=== PATIENT | male | born 1970 | race Caucasian/White ===

== ENCOUNTER 2016-11-04 07:20 | Inpatient (IN) | payer BC ==
[~2016-11-04] VITALS: Ht 175.3 cm; Wt 76.4 kg
[2016-11-04] VITALS (7 sets, daily range): BP systolic 90–116; BP diastolic 64–83
[2016-11-04 07:34] LABS: BASOPHILS % (AUTO) 0 % (0-10); EOSINOPHILS # (AUTO) 0.4 10^3/uL (0.0-0.3); EOSINOPHILS % (AUTO) 4 % (0-10); LYMPHOCYTES # (AUTO) 2.7 X 10^3 (1.0-4.0); LYMPHOCYTES % (AUTO) 24 % (12-44); MEAN CORPUSCULAR HEMOGLOBIN 30 PG (25-34); MEAN CORPUSCULAR HGB CONC 34 G/DL (32-36); MEAN CORPUSCULAR VOLUME 89 FL (80-99); MEAN PLATELET VOLUME 10.5 FL (7.4-10.4); MONOCYTES # (AUTO) 1.2 X 10^3 (0.0-1.0); MONOCYTES % (AUTO) 11 % (0-12); NEUTROPHILS % (AUTO) 61 % (42-75); PLATELET COUNT 368 10^3/uL (130-400); RED BLOOD COUNT 4.71 10^6/uL (4.35-5.85); RED CELL DISTRIBUTION WIDTH 13.2 % (10.0-14.5); WHITE BLOOD COUNT 11.4 10^3/uL (4.3-11.0)
[2016-11-04] MEDS ORDERED: LIDOCAINE 2% VISCOUS 15 ML UDC PO ONE (07:45)
[2016-11-04] MEDS ORDERED: ANTACID SUSP 30 ML UDC (MYLANTA) PO ONE (07:45)
[2016-11-04 07:51] LABS: INR 0.9 (0.8-1.4); PROTHROMBIN TIME PATIENT 12.2 SEC (12.2-14.7)
--- NOTE | 2016-11-04 07:55 | ED Chest Pain ---
General Chief Complaint: Chest Pain Stated Complaint: CHEST PAIN Nursing Triage Note: AMB TO ROOM C/O CHEST TIGHTNESS, PRESSURE OFF AND OFF FOR 2 WEEKS FELT LIKE LAST 2 DAYS HAS GOTTEN WORSE. Nursing Sepsis Screen: No Definite Risk Source: patient Exam Limitations: no limitations History of Present Illness Time seen by provider: 07:25 Initial Comments Patient complains of substernal burning in chest for the past 2 months. It is increased in severity and has become constant for the past 2 days. He has been unable to sleep past 2 nights due to pain. Symptoms are better when upright and worse when supine bus he has been attempting to sleep in a recliner the past few nights. He denies shortness of air or nausea or vomiting. No diaphoresis. Allergies and Home Medications Allergies Coded Allergies: No Known Drug Allergies (Unverified , 11/04/16) Home Medications No Active Prescriptions or Reported Meds Review of Systems Constitutional: No chills, No fever EENTM: No Symptoms Reported Respiratory: No Symptoms Reported Gastrointestinal: No Symptoms Reported Genitourinary: No Symptoms Reported Musculoskeletal: no symptoms reported Skin: no symptoms reported All Other Systems Reviewed Negative Unless Noted: Yes Past Habwpyp-Dcdxkt-Pwglrp Hx Patient Social History Alcohol Use: Occasionally Uses Recreational Drug Use: No Recent Foreign Travel: No Contact w/Someone Who Travel: No Recent Infectious Disease Expo: No Recent Hopitalizations: No Surgeries HX Surgeries: Yes (cyst) Surgeries: Vasectomy Respiratory Hx Respiratory Disorders: No Cardiovascular Hx Cardiac Disorders: No Neurological Hx Neurological Disorders: No Genitourinary Hx Genitourinary Disorders: No Gastrointestinal Hx Gastrointestinal Disorders: No Musculoskeletal Hx Musculoskeletal Disorders: No Endocrine Hx Endocrine Disorders: No HEENT HX ENT Disorders: No Cancer Hx Cancer: No Psychosocial Hx Psychiatric Problems: No Reviewed Nursing Assessment Reviewed/Agree w Nursing PMH: Yes Physical Exam Vital Signs Vital Sign - Last 12Hours 11/04/16 07:20 Temp 98.6 Pulse 75 Resp 18 B/P (MAP) 164/114 Capillary Refill : Less Than 3 Seconds General Appearance: No Apparent Distress, WD/WN HEENT: PERRL/EOMI, Pharynx Normal Neck: Supple Respiratory: Lungs Clear, Normal Breath Sounds Cardiovascular: Regular Rate, Rhythm, No Edema Gastrointestinal: Normal Bowel Sounds, Non Tender Extremity: Normal Inspection, No Pedal Edema, Other (pedal pulses full and equal) Neurologic/Psychiatric: Alert, Normal Mood/Affect Skin: Normal Color, Warm/Dry Progress/Results/Core Measures Results/Orders Lab Results Laboratory Tests Test 11/04/16 07:27 11/04/16 07:29 Range/Units Lipase 19 8-78 U/L White Blood Count 11.4 H 4.3-11.0 10^3/uL Red Blood Count 4.71 4.35-5.85 10^6/uL Hemoglobin 14.3 13.3-17.7 G/DL Hematocrit 42 40-54 % Mean Corpuscular Volume 89 80-99 FL Mean Corpuscular Hemoglobin 30 25-34 PG Mean Corpuscular Hemoglobin Concent 34 32-36 G/DL Red Cell Distribution Width 13.2 10.0-14.5 % Platelet Count 368 130-400 10^3/uL Mean Platelet Volume 10.5 H 7.4-10.4 FL Neutrophils (%) (Auto) 61 42-75 % Lymphocytes (%) (Auto) 24 12-44 % Monocytes (%) (Auto) 11 0-12 % Eosinophils (%) (Auto) 4 0-10 % Basophils (%) (Auto) 0 0-10 % Neutrophils # (Auto) 7.0 1.8-7.8 X 10^3 Lymphocytes # (Auto) 2.7 1.0-4.0 X 10^3 Monocytes # (Auto) 1.2 H 0.0-1.0 X 10^3 Eosinophils # (Auto) 0.4 H 0.0-0.3 10^3/uL Basophils # (Auto) 0.0 0.0-0.1 10^3/uL Prothrombin Time 12.2 12.2-14.7 SEC INR Comment 0.9 0.8-1.4 Activated Partial Thromboplast Time 32 24-35 SEC Sodium Level 137 135-145 MMOL/L Potassium Level 4.0 3.6-5.0 MMOL/L Chloride Level 101 98-107 MMOL/L Carbon Dioxide Level 20 L 21-32 MMOL/L Anion Gap 16 H 5-14 MMOL/L Blood Urea Nitrogen 14 7-18 MG/DL Creatinine 0.84 0.60-1.30 MG/DL Estimat Glomerular Filtration Rate > 60 BUN/Creatinine Ratio 17 Glucose Level 101 70-105 MG/DL Calcium Level 9.3 8.5-10.1 MG/DL Magnesium Level 2.4 1.8-2.4 MG/DL Total Bilirubin 0.3 0.1-1.0 MG/DL Aspartate Amino Transf (AST/SGOT) 55 H 5-34 U/L Alanine Aminotransferase (ALT/SGPT) 24 0-55 U/L Alkaline Phosphatase 71 40-136 U/L Troponin I 4.55 *H <0.30 NG/ML Total Protein 7.9 6.4-8.2 G/DL Albumin 4.6 H 3.2-4.5 G/DL My Orders Orders - PHILLY BARRON MD Cbc With Automated Diff (11/04/16 07:28) Magnesium (11/04/16 07:28) Chest 1 View, Ap/Pa Only (11/04/16:28) Ekg Tracing (11/04/16:28) Cardiac Profile 1 (11/04/16 07:28) Comprehensive Metabolic Panel (11/04/16 07:28) Protime With Inr (11/04/16 07:28) Partial Thromboplastin Time (11/04/16 07:28) O2 (11/04/16 07:28) Monitor-Rhythm Ecg Trace Only (11/04/16 07:28) Saline Lock/Iv-Start (11/04/16 07:28) Lipase (11/04/16 07:37) Antacid Suspension (Mylanta Suspension (11/04/16 07:45) Lidocaine 2% Viscous 15 Ml (Xylocaine Vi (11/04/16 07:45) Amlodipine Tablet (Norvasc Tablet) (11/04/16 08:15) Aspirin Chewable Tablet (Baby Aspirin Ch (11/04/16 08:15) Nitroglycerin Ointment (Nitrobid Ointme (11/04/16 08:15) Metoprolol Succinate (Xl) Tab (Toprol Xl (11/04/16 08:15) Clopidogrel Tablet (Plavix Tablet) (11/04/16 08:15) Clopidogrel Tablet (Plavix Tablet) (11/04/16 08:13) Medications Given in ED Current Medications Medications Dose Ordered Sig/Gayatri Route Start Time Stop Time Status Last Admin Dose Admin Al Hydrox/Mg Hydrox/Simethicone 30 ml ONCE ONCE PO 11/04/16 07:45 11/04/16 07:47 DC 11/04/16 07:51 30 ML Amlodipine Besylate 10 mg ONCE ONCE PO 11/04/16 08:15 11/04/16 08:16 DC 11/04/16 08:18 10 MG Aspirin 324 mg ONCE ONCE PO 11/04/16 08:15 11/04/16 08:16 DC 11/04/16 08:17 324 MG Clopidogrel Bisulfate 300 mg STK-MED ONCE PO 11/04/16 08:13 11/04/16 08:16 DC 11/04/16 08:18 300 MG Lidocaine HCl 5 ml ONCE ONCE PO 11/04/16 07:45 11/04/16 07:47 DC 11/04/16 07:51 5 ML Nitroglycerin 1 inch ONCE ONCE TOP 11/04/16 08:15 11/04/16 08:16 DC 11/04/16 08:20 1 INCH Vital Signs/I&O Vital Sign - Last 12Hours 11/04/16 07:20 Temp 98.6 Pulse 75 Resp 18 B/P (MAP) 164/114 Blood Pressure Mean: 131 ECG Initial ECG Rhythm: Normal Sinus Initial ECG Intervals: Normal Initial ECG Impression: Nonspecific Changes Diagnostic Imaging Comments Date of Exam: 11/04/16 CHEST 1 VIEW, AP/PA ONLY Portable upright radiograph of the chest. INDICATION: Chest pain. FINDINGS: The lungs are clear. Heart size is normal. No effusion or pneumothorax. The mediastinum and david appear unremarkable. IMPRESSION: Unremarkable exam. Departure Communication Time/Spoke to Admitting Phy: 08:[address] Guillermo was contacted immediately after troponin results were obtained. He advised aspirin Toprol and Plavix. He will take the patient to the laboratory chemical assistant later this morning. Dr. Negrete was also contacted she will admit the patient to the ICU. Progress Notes Patient was advised of laboratory findings and plan of care. Impression Impression: Primary Impression: Non-STEMI (non-ST elevated myocardial infarction) Disposition: 09 ADMITTED INPATIENT Condition: Stable Decision to Admit Reason: Admit from ER (General) Decision to Admit/Date: Nov 04, 2016 Time/Decision to Admit Time: 08:25 Departure-Patient Inst. Referrals: ÁNGEL CUMMINGS MD (PCP/Family) Primary Care Physician Scripts No Active Prescriptions or Reported Meds PHILLY BARRON MD Nov 04, 2016 07:55
[2016-11-04 08:04] LABS: ALANINE AMINOTRANSFERASE 24 U/L (0-55); ALBUMIN 4.6 G/DL (3.2-4.5); ANION GAP 16 MMOL/L (5-14); ASPARTATE AMINO TRANSFERASE 55 U/L (5-34); BILIRUBIN,TOTAL 0.3 MG/DL (0.1-1.0); BLOOD UREA NITROGEN 14 MG/DL (7-18); BUN/CREATININE RATIO 17; CALCIUM 9.3 MG/DL (8.5-10.1); CARBON DIOXIDE 20 MMOL/L (21-32); CHLORIDE 101 MMOL/L (98-107); CREATININE SERUM 0.84 MG/DL (0.60-1.30); GFR ESTIMATED > 60; GLUCOSE 101 MG/DL (70-105); MAGNESIUM 2.4 MG/DL (1.8-2.4); SODIUM 137 MMOL/L (135-145); TOTAL PROTEIN 7.9 G/DL (6.4-8.2)
[2016-11-04] MEDS ORDERED: CLOPIDOGREL 300 MG (PLAVIX) TABLET PO ONE ×3 (08:13→10:32)
[2016-11-04] MEDS ORDERED: NITROGLYCERIN 2% OINT 1 GM UNIT DOSE PACKET TOP ONE (08:15)
[2016-11-04] MEDS ORDERED: meTOproloL SUCCINATE 50 MG (TOPROL XL) TAB PO SCH (08:15)
[2016-11-04] MEDS ORDERED: amLODIPine 10 MG (NORVASC) TAB PO ONE (08:15)
[2016-11-04] MEDS ORDERED: ASPIRIN 81 MG CHEW (CHILDREN'S ASA) PO ONE (08:15)
[2016-11-04] MEDS ORDERED: NS IV 1000 ML 1,000 ML IV ONE (09:21)
[2016-11-04] MEDS ORDERED: LIDOCAINE 1% INJ 20 ML (XYLOCAINE) VIAL INJ ONE (09:21)
[2016-11-04] MEDS ORDERED: HEParin (CATH LAB) 1,000 ML IV ONE (09:25)
[2016-11-04] MEDS ORDERED: fentaNYL INJECTION 100 MCG/2 ML AMP ONE (09:29)
[2016-11-04] MEDS ORDERED: NITROGLYCERIN DRIP 25 MG/D5W 250 ML IV ONE (09:29)
[2016-11-04] MEDS ORDERED: MIDAZOLAM 5 MG/5 ML (VERSED) VIAL ONE (09:29)
[2016-11-04] MEDS ORDERED: diphenhydrAMINE 50 MG/ML INJ (BENADRYL) ONE (09:29)
--- NOTE | 2016-11-04 09:31 | Cardiology History & Physical ---
HPI-Cardiology Cardiology H&P Date of Admission 11/04/16 Primary Care Physician Shemar Fernandez MD Attending Physician Ada Rincon MD FACP [facility] Consulting Physician SHIELA CC: Chest pain HPI: 46 yo man with 2 days of waxing and waning, but continuous discomfort: mid chest, burning, sometimes radiating to the L arm, without aggravating or relieving factors, not associated with other symptoms, worse today that prompted him to come to ER] Denies shortness of breath or palp or syncope. Notes chronic borderline htn, untreated. Denies leg swelling Review of Systems-Cardiology Review of Systems Constitutional: No lightheadedness, No malaise, No weight loss, No weight gain Eyes: No vision change Ears/Nose/Throat: No ear discharge, No nasal drainage, No recent hearing loss Respiratory: No orthopnea, No shortness of breath, No wheezing Cardiovascular: As described under HPI Gastrointestinal: No constipation, No diarrhea, No nausea, No vomiting Genitourinary: No dysuria, No hematuria, No urine frequency changes Musculoskeletal: No back pain, No joint pain Skin: No rash, No ulcerations Psychiatric/Neurological: No focal weakness, No seizure, No syncope Hematologic: No bleeding abnormalities All Other Systems Reviewed Negative Unless Noted: Yes OOJ-Lxatiz-Nrlcmz Hx Patient Social History Alcohol Use: Occasionally Uses Recreational Drug Use: No Recent Foreign Travel: No Recent Infectious Disease Expo: No Hospitalization with Isolation: Denies Past Medical History PMH As described under Assessment. Family Medical History Family Medical History: Has fam h/o DM II, but no fam h/o early CAD or SCD Allergies and Home Medications Allergies Coded Allergies: No Known Drug Allergies (Unverified , 11/04/16) Home Medications No Active Prescriptions or Reported Meds Physical Exam-Cardiology Physical Exam Vital Signs/I&O Vital Sign - Last 12Hours 11/04/16 11/04/16 07:20 07:35 Temp 98.6 Pulse 75 Resp 18 B/P (MAP) 164/114 O2 Delivery Nasal Cannula O2 Flow Rate 2.00 Capillary Refill : Less Than 3 Seconds Constitutional: AAO x 3, well-developed, well-nourished HEENT: EOMI, hearing is well preserved, oral hygience is good, No xanthelasmas are seen Neck: No carotid bruit, carotid pulses are 2 + bilaterally, with good upstrokes Respiratory: No accessory muscle use, lungs clear to percussion, lungs clear to auscultation Cardiovascular: regular rate-rhythm, S1 and S2, systolic murmur (faint RAFIA at card base) Gastrointestinal: No tender, soft, No guarding, audible bowel sounds Extremities: No clubbing, No cyanosis, No significant edema Neurologic/Psychiatric: grossly intact, power is 5/5 both on sides Skin: No rash on exposed areas, No ulcerations on exposed areas Data Review Labs Laboratory Tests 11/04/16 07:27: Lipase 19 11/04/16 07:29: White Blood Count 11.4H, Red Blood Count 4.71, Hemoglobin 14.3, Hematocrit 42, Mean Corpuscular Volume 89, Mean Corpuscular Hemoglobin 30, Mean Corpuscular Hemoglobin Concent 34, Red Cell Distribution Width 13.2, Platelet Count 368, Mean Platelet Volume 10.5H, Neutrophils (%) (Auto) 61, Lymphocytes (%) (Auto) 24 , Monocytes (%) (Auto) 11, Eosinophils (%) (Auto) 4, Basophils (%) (Auto) 0, Neutrophils # (Auto) 7.0, Lymphocytes # (Auto) 2.7, Monocytes # (Auto) 1.2H, Eosinophils # (Auto) 0.4H, Basophils # (Auto) 0.0, Prothrombin Time 12.2, INR Comment 0.9, Activated Partial Thromboplast Time 32, Sodium Level 137, Potassium Level 4.0, Chloride Level 101, Carbon Dioxide Level 20L, Anion Gap 16H , Blood Urea Nitrogen 14, Creatinine 0.84, Estimat Glomerular Filtration Rate > 60, BUN/Creatinine Ratio 17, Glucose Level 101, Calcium Level 9.3, Magnesium Level 2.4, Total Bilirubin 0.3, Aspartate Amino Transf (AST/SGOT) 55H, Alanine Aminotransferase (ALT/SGPT) 24, Alkaline Phosphatase 71, Troponin I 4.55*H, Total Protein 7.9, Albumin 4.6H Laboratory Tests 11/04/16 07:29 A/P-Cardiology Assessment/Admission Diagnosis Acute NSTEMI Hypertension Discussion and Recomendations * Treated with aspirin and clopidogrel and beta-sabiha * I had a detailed discussion with him. Cath recommended. I explained the rationale, procedure, risks, benefits and potential complications of card cath and ad hoc cor intervention to him. He understands and wises to proceed. Arrangements are being made Clinical Quality Measures AMI/AHF: ASA po Prior to arrival: Yes (TOOK 325 AT HOME ) ADA RINCON MD FACP FACC CCDS Nov 04, 2016 09:31
[2016-11-04] MEDS ORDERED: NS IV 1000 ML 1,000 ML IV SCH ×2 (09:45→10:38)
[2016-11-04] MEDS ORDERED: HEParin 1000 UNIT/ML (10ML VIAL) FOR BOLUS ONE (09:58)
[2016-11-04] MEDS ORDERED: EPTIFIBATIDE BOLUS 20 ML IV ONE (09:58)
[2016-11-04] MEDS ORDERED: ACETAMINOPHEN 325 MG TABLET/CAPLET (TYLENOL) PO PRN (10:45)
[2016-11-04] MEDS ORDERED: PATIENT MAY USE OWN MEDS, ALL PO SCH (10:45)
[2016-11-04] MEDS ORDERED: lisINopril 10 MG (PRINIVIL) TAB PO NR (11:00)
--- NOTE | 2016-11-04 11:09 | Cardiac Procedure Note-CS/ASA ---
Pre-Procedure Note Pre-Op Procedure Note H&P Reviewed The H&P was reviewed, patient examined and no changes noted. Date H&P Reviewed: Nov 04, 2016 Time H&P Reviewed: 09:10 Conscious Sedation Pre-Proced Time Reviewed: 09:10 ASA Class: 3 Airway Mallampati Classification: (kaltag appropriate class) I. II. III, IV Lungs Heart ASA score ASA 1: a normal healthy patient ASA 2: a patient with a mild systemic disease (mid diabetes, controlled hypertension, obesity ASA 3: a patient with a severe systemic disease that limits activity (angina , COPD, prior Myocardial infarction) ASA 4: a patient with an incapacitating disease that is a constant threat to life (CHF, renal failure) ASA 5: a moribund patient not expected to survive 24 hrs. (ruptured aneurysm) ASA 6: a declared brain patient whose organs are being harvested. For emergent operations, add the letter E after the classification Grade 2 Sedation Plan: Analgesia, Amnesia, Plan communicated to team members, Discussed options with patient/fam, Discussed risks with patient/fam Note The patient is an appropriate candidate to undergo the planned procedure, sedation, and anesthesia. The patient immediately re-assessed prior to indication. ADRYAN RINCON MD FACP FAC CCDS Nov 04, 2016 11:09
--- NOTE | 2016-11-04 12:42 | CARDIAC CATHETERIZATION ---
PROCEDURE PHYSICIAN: ADRYAN RINCON DATE OF PROCEDURE: 11/04/2016 Qasim Spann is a 46-year-old gentleman who presented with acute non-ST elevation myocardial infarction. Cardiac catheterization was carried out after having obtained an informed consent. PROCEDURE: He was brought to the cardiac catheterization laboratory. The right groin was prepared and draped in the usual sterile fashion. 1% lidocaine was used for local anesthesia. Modified Seldinger technique was used to advance a 5-Gibraltarian sheath in the right femoral artery. A 5-Gibraltarian JL4 catheter was used for left coronary angiography. A 5-Gibraltarian JR4 catheter for right coronary angiography. A 5-Gibraltarian pigtail catheter was used for left heart catheterization and left ventricular angiography. PERCUTANEOUS INTERVENTION TO LEFT ANTERIOR DESCENDING ARTERY: Following completion of the diagnostic procedure, we carried out percutaneous intervention to an occluded left anterior descending artery. We exchanged the sheath over a wire for a 6-Gibraltarian sheath. We used a 6-Gibraltarian JL4 guide catheter to engage the left coronary system. We used a ChoICE floppy wire to cross the occlusion in the mid portion of the left anterior descending artery, following origin of the first diagonal branch. The tip was placed in the distal vessel. We carried out balloon angioplasty with Emerge 2.5 x 30 mm balloon. The balloon was removed and we then stented artery with Alpine Xience 2.75 x 28 mm stent. The stent extends up to the origin of the first diagonal branch, but has not been placed across the ostium of the first diagonal branch. Following stent deployment, there is 0% residual stenosis and flow was improved from WIL 0 to WIL 3 in the distal left anterior descending. The proximal left anterior descending, proximal to the bifurcation of the left anterior descending at its first diagonal branch, has approximately 40% stenosis that was not intervened on. The patient tolerated the procedure well. He received 5000 units of intravenous heparin and a double bolus of Integrilin during the procedure. He had received 324 mg of aspirin in the emergency room and 300 mg of Plavix in the emergency room. Following completion of the interventional procedure, we gave another 300 mg of oral Plavix. HEMODYNAMICS: Left ventricular end diastolic pressure following coronary angiography was 11 mmHg. There was no significant pressure gradient on pullback across the aortic valve. Ascending aortic pressure was 120/90 with a mean of 70 mmHg. LEFT VENTRICULAR ANGIOGRAPHY: Left ventricular angiography was carried out in the right anterior oblique projection. There is anteroapical akinesis. Left ventricular ejection fraction is approximately 35 to 40%. There does not appear to be significant mitral regurgitation. CORONARY ANGIOGRAPHY: The left main coronary does not exhibit significant disease. The left anterior descending artery has 40% stenosis at its proximal portion and the left anterior descending artery is occluded following the origin of the first diagonal branch. To this, successful intervention was carried out. Following deployment of Alpine Xience 2.75 x 28 mm stent in the mid left anterior descending artery, there is 0% residual stenosis and normal flow was restored antegradely. The left circumflex artery has mild diffuse plaques. The right coronary artery is dominant and has mild plaques. CONCLUSIONS: 1. Coronary artery disease, primarily consisting of mid vessel occlusion of the left anterior descending artery to which successful stenting was carried out. Following deployment of Alpine Xience 2.75 x 18 mm stent, there is 0% residual stenosis and there is scientology of normal antegrade flow. The proximal left anterior descending artery has 40% stenosis, which was not intervened on. The rest of the coronary vessels have relatively mild plaques. 2. Ischemic cardiomyopathy with an ejection fraction of 35 to 40% and with anteroapical akinesis. 3. Normal left ventricular end-diastolic pressure. 4. No significant mitral regurgitation. DISCUSSION AND RECOMMENDATIONS: Aspirin and clopidogrel and beta blockers and statins have been added to the regimen. We are also adding GEETHA inhibitors, given his ischemic cardiomyopathy. We will evaluate his lipid profile. We have initiated therapy with statins, in the meanwhile. He is being hospitalized for further treatment. Job ID: [id number] Dictated Date: 11/04/2016 11:21:52 Hide Puller Date: 11/04/2016 12:24:24 / rodríguez CHEN
[2016-11-04] MEDS: ATORVASTATIN 20 MG (LIPITOR) TABLET PO SCH (20:38)
[2016-11-05] VITALS (24 sets, daily range): BP systolic 90–136; BP diastolic 63–90
[2016-11-05 04:11] LABS: MEAN PLATELET VOLUME 10.8 FL (7.4-10.4); RED BLOOD COUNT 4.13 10^6/uL (4.35-5.85); RED CELL DISTRIBUTION WIDTH 13.3 % (10.0-14.5); WHITE BLOOD COUNT 12.2 10^3/uL (4.3-11.0)
[2016-11-05 04:34] LABS: ALANINE AMINOTRANSFERASE 19 U/L (0-55); ALBUMIN 3.7 G/DL (3.2-4.5); ANION GAP 8 MMOL/L (5-14); ASPARTATE AMINO TRANSFERASE 46 U/L (5-34); BLOOD UREA NITROGEN 11 MG/DL (7-18); BUN/CREATININE RATIO 13; CALCIUM 8.7 MG/DL (8.5-10.1); CARBON DIOXIDE 26 MMOL/L (21-32); CHLORIDE 103 MMOL/L (98-107); CHOLESTEROL 171 MG/DL (< 200); CREATININE SERUM 0.84 MG/DL (0.60-1.30); DIRECT LDL 120 MG/DL (1-129); GFR ESTIMATED > 60; GLUCOSE 97 MG/DL (70-105); POTASSIUM 4.2 MMOL/L (3.6-5.0); SODIUM 137 MMOL/L (135-145); TOTAL PROTEIN 6.1 G/DL (6.4-8.2); TRIGLYCERIDES 152 MG/DL (<150); VLDL CHOLESTEROL 30 MG/DL (5-40)
[2016-11-05 04:54] LABS: THYROID STIMULATING HORMONE 0.31 UIU/ML (0.35-4.94)
[2016-11-05] MEDS ORDERED: FLU TRIvalent (5 YOA+) 2016-17 (AFLURIA) 0.5 ML IM ONE (09:00)
[2016-11-05] MEDS ORDERED: meTOproloL SUCCINATE 50 MG (TOPROL XL) TAB PO SCH (09:00)
[2016-11-05] MEDS ORDERED: lisINopril 10 MG (PRINIVIL) TAB PO SCH (09:00)
[2016-11-05] MEDS: CLOPIDOGREL 75 MG (PLAVIX) TABLET PO SCH (09:23)
[2016-11-05] MEDS: ASPIRIN E.C. 81 MG (ECOTRIN) TAB PO SCH (09:23)
--- NOTE | 2016-11-05 14:47 | Progress Note-Cardiology ---
Cardiology SOAP Progress Note Subjective: No chest pain or palp or syncope. Feels better Objective: I&O/Vital Signs Vital Sign - Last 12Hours 11/05/16 11/05/16 11/05/16 11/05/16 03:00 04:00 05:00 05:26 Temp 98.4 B/P (MAP) 99/67 100/65 94/64 Pulse Ox 95 96 96 11/05/16 11/05/16 11/05/16 11/05/16 06:00 07:00 08:29 12:00 Temp 99.9 98.2 Pulse 72 71 Resp 22 B/P (MAP) 96/69 Pulse Ox 94 11/05/16 11/05/16 12:00 13:00 Temp 98.2 Pulse 67 Intake and Output 11/05/16 00:00 Intake Total 805 ml Output Total 550 ml Balance 255 ml Weight (Pounds): 169 Weight (Ounces): 4.0 Weight (Calculated Kilograms): [id number] Groin site without hematoma: Yes Bruising: mild bruising Constitutional: AAO x 3, well-developed, well-nourished Respiratory: No accessory muscle use, lungs clear to percussion, lungs clear to auscultation Cardiovascular: regular rate-rhythm, S1 and S2, systolic murmur (faint RAFIA at card base) Gastrointestional: No tender, soft, No guarding, audible bowel sounds Extremities: No clubbing, No cyanosis, No significant edema Neurologic/Psychiatric: grossly intact, power is 5/5 both on sides Skin: No rash on exposed areas, No ulcerations on exposed areas Results/Procedures: Labs Laboratory Tests 11/05/16 03:40: White Blood Count 12.2H, Red Blood Count 4.13L, Hemoglobin 12.7L, Hematocrit 38L , Mean Corpuscular Volume 91, Mean Corpuscular Hemoglobin 31, Mean Corpuscular Hemoglobin Concent 34, Red Cell Distribution Width 13.3, Platelet Count 327, Mean Platelet Volume 10.8H, Sodium Level 137, Potassium Level 4.2, Chloride Level 103, Carbon Dioxide Level 26, Anion Gap 8, Blood Urea Nitrogen 11, Creatinine 0.84, Estimat Glomerular Filtration Rate > 60, BUN/Creatinine Ratio 13, Glucose Level 97, Calcium Level 8.7, Total Bilirubin 1.0, Aspartate Amino Transf (AST/SGOT) 46H, Alanine Aminotransferase (ALT/SGPT) 19, Alkaline Phosphatase 65, Total Protein 6.1L, Albumin 3.7, Triglycerides Level 152H, Cholesterol Level 171, LDL Cholesterol Direct 120, VLDL Cholesterol 30, HDL Cholesterol 30L, Thyroid Stimulating Hormone (TSH) 0.31L Laboratory Tests 11/04/16 07:29 11/05/16 03:40 A/P: Assessment: Acute NSTEMI CAD. Card cath of 11/04/16 showed occlusion of mid-LAD to which successful intervention was undertaken. Following deployment of Alp Xience 2.75 x 28 mm stent, there in no residual stenosis. Prox LAD has 40% stenosis. Other cors have mild plaque Ischemic cm. LVEF 35-40% on card cath of 11/04/16 Fam h/o early CAD Dyslipidemia TSH mildly low Hypertension Plan: * I had a detailed discussion with him and his fam regarding the findings and interventions of 11/04/16 * BP is a limiting factor in bb and GEETHA-inhib therapy. We have had to reduce dosages * Will proceed with echo to establish a baseline EF Clinical Quality Measures AMI/AHF: ASA po Prior to arrival: Yes (TOOK 325 AT HOME ) ADRYAN RINCON MD FACP FAC CCDS Nov 05, 2016 14:47
[2016-11-05] MEDS: ATORVASTATIN 20 MG (LIPITOR) TABLET PO SCH (20:22)
[2016-11-05] MEDS ORDERED: lisINopril 5 MG (PRINIVIL) TABLET PO SCH (21:00)
[2016-11-06] VITALS (12 sets, daily range): BP systolic 94–118; BP diastolic 64–92
[2016-11-06 04:27] LABS: BASOPHILS % (AUTO) 0 % (0-10); EOSINOPHILS # (AUTO) 0.3 10^3/uL (0.0-0.3); EOSINOPHILS % (AUTO) 3 % (0-10); LYMPHOCYTES # (AUTO) 2.7 X 10^3 (1.0-4.0); LYMPHOCYTES % (AUTO) 28 % (12-44); MEAN CORPUSCULAR HEMOGLOBIN 30 PG (25-34); MEAN CORPUSCULAR HGB CONC 33 G/DL (32-36); MEAN CORPUSCULAR VOLUME 91 FL (80-99); MEAN PLATELET VOLUME 10.5 FL (7.4-10.4); MONOCYTES # (AUTO) 1.1 X 10^3 (0.0-1.0); MONOCYTES % (AUTO) 12 % (0-12); NEUTROPHILS # (AUTO) 5.5 X 10^3 (1.8-7.8); NEUTROPHILS % (AUTO) 58 % (42-75); PLATELET COUNT 333 10^3/uL (130-400); WHITE BLOOD COUNT 9.6 10^3/uL (4.3-11.0)
[2016-11-06 04:55] LABS: ALANINE AMINOTRANSFERASE 16 U/L (0-55); ALBUMIN 3.8 G/DL (3.2-4.5); ANION GAP 10 MMOL/L (5-14); ASPARTATE AMINO TRANSFERASE 27 U/L (5-34); BILIRUBIN,TOTAL 0.8 MG/DL (0.1-1.0); BLOOD UREA NITROGEN 12 MG/DL (7-18); BUN/CREATININE RATIO 15; CALCIUM 8.8 MG/DL (8.5-10.1); CARBON DIOXIDE 24 MMOL/L (21-32); CHLORIDE 104 MMOL/L (98-107); CREATININE SERUM 0.81 MG/DL (0.60-1.30); GFR ESTIMATED > 60; GLUCOSE 93 MG/DL (70-105); MAGNESIUM 2.2 MG/DL (1.8-2.4); POTASSIUM 4.1 MMOL/L (3.6-5.0); SODIUM 138 MMOL/L (135-145); TOTAL PROTEIN 6.5 G/DL (6.4-8.2)
[2016-11-06] MEDS: ASPIRIN E.C. 81 MG (ECOTRIN) TAB PO SCH (09:53)
[2016-11-06] MEDS: CLOPIDOGREL 75 MG (PLAVIX) TABLET PO SCH (09:53)
--- NOTE | 2016-11-06 13:52 | Progress Note-Cardiology ---
Cardiology SOAP Progress Note Subjective: Other than one or two episodes of mild chest tightness, he has not had symptoms. The kind of discomfort that he had prior to cor intervention has resolved. His stamina and exertional capacity have improved. He feels much better. He denies palp or syncope or shortness of breath. He wishes to go home Objective: I&O/Vital Signs Vital Sign - Last 12Hours 11/06/16 11/06/16 11/06/16 11/06/16 02:00 03:00 03:53 05:00 Temp 98.9 Pulse 76 62 63 Resp 18 18 B/P (MAP) 110/78 104/68 111/69 Pulse Ox 98 96 96 O2 Delivery Room Air Room Air Room Air Room Air 11/06/16 11/06/16 11/06/16 11/06/16 06:00 07:00 07:00 08:00 Pulse 60 74 68 63 B/P (MAP) 94/64 108/74 118/76 Pulse Ox 96 96 98 O2 Delivery Room Air Room Air Room Air 11/06/16 11/06/16 11/06/16 11/06/16 08:00 09:00 10:00 11:00 Temp 97.8 Pulse 71 77 70 B/P (MAP) 113/87 110/92 111/76 Pulse Ox 98 O2 Delivery Room Air Room Air Room Air Intake and Output 11/06/16 00:00 Intake Total 1875 ml Balance 1875 ml Weight (Pounds): 168 Weight (Ounces): 7.0 Weight (Calculated Kilograms): 76.301839 Groin site without hematoma: Yes Bruising: mild bruising Constitutional: AAO x 3, well-developed, well-nourished Respiratory: No accessory muscle use, lungs clear to percussion, lungs clear to auscultation Cardiovascular: regular rate-rhythm, S1 and S2, systolic murmur (faint RAFIA at card base) Gastrointestional: No tender, soft, No guarding, audible bowel sounds Extremities: No clubbing, No cyanosis, No significant edema Neurologic/Psychiatric: grossly intact, power is 5/5 both on sides Skin: No rash on exposed areas, No ulcerations on exposed areas Results/Procedures: Labs Laboratory Tests 11/06/16 04:00: White Blood Count 9.6, Red Blood Count 4.20L, Hemoglobin 12.7L, Hematocrit 38L, Mean Corpuscular Volume 91, Mean Corpuscular Hemoglobin 30, Mean Corpuscular Hemoglobin Concent 33, Red Cell Distribution Width 13.0, Platelet Count 333, Mean Platelet Volume 10.5H, Neutrophils (%) (Auto) 58, Lymphocytes (%) (Auto) 28 , Monocytes (%) (Auto) 12, Eosinophils (%) (Auto) 3, Basophils (%) (Auto) 0, Neutrophils # (Auto) 5.5, Lymphocytes # (Auto) 2.7, Monocytes # (Auto) 1.1H, Eosinophils # (Auto) 0.3, Basophils # (Auto) 0.0, Sodium Level 138, Potassium Level 4.1, Chloride Level 104, Carbon Dioxide Level 24, Anion Gap 10, Blood Urea Nitrogen 12, Creatinine 0.81, Estimat Glomerular Filtration Rate > 60, BUN/ Creatinine Ratio 15, Glucose Level 93, Calcium Level 8.8, Magnesium Level 2.2, Total Bilirubin 0.8, Aspartate Amino Transf (AST/SGOT) 27, Alanine Aminotransferase (ALT/SGPT) 16, Alkaline Phosphatase 58, Total Protein 6.5, Albumin 3.8 Laboratory Tests 11/05/16 03:40 11/06/16 04:00 A/P: Assessment: Acute NSTEMI, treated (see below) CAD. Card cath of 11/04/16 showed occlusion of mid-LAD to which successful intervention was undertaken. Following deployment of Alp Xience 2.75 x 28 mm stent, there in no residual stenosis. Prox LAD has 40% stenosis. Other cors have mild plaque Ischemic cm. LVEF 35-40% on card cath of 11/04/16. This appears much improved on echo of 11/05/15 that shows only mild distal septal and anteroapical hypokinesis and LVEF of approx 50% Fam h/o early CAD Dyslipidemia TSH mildly low Hypertension, controlled Plan: * I again had a detailed discussion with him and his regarding his CV issues and his treatment regimen and the importance of compliance and f/u * BP is a limiting factor in bb and GEETHA-inhib therapy. We have had to reduce dosages. He is tolerating current dosages of the mes * Close outpatient f/u is advised Clinical Quality Measures AMI/AHF: ASA po Prior to arrival: Yes (TOOK 325 AT HOME ) ADRYAN RINCON MD FACP FAC CCDS Nov 06, 2016 13:52
[2016-11-06] MEDS ORDERED: LISI-556 PO (13:56)
[2016-11-06] MEDS ORDERED: ASPI-999 PO (13:56)
[2016-11-06] MEDS ORDERED: METO-270 PO (13:56)
[2016-11-06] MEDS ORDERED: CLOP75TA28 PO (13:56)
[2016-11-06] MEDS ORDERED: ATOR20TA66 PO (13:56)
--- NOTE | 2016-11-06 13:57 | Discharge Inst-Post CATH ---
Discharge Inst-CATH Post Cardiac Cath D/C Inst Follow Up/Plan F/u with Dr Guillermo on 11/10 or 11/11/16 CARDIAC CATH DISCHARGE INSTRUCTIONS *Hold Metformin for 48 hours post heart cath. ACTIVITY * Go Home directly and rest. * Limit activity of the leg (or wrist if it was used) for 7 days including aerobics, swimming, jogging, bicycling, etc. * Restrict stair-climbing for 7 days if possible, if not, climb up with your non -cath leg, then bring together on the same step. * Avoid lifting, pushing, pulling or excessive movement of the affected extremity for 7 days. * Customary sexual activity may be resumed after 2 days-use caution not to use a position that strains or causes pain to the affected extremity. * No driving for 24 hours. * NO SMOKING. * Avoid straining for bowel movements for 7 days. * Gentle walking on level ground is allowed. * Returning to work will depend on the type of procedure and the results. Your doctor will discuss this with you. CALL YOUR DOCTOR FOR ANY OF THE FOLLOWING: *If bleeding from the puncture site occurs- Apply gentle pressure to site with clean cloth and call your doctor or EMS. * If a knot or lump forms under the skin, increases in size, or causes pain. * If bruising appears to be worsening or moving further down your leg instead of disappearing. * Temperature above 101 F. CARE OF YOUR GROIN INCISION; * Bruising or purple discoloration of the skin near the puncture site is common. * You may shower only, no bathtub bathing for 5 days. Be careful to avoid slipping as your leg may feel stiff. * If a closure device was used on your femoral artery, please see the attached guide regarding care of the device and your leg. * REMOVE the dressing from your groin the next day after your procedure in the shower. CARE OF YOUR WRIST INCISION; * Bruising or purple discoloration of the skin near the puncture site is common. * You may shower. * DO NOT submerge wrist. * Remove dressing in 24 hours. ADRYAN GUILLERMO MD [facility] CCDS Nov 06, 2016 13:57
--- NOTE | 2016-11-06 13:58 | Discharge Inst-Cardiology ---
Discharge Inst-Cardiac Discharge Medications New Medications: Aspirin (Aspirin) 81 Mg Tab.chew 81 MG PO DAILY for 90 Days, #90 TAB 3 Refills Atorvastatin Calcium (Atorvastatin Calcium) 20 Mg Tablet 40 MG PO HS for 90 Days, #90 TAB 3 Refills Clopidogrel Bisulfate (Clopidogrel) 75 Mg Tablet 75 MG PO DAILY for 90 Days, #90 TAB 3 Refills Lisinopril (Lisinopril) 5 Mg Tablet 5 MG PO HS for 90 Days, #90 TAB 3 Refills Metoprolol Succinate (Metoprolol Succinate) 25 Mg Tab.er.24h 25 MG PO DAILY for 90 Days, #90 TAB 3 Refills Activity & Diet Discharge Diet: Cardiac Diet ADRYAN RINCON MD FACP FAC CCDS Nov 06, 2016 13:58
[2016-11-06] MEDS ORDERED: ASPIRIN 81 MG CHEW (CHILDREN'S ASA) PO NR (14:00)
--- NOTE | 2016-11-06 14:04 | Cardiology Discharge Summary ---
Diagnosis/Chief Complaint Date of Admission Nov 04, 2016 at 08:20 Date of Discharge 11/06/16 Final/Discharge Diagnosis Acute NSTEMI, treated (see below) CAD. Card cath of 11/04/16 showed occlusion of mid-LAD to which successful intervention was undertaken. Following deployment of Alp Xience 2.75 x 28 mm stent, there in no residual stenosis. Prox LAD has 40% stenosis. Other cors have mild plaque Ischemic cm. LVEF 35-40% on card cath of 11/04/16. This appears much improved on echo of 11/05/15 that shows only mild distal septal and anteroapical hypokinesis and LVEF of approx 50% Fam h/o early CAD Dyslipidemia TSH mildly low Hypertension, controlled Chief Complaint/HPI Chief Complaint/HPI CC: Chest pain HPI: 46 yo man with 2 days of waxing and waning, but continuous discomfort: mid chest, burning, sometimes radiating to the L arm, without aggravating or relieving factors, not associated with other symptoms, worse today that prompted him to come to ER] Denies shortness of breath or palp or syncope. Notes chronic borderline htn, untreated. Denies leg swelling For condition at discharge, please refer to my progress of the note of today's date Time spent in patient interview and exam and answering questions and preparing discharge and writing meds and writing notes: 1:29 pm to 2:04 pm Discharge Summary Procedures Card cath and PCI on 11/04/16 Echo on 11/05/16 Discussion & Recommendations Dicharge Diet: Cardiac Diet Home Medications Reviewed patient Home Medication Reconciliation Form Discharge Home Medications: Reviewed and agree with Discharge Medication list on patient's Discharge Instruction sheet Instructions to patient/family F/u with Dr Guillermo on 11/10 or 11/11/16 Clinical Quality Measures AMI/AHF: ASA po Prior to arrival: Yes (TOOK 325 AT HOME ) DVT/VTE Risk/Contraindication: Risk Factor Score Per Nursin RFS Level Per Nursing on Admit: 4+=Very High ADRYAN GUILLERMO MD FACP FAC CCDS Nov 06, 2016 14:04
--- NOTE | 2016-11-06 14:38 | ECHOCARDIOGRAPHY REPORT ---
PROCEDURE PHYSICIAN: ADRYAN GUILLERMO DATE OF PROCEDURE: 11/06/2016 TWO DIMENSIONAL ECHOCARDIOGRAM REPORT PRIMARY PHYSICIAN: Dr. Fernandez OTHER PHYSICIAN: REFERRING PHYSICIAN: ORDERING PHYSICIAN: Dr. Guillermo INDICATION FOR THE PROCEDURE: Coronary artery disease, recent myocardial infarction MEASUREMENTS DERIVED VALUES LV DIAMETER (LAX) NORMALS NORMALS Diastolic 4.9 (3.6-5.2) Eject. Fract. (60%+/-6%) Systolic (2.3-3.9) Diastolic Vol. % Shortening (0.22-0.42) Systolic Vol. Aortic Root 3.2 IVS THICKNESS Diastolic 1. (0.6-1.1) LVPW THICKNESS Diastolic 0.9 (0.6-1.1) LA DIAMETER Systolic 3.2 (2.1-3.7) DESCRIPTION: Two-dimensional echocardiography shows well preserved global left ventricular function. There is distal septal and anteroapical hypokinesis. Left ventricular ejection fraction is approximately 50%. Aortic, mitral and tricuspid valve leaflets show good leaflet excursion. There is no significant pericardial effusion. Doppler imaging did not show any significant valvular regurgitation or stenosis. Pulmonary artery systolic pressure is estimated to be approximately 25 mmHg. There is no evidence of significant intracardiac shunt on this transthoracic echocardiographic study. Inferior vena cava appears to be of normal size and exhibits normal inspiratory collapse. CONCLUSION: 1. Mild impairment of global left ventricular systolic function with mild hypokinesis of the distal septum in the anteroapical wall. Left ventricular ejection fraction approximately 50%. 2. No significant valvular regurgitation or stenosis. 3. Pulmonary artery systolic pressure is estimated approximately 25 mmHg. Job ID: [id number] Dictated Date: 11/06/2016 13:14:08 Electric Repair Supervisor Date: 11/06/2016 14:32:32 / rodríguez
== END 2016-11-06 14:45 | disposition home or self-care (01) | DRG 247 ==
LOC: DELPENDDIS → EDUNIT# 07:20 → ER 07:22 → ICU 08:20
PROVIDERS: ADMIT Internal Medicine Cardiovascular Disease; ATTEND Internal Medicine Cardiovascular Disease
PROC: 027034Z Dilation of Coronary Artery, One Artery with Drug-eluting Intraluminal Device, Percutaneous Approach (ICD-10-PCS; principal; 2016-11-04)
PROC: 4A023N7 Measurement of Cardiac Sampling and Pressure, Left Heart, Percutaneous Approach (ICD-10-PCS; 2016-11-04)
PROC: B2151ZZ Fluoroscopy of Left Heart using Low Osmolar Contrast (ICD-10-PCS; 2016-11-04)
PROC: B2111ZZ Fluoroscopy of Multiple Coronary Arteries using Low Osmolar Contrast (ICD-10-PCS; 2016-11-04)
DX: I21.4 Non-ST elevation (NSTEMI) myocardial infarction (principal); I10 Essential (primary) hypertension; I25.10 Atherosclerotic heart disease of native coronary artery without angina pectoris; I25.5 Ischemic cardiomyopathy; E78.5 Hyperlipidemia, unspecified; Z82.49 Family history of ischemic heart disease and other diseases of the circulatory system
CPT/HCPCS: 36415; 71010; 80053; 80061; 83690; 83735; 84443; 84484; 85025; 85027; 85610; 85730; 93005; 93041; 93306; 93458

== ENCOUNTER 2016-11-25 19:13 | Observation (INO) | payer BC ==
[~2016-11-25] VITALS: Ht 175.3 cm; Wt 78.0 kg
[~2016-11-25 19:13] MED LIST: ASPI-999 PO; ATOR20TA66 PO; CLOP75TA28 PO; LISI-556 PO; METO-270 PO
[2016-11-25] MEDS ORDERED: ASPIRIN 81 MG CHEW (CHILDREN'S ASA) PO ONE (19:30)
[2016-11-25] MEDS ORDERED: RX-NITROGLYCERIN 0.4 MG TAB BTL 25'S SL ONE (19:30)
--- NOTE | 2016-11-25 19:39 | ED Chest Pain ---
General Chief Complaint: Chest Pain Stated Complaint: L ARM NUMBNESS AND CP Source: patient Exam Limitations: no limitations History of Present Illness Time seen by provider: 19:24 Initial Comments Here with report of chest pain centrally that started about 430 p.m. and then increased to include his left arm. Describes that as an ache. Also has some central pressure. Denies nausea, vomiting, weakness or breathing problems. Had non-ST elevation NC on 11/04/16 and had heart catheterization with stent placement at that time. Noted to have significant LAD lesion. He has been fine since and states that he's been taking his medicines as directed. Timing/Duration: 4-6 hours Severity/Quality: moderate Location: central Radiation: arms (left) Activities at Onset: none Prior CP/Workup: cardiac cath, echocardiography, heart attack ASA po [employer]IOR [employer] DEVELOPER: Yes NTG SL SENIOR [employer] DEVELOPER: No Associated Symptoms: No abdominal pain, No back pain, No nausea/vomiting, No shortness of breath, No weakness Allergies and Home Medications Allergies Coded Allergies: No Known Drug Allergies (Unverified , 11/04/16) Home Medications Aspirin 81 Mg Tab.chew, 81 MG PO DAILY for 90 Days, #90 Ref 3 Prescribed by: ADRYAN RINCON on 11/06/16 1356 Atorvastatin Calcium 20 Mg Tablet, 40 MG PO HS for 90 Days, #90 Ref 3 Prescribed by: ADRYAN RINCON on 11/06/16 1356 Clopidogrel Bisulfate 75 Mg Tablet, 75 MG PO DAILY for 90 Days, #90 Ref 3 Prescribed by: ADRYAN RINCON on 11/06/16 1356 Lisinopril 5 Mg Tablet, 5 MG PO HS for 90 Days, #90 Ref 3 Prescribed by: ADRYAN RINCON on 11/06/16 1356 Metoprolol Succinate 25 Mg Tab.er.24h, 25 MG PO DAILY for 90 Days, #90 Ref 3 Prescribed by: ADRYAN RINCON on 11/06/16 1356 Review of Systems Constitutional: see HPI, No chills, No fever EENTM: No Symptoms Reported Respiratory: Denies Shortness of Air, Denies Wheezing Cardiovascular: See HPI, Chest Pain, Denies Edema, Denies Lightheadedness, Denies Palpitations Gastrointestinal: No Symptoms Reported, Denies Nausea, Denies Vomiting Genitourinary: No Symptoms Reported Musculoskeletal: no symptoms reported All Other Systems Reviewed Negative Unless Noted: Yes Past Zjxaqab-Ieuthg-Dyexga Hx Patient Social History Alcohol Use: Occasionally Uses Recreational Drug Use: No Smoking Status: Never a Smoker Recent Foreign Travel: No Contact w/Someone Who Travel: No Recent Hopitalizations: No Seasonal Allergies Seasonal Allergies: Yes Surgeries HX Surgeries: Yes (cyst) Surgeries: Coronary Stent, Vasectomy Respiratory Hx Respiratory Disorders: No Cardiovascular Hx Cardiac Disorders: Yes Cardiac Disorders: Coronary Artery Disease, Heart Attack Neurological Hx Neurological Disorders: No Genitourinary Hx Genitourinary Disorders: No Gastrointestinal Hx Gastrointestinal Disorders: No Musculoskeletal Hx Musculoskeletal Disorders: No Endocrine Hx Endocrine Disorders: No HEENT HX ENT Disorders: No Cancer Hx Cancer: No Psychosocial Hx Psychiatric Problems: No Integumentary HX Skin/Integumentary Disorder: No Reviewed Nursing Assessment Reviewed/Agree w Nursing PMH: Yes Family Medical History Significant Family History: No Pertinent Family Hx Physical Exam Vital Signs Vital Sign - Last 12Hours 11/25/16 19:26 Temp 98.4 Pulse 62 Resp 18 B/P (MAP) 137/65 Capillary Refill : NONE General Appearance: No Apparent Distress, WD/WN HEENT: PERRL/EOMI, Pharynx Normal Neck: Non Tender, Supple Respiratory: Lungs Clear, Normal Breath Sounds, No Wheezing Cardiovascular: Regular Rate, Rhythm, No Murmur Gastrointestinal: No Pulsatile Mass, Non Tender, Soft Extremity: Normal Range of Motion, Non Tender, No Calf Tenderness, No Pedal Edema Neurologic/Psychiatric: Alert, Oriented x3, No Motor/Sensory Deficits, Normal Mood/Affect Skin: Normal Color, Warm/Dry Progress/Results/Core Measures Results/Orders Lab Results Laboratory Tests Test 11/25/16 19:24 Range/Units White Blood Count 9.4 4.3-11.0 10^3/uL Red Blood Count 4.43 4.35-5.85 10^6/uL Hemoglobin 13.6 13.3-17.7 G/DL Hematocrit 40 40-54 % Mean Corpuscular Volume 90 80-99 FL Mean Corpuscular Hemoglobin 31 25-34 PG Mean Corpuscular Hemoglobin Concent 34 32-36 G/DL Red Cell Distribution Width 12.5 10.0-14.5 % Platelet Count 401 H 130-400 10^3/uL Mean Platelet Volume 10.6 H 7.4-10.4 FL Neutrophils (%) (Auto) 59 42-75 % Lymphocytes (%) (Auto) 30 12-44 % Monocytes (%) (Auto) 7 0-12 % Eosinophils (%) (Auto) 4 0-10 % Basophils (%) (Auto) 0 0-10 % Neutrophils # (Auto) 5.6 1.8-7.8 X 10^3 Lymphocytes # (Auto) 2.8 1.0-4.0 X 10^3 Monocytes # (Auto) 0.7 0.0-1.0 X 10^3 Eosinophils # (Auto) 0.4 H 0.0-0.3 10^3/uL Basophils # (Auto) 0.0 0.0-0.1 10^3/uL Prothrombin Time 13.4 12.2-14.7 SEC INR Comment 1.1 0.8-1.4 Activated Partial Thromboplast Time 32 24-35 SEC Sodium Level 138 135-145 MMOL/L Potassium Level 3.9 3.6-5.0 MMOL/L Chloride Level 105 98-107 MMOL/L Carbon Dioxide Level 20 L 21-32 MMOL/L Anion Gap 13 5-14 MMOL/L Blood Urea Nitrogen 17 7-18 MG/DL Creatinine 0.84 0.60-1.30 MG/DL Estimat Glomerular Filtration Rate > 60 BUN/Creatinine Ratio 20 Glucose Level 77 70-105 MG/DL Calcium Level 9.1 8.5-10.1 MG/DL Magnesium Level 2.1 1.8-2.4 MG/DL Total Bilirubin 0.8 0.1-1.0 MG/DL Aspartate Amino Transf (AST/SGOT) 22 5-34 U/L Alanine Aminotransferase (ALT/SGPT) 22 0-55 U/L Alkaline Phosphatase 64 40-136 U/L Myoglobin 26.8 10.0-92.0 NG/ML Troponin I < 0.30 <0.30 NG/ML Total Protein 7.3 6.4-8.2 G/DL Albumin 4.5 3.2-4.5 G/DL My Orders Orders - GRACE AREVALO MD Clopidogrel Tablet (Plavix Tablet) (11/25/16 20:45) Enoxaparin Injection (Lovenox Injection) (11/25/16 20:45) Medications Given in ED Current Medications Medications Dose Ordered Sig/Gayatri Route Start Time Stop Time Status Last Admin Dose Admin Aspirin 324 mg ONCE ONCE PO 11/25/16 19:30 11/25/16 19:31 DC 11/25/16 19:32 324 MG Clopidogrel Bisulfate 600 mg ONCE ONCE PO 11/25/16 20:45 11/25/16 20:46 DC 11/25/16 20:53 600 MG Enoxaparin Sodium 80 mg ONCE ONCE SC 11/25/16 20:45 11/25/16 20:46 DC 11/25/16 20:52 80 MG Nitroglycerin 0.4 mg UD ONCE SL 11/25/16 19:30 11/25/16 19:31 DC 11/25/16 19:32 0.4 MG Vital Signs/I&O Vital Sign - Last 12Hours 11/25/16 11/25/16 11/25/16 19:26 19:26 19:26 Temp 98.4 Pulse 62 Resp 18 B/P (MAP) 137/65 Pulse Ox 95 97 O2 Delivery Nasal Cannula Nasal Cannula Nasal Cannula O2 Flow Rate 2.00 2.00 2.00 Progress Note : Progress Note Seen and evaluated. IV, labs, EKG and chest x-ray ordered. ASA 324 mg by mouth. Nitroglycerin sublingual ordered. Monitor patient. EKG without changes. 2035: Discussed case with Dr. Barrera. Recommended Plavix 600 mg by mouth and Lovenox weight-based which were ordered. Given patient's history and presentation, patient will need observation admission per him. He will consult. Discussed case with Dr. Rocha who accepts patient for admission, observation status. Discussed findings and concerns with patient and family who agree with plan. Admit, observation status. ECG Initial ECG Impression Date: Nov 25, 2016 Initial ECG Impression Time: 19:19 Initial ECG Rate: 59 Initial ECG Rhythm: Normal Sinus Initial ECG Comparisson: Unchanged Comment Sinus rhythm with left atrial abnormality and nonspecific T-wave abnormalities. Normal axis. Overall similar to previous of 11/06/16. Interpreted by me. Diagnostic Imaging Diagonstic Imaging: Xray Plain Films/CT/US/NM/MRI: chest Comments NAME: WAQAS LACY MED REC#: [id number] PT STATUS: REG ER : 1970 PHYSICIAN: SOPHIE CR APRN ADMIT DATE: 11/25/16/ER Signed Date of Exam: 11/25/16 CHEST 1 VIEW, AP/PA ONLY INDICATION: Chest pain Frontal chest obtained at 7:35 p.m. and compared to 11/04/16. Heart is borderline in size. Lungs are clear. There is no pneumothorax or pleural fluid. IMPRESSION: Borderline heart size with no acute process in the chest. Dictated by: Dictated on workstation # [id number] <Dictated by LAUREL OLVERA MD> 11/25/161 Departure Communication Time/Spoke to Admitting Phy: 20:41 Time/Spoke to Consulting Physi: 20:36 Impression Impression: Primary Impression: Chest pain Qualified Codes: R07.9 - Chest pain, unspecified Disposition: ADMITTED INPATIENT Condition: Stable Decision to Admit Reason: Admit from ER (General) Decision to Admit/Date: Nov 25, 2016 Time/Decision to Admit Time: 20:41 Departure-Patient Inst. Referrals: ÁNGEL CUMMINGS MD (PCP/Family) Primary Care Physician GRACE AREVALO MD Nov 25, 2016 19:39
--- NOTE | 2016-11-25 19:48 | Diagnostic Imaging Report ---
INDICATION: Chest pain Frontal chest obtained at 7:35 p.m. and compared to 11/04/16. Heart is borderline in size. Lungs are clear. There is no pneumothorax or pleural fluid. IMPRESSION: Borderline heart size with no acute process in the chest. Dictated by: Dictated on workstation # [id number]
[2016-11-25 19:54] LABS: BASOPHILS % (AUTO) 0 % (0-10); EOSINOPHILS # (AUTO) 0.4 10^3/uL (0.0-0.3); EOSINOPHILS % (AUTO) 4 % (0-10); LYMPHOCYTES # (AUTO) 2.8 X 10^3 (1.0-4.0); LYMPHOCYTES % (AUTO) 30 % (12-44); MEAN CORPUSCULAR HEMOGLOBIN 31 PG (25-34); MEAN CORPUSCULAR HGB CONC 34 G/DL (32-36); MEAN CORPUSCULAR VOLUME 90 FL (80-99); MEAN PLATELET VOLUME 10.6 FL (7.4-10.4); MONOCYTES # (AUTO) 0.7 X 10^3 (0.0-1.0); MONOCYTES % (AUTO) 7 % (0-12); NEUTROPHILS # (AUTO) 5.6 X 10^3 (1.8-7.8); NEUTROPHILS % (AUTO) 59 % (42-75); PLATELET COUNT 401 10^3/uL (130-400); RED BLOOD COUNT 4.43 10^6/uL (4.35-5.85); RED CELL DISTRIBUTION WIDTH 12.5 % (10.0-14.5); WHITE BLOOD COUNT 9.4 10^3/uL (4.3-11.0)
[2016-11-25 19:57] LABS: INR 1.1 (0.8-1.4); PROTHROMBIN TIME PATIENT 13.4 SEC (12.2-14.7)
[2016-11-25 20:12] LABS: ALANINE AMINOTRANSFERASE 22 U/L (0-55); ALBUMIN 4.5 G/DL (3.2-4.5); ANION GAP 13 MMOL/L (5-14); ASPARTATE AMINO TRANSFERASE 22 U/L (5-34); BILIRUBIN,TOTAL 0.8 MG/DL (0.1-1.0); BLOOD UREA NITROGEN 17 MG/DL (7-18); BUN/CREATININE RATIO 20; CALCIUM 9.1 MG/DL (8.5-10.1); CARBON DIOXIDE 20 MMOL/L (21-32); CHLORIDE 105 MMOL/L (98-107); CREATININE SERUM 0.84 MG/DL (0.60-1.30); GFR ESTIMATED > 60; GLUCOSE 77 MG/DL (70-105); MAGNESIUM 2.1 MG/DL (1.8-2.4); POTASSIUM 3.9 MMOL/L (3.6-5.0); SODIUM 138 MMOL/L (135-145); TOTAL PROTEIN 7.3 G/DL (6.4-8.2)
[2016-11-25 20:19] LABS: MYOGLOBIN SERUM 26.8 NG/ML (10.0-92.0)
[2016-11-25] MEDS ORDERED: ENOXAPARIN 80 MG/0.8 ML (LOVENOX) SYR SC ONE (20:45)
[2016-11-25] MEDS ORDERED: CLOPIDOGREL 300 MG (PLAVIX) TABLET PO ONE (20:45)
[2016-11-25 21:20] VITALS: BP 127/88
[2016-11-25] MEDS ORDERED: CATHETER FLUSH 10 ML SYR IV PRN (21:45)
[2016-11-25] MEDS ORDERED: morphine INJ 4 MG/ML 1 ML (VIAL/SYRINGE) IV PRN (21:45)
[2016-11-25] MEDS ORDERED: NITROGLYCERIN SUBLINGUAL 0.4 MG TAB (NITROSTAT) SL PRN (21:45)
[2016-11-25] MEDS: NS IV 1000 ML 1,000 ML IV SCH (21:50)
[2016-11-25] MEDS: CATHETER FLUSH 10 ML SYR IV SCH (21:50)
[2016-11-25 22:00] VITALS: BP 124/80
[2016-11-25 23:00] VITALS: BP 115/72
[2016-11-26] VITALS (8 sets, daily range): BP systolic 97–128; BP diastolic 64–89
[2016-11-26 04:48] LABS: BASOPHILS % (AUTO) 1 % (0-10); EOSINOPHILS # (AUTO) 0.3 10^3/uL (0.0-0.3); EOSINOPHILS % (AUTO) 6 % (0-10); LYMPHOCYTES # (AUTO) 2.2 X 10^3 (1.0-4.0); LYMPHOCYTES % (AUTO) 38 % (12-44); MEAN CORPUSCULAR HEMOGLOBIN 30 PG (25-34); MEAN CORPUSCULAR HGB CONC 34 G/DL (32-36); MEAN CORPUSCULAR VOLUME 91 FL (80-99); MEAN PLATELET VOLUME 10.8 FL (7.4-10.4); MONOCYTES # (AUTO) 0.6 X 10^3 (0.0-1.0); MONOCYTES % (AUTO) 11 % (0-12); NEUTROPHILS # (AUTO) 2.6 X 10^3 (1.8-7.8); NEUTROPHILS % (AUTO) 45 % (42-75); PLATELET COUNT 380 10^3/uL (130-400); RED BLOOD COUNT 4.31 10^6/uL (4.35-5.85); RED CELL DISTRIBUTION WIDTH 12.6 % (10.0-14.5); WHITE BLOOD COUNT 5.9 10^3/uL (4.3-11.0)
[2016-11-26 05:03] LABS: BAND NEUTROPHILS 0 %; BASOPHILS % (MANUAL) 2 %; EOSINOPHILS % (MANUAL) 5 %; LYMPHOCYTES % (MANUAL) 28 %; NEUTROPHILS % (MANUAL) 53 %
[2016-11-26 05:04] LABS: REACTIVE LYMPHOCYTES 7 %
[2016-11-26 05:11] LABS: ALANINE AMINOTRANSFERASE 18 U/L (0-55); ALBUMIN 3.8 G/DL (3.2-4.5); ANION GAP 10 MMOL/L (5-14); ASPARTATE AMINO TRANSFERASE 19 U/L (5-34); BILIRUBIN,TOTAL 0.6 MG/DL (0.1-1.0); BLOOD UREA NITROGEN 16 MG/DL (7-18); BUN/CREATININE RATIO 21; CALCIUM 8.3 MG/DL (8.5-10.1); CARBON DIOXIDE 22 MMOL/L (21-32); CHLORIDE 107 MMOL/L (98-107); CHOLESTEROL 89 MG/DL (< 200); CREATININE SERUM 0.77 MG/DL (0.60-1.30); DIRECT LDL 47 MG/DL (1-129); GFR ESTIMATED > 60; GLUCOSE 81 MG/DL (70-105); POTASSIUM 3.6 MMOL/L (3.6-5.0); SODIUM 139 MMOL/L (135-145); TOTAL PROTEIN 6.1 G/DL (6.4-8.2); TRIGLYCERIDES 92 MG/DL (<150); VLDL CHOLESTEROL 18 MG/DL (5-40)
[2016-11-26] MEDS: CATHETER FLUSH 10 ML SYR IV SCH ×2 (05:20→13:15)
[2016-11-26] MEDS: NS IV 1000 ML 1,000 ML IV SCH (07:58)
[2016-11-26] MEDS ORDERED: ENOXAPARIN 80 MG/0.8 ML (LOVENOX) SYR SC SCH (08:00)
--- NOTE | 2016-11-26 08:54 | History & Physical-Hospitalist ---
HPI History of Present Illness: HPI/Chief Complaint this is a 46-year-old white male who had a stent placed approximately one month ago for non-ST segment elevation NM. Since discharge he has been compliant with his medications and doing well. Strid afternoon began to have chest discomfort again and also with radiation to his left arm. EKG shows recurrent T -wave inversion in the lateral leads. Troponin is negative overnight. Currently he still has a little bit of discomfort in the nitroglycerin helped last night with the pain Source: patient, family Exam Limitations: no limitations Date Seen 11/26/16 Attending Physician Leisa Rocha MD PCP Ángel Fernandez MD Referring Physician Date of Admission Nov 25, 2016 at 21:01 Home Medications & Allergies Home Medications Reviewed patient Home Medication Reconciliation Form Allergies Allergies Coded Allergies No Known Drug Allergies (Unverified11/04/16) Past Ggijhvb-Eaeahs-Poxuwn Hx Patient Social History Marrital Status: Employed/Student: employed Alcohol Use: Occasionally Uses Recreational Drug Use: No Smoking Status: Never a Smoker Physical Abuse Screen: No Sexual Abuse: No Recent Foreign Travel: No Contact w/other who traveled: No Recent Hopitalizations: Yes (11/04/16-NSTEMI) Recent Infectious Disease Expo: No Seasonal Allergies Seasonal Allergies: Yes Surgeries HX Surgeries: Yes (cyst) Surgeries: Coronary Stent, Vasectomy Respiratory Hx Respiratory Disorders: No Cardiovascular Hx Cardiovascular Disorders: Yes Cardiac Disorders: Coronary Artery Disease, Heart Attack Neurological Hx Neurological Disorders: No Reproductive System Sexually Transmitted Disease: No HIV/AIDS: No Genitourinary Hx Genitourinary Disorders: No Gastrointestinal Hx Gastrointestinal Disorders: No Musculoskeletal Hx Musculoskeletal Disorders: No Endocrine Hx Endocrine Disorders: No HEENT HX ENT Disorders: No Cancer Hx Cancer: No Psychosocial Hx Psychiatric Problems: No Integumentary HX Skin/Integumentary Disorder: No Reviewed Nursing Assessment Reviewed/Agree w Nursing PMH: Yes Family Medical History Significant Family History: No Pertinent Family Hx Family Hx: Cardiovascular disease 19 FATHER Deafness or hearing loss 19 FATHER Gastroenteritis 19 MOTHER Hypercholesterolemia 19 FATHER 19 MOTHER Hypertension 19 FATHER Thyroid disease 19 MOTHER Review of Systems Constitutional: see HPI EENTM: no symptoms reported Respiratory: no symptoms reported Cardiovascular: chest pain Gastrointestinal: no symptoms reported Genitourinary: no symptoms reported Musculoskeletal: no symptoms reported Skin: no symptoms reported Psychiatric/Neurological: No Symptoms Reported Physical Exam Physical Exam Vital Signs Vital Sign - Last 12Hours 11/25/16 19:26 Temp 98.4 Pulse 62 Resp 18 B/P (MAP) 137/65 Capillary Refill : Less Than 3 Seconds General Appearance: No Apparent Distress, WD/WN HEENT: Normal ENT Inspection Neck: Supple Respiratory: Lungs Clear, Normal Breath Sounds, No Accessory Muscle Use, No Respiratory Distress Cardiovascular: Regular Rate, Rhythm, No Gallop, No Murmur Gastrointestinal: No Organomegaly, Non Tender, Soft Rectal: Deferred Extremity: Non Tender, No Calf Tenderness Neurologic/Psychiatric: Alert, Oriented x3, No Motor/Sensory Deficits, Normal Mood/Affect Skin: Normal Color, Warm/Dry Results Results/Procedures Lab Laboratory Tests 11/25/16 19:24 11/26/16 03:51 Assessment/Plan Admission Diagnosis 1. chest pain rule out NM-troponin negative EKG abnormal-consult cardiology for further evaluation 2. Coronary artery disease with recent non-ST segment elevation NM with stent placement Copy Copies To 1: ÁNGEL FERNANDEZ MD Clinical Quality Measures AMI/AHF: ASA po Prior to arrival: Yes DVT/VTE Risk/Contraindication: Risk Factor Score Per Nursin RFS Level Per Nursing on Admit: 1=Low/No VTE PPX LEISA ROCHA MD Nov 26, 2016 08:54
[2016-11-26] MEDS ORDERED: CLOPIDOGREL 75 MG (PLAVIX) TABLET PO SCH (09:00)
[2016-11-26] MEDS ORDERED: ASPIRIN E.C. 325 MG (ECOTRIN) TABLET PO SCH (09:00)
[2016-11-26] MEDS ORDERED: lisINopril 5 MG (PRINIVIL) TABLET PO SCH (09:00)
--- NOTE | 2016-11-26 12:50 | Consultation-Cardiology ---
HPI-Cardiology Cardiology Consultation: Date of Consultation 11/26/16 Date of Admission Attending Physician Leisa Rocha MD Admitting Physician Shemar Fenrandez MD Consulting Physician Sary BARRERA MD HPI: Chief Complaint: chest tightness this is a 46-year-old gentleman who had a recent non-STEMI on 11/04/2016 with a drug-eluting stent placed to the LAD by Dr. Guillermo. He presented with chest discomfort which lasted for 15 minutes. He describes the chest discomfort as chest tightness. There is no significant radiation. There is no exacerbating or relieving factors. The discomfort is not as bad as what he had 20 days ago. He has been compliant with dual antiplatelet therapy. Review of Systems-Cardiology Review of Systems Constitutional: No As described under HPI, No no symptoms reported, No chills, No fever, No lightheadedness, No malaise, No tiredness, No weight loss, No weight gain, No other Eyes: No As described under HPI, No no symptoms reported, No blindness, No blurred vision, No contact lenses, No drainage, No decreased acuity, No foreign body sensation, No glasses, No inflammation, No pain, No photophobia, No previous injury, No shadows, No tunnel vision, No other, No vision change Ears/Nose/Throat: No As described under HPI, No no symptoms reported, No chronic hearing loss, No epistaxis, No ear discharge, No ear pain, No loose teeth, No mouth pain, No mouth swelling, No nasal drainage, No nose pain, No recent hearing loss, No throat pain, No throat swelling, No ulcerations, No other Respiratory: No no symptoms reported, No As described under HPI, No cough, No orthopnea, No shortness of breath, No SOB with excertion, No SOB at rest, No stridor, No wheezing, No other Cardiovascular: chest pain Gastrointestinal: No no symptoms reported, No As described under HPI, No abdomen distended, No abdominal pain, No blood streaked bowels, No constipation , No diarrhea, No difficulty swallowing, No nausea, No poor appetite, No poor fluid intake, No rectal bleeding, No vomiting, No other, No nausea/vomiting/ diarrhea, No stool coloration changes Genitourinary: No no symptoms reported, No As described under HPI, No burning, No dysuria, No discharge, No frequency, No flank pain, No hematuria, No incontinence, No pain, No urgency, No other, No urine frequency changes, No urine coloration changes Musculoskeletal: No no symptoms reported, No As describe under HPI, No back pain, No gout, No joint pain, No joint swelling, No muscle pain, No muscle stiffness, No neck pain, No other Skin: No no symptoms reported, No As described under HPI, No change in color, No change in hair/nails, No dryness, No lesions, No lumps, No rash, No other, No skin related problems, No ulcerations, No rash on exposed areas, No ulcerations on exposed areas Psychiatric/Neurological: No As described under HPI, No anxiety, No depression , No emotional problems, No focal weakness, No headache, No no symptoms reported , No numbness, No other, No pre-existing deficit, No seizure, No syncope, No tingling, No tremors, No weakness All Other Systems Reviewed Negative Unless Noted: Yes [id number]-[id number] Hx Patient Social History Marrital Status: Employed/Student: employed Alcohol Use: Occasionally Uses Recreational Drug Use: No Smoking Status: Never a Smoker Recent Foreign Travel: No Recent Infectious Disease Expo: No Hospitalization with Isolation: Denies Physical Abuse Screen: No Sexual Abuse: No Past Medical History PMH As described under Assessment. Family Medical History Family Medical History: Has fam h/o DM II, but no fam h/o early CAD or SCD Family History: Cardiovascular disease 19 FATHER Deafness or hearing loss 19 FATHER Gastroenteritis 19 MOTHER Hypercholesterolemia 19 FATHER 19 MOTHER Hypertension 19 FATHER Thyroid disease 19 MOTHER Allergies and Home Medications Allergies Coded Allergies: No Known Drug Allergies (Unverified , 11/04/16) Home Medications Aspirin 81 Mg Tab.chew, 81 MG PO DAILY for 90 Days, #90 Ref 3 Prescribed by: ADRYAN GUILLERMO on 11/06/16 1356 Atorvastatin Calcium 20 Mg Tablet, 40 MG PO HS for 90 Days, #90 Ref 3 Prescribed by: ADRYAN GUILLERMO on 11/06/16 1356 Clopidogrel Bisulfate 75 Mg Tablet, 75 MG PO DAILY for 90 Days, #90 Ref 3 Prescribed by: ADRYAN GUILLERMO on 11/06/16 1356 Lisinopril 5 Mg Tablet, 5 MG PO HS for 90 Days, #90 Ref 3 Prescribed by: ADRYAN GUILLERMO on 11/06/16 1356 Metoprolol Succinate 25 Mg Tab.er.24h, 25 MG PO DAILY for 90 Days, #90 Ref 3 Prescribed by: ADRYAN GUILLERMO on 11/06/16 2299 Physical Exam-Cardiology Physical Exam Vital Signs/I&O Vital Sign - Last 12Hours 11/26/16 11/26/16 11/26/16 11/26/16 02:00 03:00 04:00 04:00 Temp 97.0 Pulse 58 Resp 16 B/P (MAP) 118/77 103/64 128/68 Pulse Ox 98 97 97 96 O2 Delivery Room Air Room Air Room Air 11/26/16 11/26/16 11/26/16 11/26/16 04:00 05:00 07:00 07:59 Temp 98.6 Pulse 54 50 Resp 18 B/P (MAP) 119/86 116/81 112/89 Pulse Ox 99 96 O2 Delivery Room Air Room Air Room Air 11/26/16 11/26/16 08:10 12:30 Temp 98.7 Pulse 53 Resp 18 B/P (MAP) 97/65 Pulse Ox 97 O2 Delivery Room Air Room Air Intake and Output 11/26/16 00:00 Intake Total 250 ml Output Total 0 ml Balance 250 ml Capillary Refill : Less Than 3 Seconds Constitutional: No appears stated age, No AAO x 3, No apparent distress, No PERRL, No well-developed, No well-nourished, No other HEENT: No PERRL, No normal ENT inspection, No TMs normal, No pharynx normal, No scleral icterus (R), No scleral icterus (L), No pale conjunctivae (R), No pale conjunctivae (L), No photophobia, No TM abnormal (R), No TM abnormal (L), No pharyngeal erythema, No tonsillar exudate, No other, No discharge, No EOMI, No hearing is well preserved, No hard of hearing, No oral hygience is good, No ulceration, No xanthelasmas are seen Neck: No non-tender, No full range of motion, No supple, No normal inspection, No carotid bruit, No limited range of motion, No lymphadenopathy (R), No lymphadenopathy (L), No tender lateral, No tender midline, No thyromegaly, No other, No carotid pulses are 2 + bilaterally, No with good upstrokes Respiratory: No accessory muscle use, No respiratory distress, No chest tender , No chest expansion is symmetric, No chest is bilaterally symmetric, No lungs clear to percussion, No lungs clear to auscultation, No crackles, No rhonchi, No rales, No stridor, No wheezing, No pleural rub, No other Cardiovascular: No regular rate-rhythm, No irregularly irregular, No extra beats, No parasternal heave is noted, No JVD, No edema, No bradycardia, No tachycardia, No point of maximal impulse, No cardiac thrills are palpable, No S1 and S2, No gallop/S3, No gallop/S4, No diastolic murmur, No systolic murmur, No friction rub, No click, No other Gastrointestinal: No tender, No soft, No round, No distended, No pulsatile mass , No organomegaly, No guarding, No rebound, No tenderness, No hernia, No mass, No audible bowel sounds, No abnormal bowel sounds, No abdominal bruits, No spleenomegaly, No other Rectal: deferred Extremities: No normal range of motion, No non-tender, No normal inspection, No pedal edema, No calf tenderness, No normal capillary refill, No pelvis stable , No calf tenderness, No inflammation, No pedal edema, No slow capillary refill , No swelling, No other, No abrasion, No clubbing, No cyanosis, No ecchymosis, No laceration, No no lower extremity edema bilateral, No significant edema, No tenderness, No wound Neurologic/Psychiatric: No mold stamper II-XII nml as tested, No no motor/sensory deficits, No alert, No normal mood/affect, No oriented x 3, No abnormal cerebellar tests, No abnormal mold stamper II-XII, No abnormal gait, No aphasia, No EOM palsy, No facial droop, No motor weakness, No sensory deficit, No depressed affect, No disoriented x 3, No other, No grossly intact, No power is 5/5 both on sides Skin: No normal color, No warm/dry, No cyanosis, No cool, No diaphoresis, No damp, No ecchymosis, No jaundice, No mottled, No pallor, No rash, No tattoos/ piercings, No ulcerations, No rash on exposed areas, No ulcerations on exposed areas, No other Data Review Labs Laboratory Tests 11/25/16 19:24: White Blood Count 9.4, Red Blood Count 4.43, Hemoglobin 13.6, Hematocrit 40, Mean Corpuscular Volume 90, Mean Corpuscular Hemoglobin 31, Mean Corpuscular Hemoglobin Concent 34, Red Cell Distribution Width 12.5, Platelet Count 401H, Mean Platelet Volume 10.6H, Neutrophils (%) (Auto) 59, Lymphocytes (%) (Auto) 30 , Monocytes (%) (Auto) 7, Eosinophils (%) (Auto) 4, Basophils (%) (Auto) 0, Neutrophils # (Auto) 5.6, Lymphocytes # (Auto) 2.8, Monocytes # (Auto) 0.7, Eosinophils # (Auto) 0.4H, Basophils # (Auto) 0.0, Prothrombin Time 13.4, INR Comment 1.1, Activated Partial Thromboplast Time 32, Sodium Level 138, Potassium Level 3.9, Chloride Level 105, Carbon Dioxide Level 20L, Anion Gap 13 , Blood Urea Nitrogen 17, Creatinine 0.84, Estimat Glomerular Filtration Rate > 60, BUN/Creatinine Ratio 20, Glucose Level 77, Calcium Level 9.1, Magnesium Level 2.1, Total Bilirubin 0.8, Aspartate Amino Transf (AST/SGOT) 22, Alanine Aminotransferase (ALT/SGPT) 22, Alkaline Phosphatase 64, Myoglobin 26.8, Troponin I < 0.30, Total Protein 7.3, Albumin 4.5 11/26/16 01:02: Troponin I < 0.30 11/26/16 03:51: White Blood Count 5.9, Red Blood Count 4.31L, Hemoglobin 13.1L, Hematocrit 39L, Mean Corpuscular Volume 91, Mean Corpuscular Hemoglobin 30, Mean Corpuscular Hemoglobin Concent 34, Red Cell Distribution Width 12.6, Platelet Count 380, Mean Platelet Volume 10.8H, Neutrophils (%) (Auto) 45, Lymphocytes (%) (Auto) 38 , Monocytes (%) (Auto) 11, Eosinophils (%) (Auto) 6, Basophils (%) (Auto) 1, Neutrophils # (Auto) 2.6, Lymphocytes # (Auto) 2.2, Monocytes # (Auto) 0.6, Eosinophils # (Auto) 0.3, Basophils # (Auto) 0.0, Sodium Level 139, Potassium Level 3.6, Chloride Level 107, Carbon Dioxide Level 22, Anion Gap 10, Blood Urea Nitrogen 16, Creatinine 0.77, Estimat Glomerular Filtration Rate > 60, BUN/ Creatinine Ratio 21, Glucose Level 81, Calcium Level 8.3L, Total Bilirubin 0.6, Aspartate Amino Transf (AST/SGOT) 19, Alanine Aminotransferase (ALT/SGPT) 18, Alkaline Phosphatase 56, Myoglobin 22.0, Total Protein 6.1L, Albumin 3.8, Neutrophils % (Manual) 53, Lymphocytes % (Manual) 28, Monocytes % (Manual) 5, Eosinophils % (Manual) 5, Basophils % (Manual) 2, Band Neutrophils 0, Reactive Lymphocytes 7, Clumped Platelets OCCASIONAL, Blood Morphology Comment NORMAL, Triglycerides Level 92, Cholesterol Level 89, LDL Cholesterol Direct 47, VLDL Cholesterol 18, HDL Cholesterol 26L ECG Impression ECG Initial ECG Rhythm: Normal Sinus Comment anterior T-wave inversions; similar to the EKG on discharge. A/P-Cardiology Assessment/Admission Diagnosis chest pain, Recent non-STEMI status post PCI to LAD Plan this is a 46-year-old gentleman who had a recent non-STEMI on 11/04/2016 and received a drug-eluting stent to the mid LAD by Dr. Guillermo. He presents again with mild chest discomfort. Acute coronary syndrome has been ruled out with negative serial troponin. EKG still shows symmetrical T-wave inversions which are no different from an EKG on discharge during the admission for non-STEMI. He will continue on aspirin, Plavix, statin. I have discussed at length with the patient and his spouse. He will be discharged today and I have recommended that a follow-up be made Dr. Guillermo on Monday for possible nuclear stress test or angiography. I've also recommended that he seeks immediate medical attention if he gets worsening chest pain or recurrent chest discomfort. Thank you for your consultation. Please call me if you have any questions. Wisam Barrera MD, FACP, FACC, FSCAI, FHRS, CCDS Interventional Cardiology Cardiac Electrophysiology Vascular Medicine and Endovascular Interventions Clinical Quality Measures AMI/AHF: ASA po Prior to arrival: Yes DVT/VTE Risk/Contraindication: Risk Factor Score Per Nursin RFS Level Per Nursing on Admit: 1=Low/No VTE PPX Sary BARRERA MD Nov 26, 2016 12:50 pm
[2016-11-26] MEDS ORDERED: NITR0.4T SL (13:35)
[2016-11-26] MEDS ORDERED: ATORVASTATIN 40 MG (LIPITOR) TABLET PO SCH (21:00)
== END 2016-11-26 13:27 | disposition home or self-care (01) ==
LOC: EDUNIT# 19:13 → ER 19:15 → ICU 21:01 → UNDOADMOB 21:01 → ICU 21:20 → UNDODISOB 11-26 14:16
PROVIDERS: ADMIT Internal Medicine; ATTEND Internal Medicine
DX: R07.9 Chest pain, unspecified (principal); I21.4 Non-ST elevation (NSTEMI) myocardial infarction; I25.10 Atherosclerotic heart disease of native coronary artery without angina pectoris; Z95.5 Presence of coronary angioplasty implant and graft
CPT/HCPCS: 36415; 71010; 80053; 80061; 83735; 83874; 84484; 85007; 85025; 85027; 85610; 85730; 93005; 93041; 96372; G0378

== ENCOUNTER → 2016-11-29 | Outpatient (CLI) | payer BC ==
[~2016-11-29] MED LIST changes: +CATHETER FLUSH 10 ML SYR IV PRN; +NITR0.4T SL
[2016-11-29 08:11] LABS: ALANINE AMINOTRANSFERASE 48 U/L (0-55); ALBUMIN 4.3 G/DL (3.2-4.5); ANION GAP 10 MMOL/L (5-14); ASPARTATE AMINO TRANSFERASE 49 U/L (5-34); BILIRUBIN,TOTAL 0.6 MG/DL (0.1-1.0); BLOOD UREA NITROGEN 13 MG/DL (7-18); BUN/CREATININE RATIO 14; CARBON DIOXIDE 24 MMOL/L (21-32); CHLORIDE 105 MMOL/L (98-107); CHOLESTEROL 100 MG/DL (< 200); DIRECT LDL 53 MG/DL (1-129); GFR ESTIMATED > 60; GLUCOSE 98 MG/DL (70-105); POTASSIUM 3.9 MMOL/L (3.6-5.0); SODIUM 139 MMOL/L (135-145); TOTAL PROTEIN 6.9 G/DL (6.4-8.2); TRIGLYCERIDES 100 MG/DL (<150); VLDL CHOLESTEROL 20 MG/DL (5-40)
[2016-11-29 09:39] VITALS: BP 140/88
[2016-11-29 09:43] VITALS: BP 144/90
[2016-11-29 09:50] VITALS: BP 149/88
[2016-11-29 09:56] VITALS: BP 162/81
--- NOTE | 2016-11-30 07:53 | STRESS TEST ---
PROCEDURE PHYSICIAN: ADRYAN GUILLERMO DATE OF PROCEDURE: 11/29/2016 RESTING AND POST EXERCISE TECHNETIUM 99M TETROFOSMIN SPECT CT IMAGING: ORDERING PHYSICIAN: Dr. Guillermo PRIMARY PHYSICIAN: Dr. Fernandez CLINICAL DIAGNOSES: 1. Chest discomfort. 2. Coronary artery disease. Baseline images were carried out after injection of 10.81 mCi of technetium 99m tetrofosmin. This was followed by exercise on a treadmill. Moses protocol was employed. Heart rate and blood pressure response to exercise were normal. There was considerable baseline artifact at peak exercise but there did not appear to be significant ST segment deviation with exercise. After the patient had attained more than 85% of maximum predicted heart rate, 31.4 mCi of technetium 99m tetrofosmin were injected and the exercise was continued for another minute. He exercised for a total of 10 minutes and 30 seconds in the Moses protocol. He attained 12.8 METs of workload. He attained 92% of maximum predicted heart rate. Test was stopped on account of fatigue. He did not report chest discomfort. There was no significant arrhythmia. Review of images at rest and following stress, does not indicate any significant perfusion defects consistent with myocardial ischemia or infarction. Gated images show normal global left ventricular systolic function with normal regional wall motion. Left ventricular ejection fraction is calculated to be 52%. Left ventricular end-diastolic volume is 88 mL. TID is absent (1.05). CONCLUSIONS: 1. No evidence of any significant myocardial ischemia or infarction on this study. 2. Normal regional wall motion. 3. Normal global left ventricular systolic function with a calculated ejection fraction of 52%. 4. Normal left ventricular cavity size. Job ID: [id number] Dictated Date: 11/29/2016 13:50:13 Chief Librarian Circulation Department Date: 11/30/2016 07:46:04 / beny
== END ==
LOC: CARD 07:34
PROVIDERS: ATTEND Internal Medicine Cardiovascular Disease
DX: I25.10 Atherosclerotic heart disease of native coronary artery without angina pectoris (principal); I10 Essential (primary) hypertension; E78.4 Other hyperlipidemia; I25.5 Ischemic cardiomyopathy
CPT/HCPCS: 36415; 78452; 80053; 80061; 93017

== ENCOUNTER 2017-03-06 08:40 | Emergency (ER) | payer BC ==
[~2017-03-06] VITALS: Ht 175.3 cm; Wt 77.1 kg
[~2017-03-06 08:40] MED LIST changes: -CATHETER FLUSH 10 ML SYR IV PRN
[2017-03-06] MEDS ORDERED: RX-NITROGLYCERIN 0.4 MG TAB BTL 25'S SL ONE (08:47)
[2017-03-06] MEDS ORDERED: ASPIRIN 81 MG CHEW (CHILDREN'S ASA) ONE (08:47)
[2017-03-06] MEDS ORDERED: lisINopril 10 MG (PRINIVIL) TAB PO ONE (09:00)
[2017-03-06] MEDS ORDERED: ASPIRIN 81 MG CHEW (CHILDREN'S ASA) PO ONE (09:00)
[2017-03-06 09:09] LABS: BASOPHILS % (AUTO) 0 % (0-10); EOSINOPHILS # (AUTO) 0.3 10^3/uL (0.0-0.3); EOSINOPHILS % (AUTO) 4 % (0-10); LYMPHOCYTES # (AUTO) 2.2 X 10^3 (1.0-4.0); LYMPHOCYTES % (AUTO) 33 % (12-44); MEAN CORPUSCULAR HEMOGLOBIN 29 PG (25-34); MEAN CORPUSCULAR HGB CONC 32 G/DL (32-36); MEAN CORPUSCULAR VOLUME 88 FL (80-99); MEAN PLATELET VOLUME 10.6 FL (7.4-10.4); MONOCYTES # (AUTO) 0.6 X 10^3 (0.0-1.0); MONOCYTES % (AUTO) 10 % (0-12); NEUTROPHILS # (AUTO) 3.5 X 10^3 (1.8-7.8); NEUTROPHILS % (AUTO) 53 % (42-75); PLATELET COUNT 299 10^3/uL (130-400); RED BLOOD COUNT 4.69 10^6/uL (4.35-5.85); WHITE BLOOD COUNT 6.6 10^3/uL (4.3-11.0)
[2017-03-06 09:16] LABS: INR 0.9 (0.8-1.4); PROTHROMBIN TIME PATIENT 12.3 SEC (12.2-14.7)
[2017-03-06 09:29] LABS: ANION GAP 7 MMOL/L (5-14); BLOOD UREA NITROGEN 14 MG/DL (7-18); BUN/CREATININE RATIO 18; CARBON DIOXIDE 26 MMOL/L (21-32); CHLORIDE 104 MMOL/L (98-107); SODIUM 137 MMOL/L (135-145)
[2017-03-06 09:30] LABS: ALANINE AMINOTRANSFERASE 21 U/L (0-55); ALBUMIN 4.3 GM/DL (3.2-4.5); ASPARTATE AMINO TRANSFERASE 19 U/L (5-34); BILIRUBIN,TOTAL 0.4 MG/DL (0.1-1.0); CALCIUM 8.8 MG/DL (8.5-10.1); GFR ESTIMATED > 60; GLUCOSE 93 MG/DL (70-105); MAGNESIUM 2.2 MG/DL (1.8-2.4); TOTAL PROTEIN 7.1 GM/DL (6.4-8.2)
[2017-03-06 09:36] LABS: MYOGLOBIN SERUM 28.8 NG/ML (10.0-92.0)
--- NOTE | 2017-03-06 09:42 | ED Chest Pain ---
General Chief Complaint: Chest Pain Stated Complaint: CHEST TIGHTNESS Nursing Triage Note: PT TO ROOM 7 PT CO OF C/P AND TIGHTNESS INTERMITTENTLY SINCE MONDAY, PT RATES DISCOMFORT 4/10. HAS TAKEN NITRO ON MONDAY AT HOME. Nursing Sepsis Screen: No Definite Risk Source: patient Exam Limitations: no limitations History of Present Illness Time seen by provider: 08:49 Initial Comments Here with report of chest tightness that radiates to his left arm. This has been intermittent for the last 3 days. Had an episode starting this morning around 7 a.m. Monday he took a nitroglycerin which essentially resolved his pain. He did have a non-ST elevation [place] in October of this year with coronary stenting to the left anterior descending artery that has complete occlusion. He reports taking his medications as directed. Denies other current factors. States feels a little bit better now. Did take 1 baby aspirin this morning but no nitroglycerin. Timing/Duration: changing over time, intermittent, 2-3 days Severity/Quality: moderate, pressure, tightness Location: central Radiation: arms, shoulders Activities at Onset: none Prior CP/Workup: cardiac cath, heart attack Modifying Factors: worse with exercise, improves with nitroglycerin, improves with rest ASA po SKILLED TRADES TEACHER: Yes NTG SL SKILLED TRADES TEACHER: No Associated Symptoms: No abdominal pain, No back pain, No diaphoresis, No edema , No nausea/vomiting, No shortness of breath, No weakness Allergies and Home Medications Allergies Coded Allergies: No Known Drug Allergies (Unverified , 11/04/16) Home Medications Aspirin 81 Mg Tab.chew, 81 MG PO DAILY for 90 Days, #90 Ref 3 Prescribed by: ADRYAN GUILLERMO on 11/06/16 1356 Atorvastatin Calcium 20 Mg Tablet, 40 MG PO HS for 90 Days, #90 Ref 3 Prescribed by: ADRYAN GUILLERMO on 11/06/16 1356 Clopidogrel Bisulfate 75 Mg Tablet, 75 MG PO DAILY for 90 Days, #90 Ref 3 Prescribed by: ADRYAN GUILLERMO on 11/06/16 1356 Lisinopril 5 Mg Tablet, 5 MG PO HS for 90 Days, #90 Ref 3 Prescribed by: ADRYAN GUILLERMO on 11/06/16 1356 Metoprolol Succinate 25 Mg Tab.er.24h, 25 MG PO DAILY for 90 Days, #90 Ref 3 Prescribed by: ADRYAN GUILLERMO on 11/06/16 1356 Nitroglycerin 0.4 Mg Tab.subl, 0.4 MG SL PRN PRN for CHEST PAIN, #30 Prescribed by: JANET HERBERT on 11/26/16 8925 Review of Systems Constitutional: see HPI, No chills, No diaphoresis, No fever EENTM: No Symptoms Reported Respiratory: No Symptoms Reported Cardiovascular: See HPI, Chest Pain, Denies Edema, Denies Lightheadedness Gastrointestinal: Denies Abdominal Pain, Denies Nausea, Denies Vomiting Genitourinary: No Symptoms Reported Musculoskeletal: no symptoms reported Skin: no symptoms reported Psychiatric/Neurological: No Symptoms Reported All Other Systems Reviewed Negative Unless Noted: Yes Past Kjxopzi-Hnlemz-Rxxmpw Hx Patient Social History Alcohol Use: Denies Use Recreational Drug Use: No Smoking Status: Never a Smoker Recent Foreign Travel: No Contact w/Someone Who Travel: No Recent Infectious Disease Expo: No Recent Hopitalizations: No (11/04/16-NSTEMI) Seasonal Allergies Seasonal Allergies: Yes Surgeries HX Surgeries: Yes (cyst) Surgeries: Coronary Stent, Vasectomy Respiratory Hx Respiratory Disorders: No Cardiovascular Hx Cardiac Disorders: Yes Cardiac Disorders: Coronary Artery Disease, Heart Attack Neurological Hx Neurological Disorders: No Reproductive System Sexually Transmitted Disease: No HIV/AIDS: No Genitourinary Hx Genitourinary Disorders: No Gastrointestinal Hx Gastrointestinal Disorders: No Musculoskeletal Hx Musculoskeletal Disorders: No Endocrine Hx Endocrine Disorders: No HEENT HX ENT Disorders: No Cancer Hx Cancer: No Psychosocial Hx Psychiatric Problems: No Integumentary HX Skin/Integumentary Disorder: No Reviewed Nursing Assessment Reviewed/Agree w Nursing PMH: Yes Family Medical History Significant Family History: No Pertinent Family Hx Family Medial History: Cardiovascular disease 19 FATHER Deafness or hearing loss 19 FATHER Gastroenteritis 19 MOTHER Hypercholesterolemia 19 FATHER 19 MOTHER Hypertension 19 FATHER Thyroid disease 19 MOTHER Physical Exam Vital Signs Vital Sign - Last 12Hours 03/06/17 08:42 Temp 97.9 Pulse 56 Resp 18 B/P (MAP) 132/102 Pulse Ox 99 O2 Delivery Nasal Cannula O2 Flow Rate 2.00 Capillary Refill : Less Than 3 Seconds General Appearance: No Apparent Distress, WD/WN HEENT: PERRL/EOMI, Pharynx Normal Neck: Non Tender, Supple Respiratory: Lungs Clear, Normal Breath Sounds Cardiovascular: Regular Rate, Rhythm, No Murmur Gastrointestinal: Non Tender, Soft Extremity: Normal Range of Motion, Non Tender, No Calf Tenderness Neurologic/Psychiatric: Alert, Oriented x3 Skin: Normal Color, Warm/Dry Progress/Results/Core Measures Results/Orders Lab Results Laboratory Tests Test 03/06/17 08:55 03/06/17 11:37 Range/Units White Blood Count 6.6 4.3-11.0 10^3/uL Red Blood Count 4.69 4.35-5.85 10^6/uL Hemoglobin 13.4 13.3-17.7 G/DL Hematocrit 41 40-54 % Mean Corpuscular Volume 88 80-99 FL Mean Corpuscular Hemoglobin 29 25-34 PG Mean Corpuscular Hemoglobin Concent 32 32-36 G/DL Red Cell Distribution Width 13.0 10.0-14.5 % Platelet Count 299 130-400 10^3/uL Mean Platelet Volume 10.6 H 7.4-10.4 FL Neutrophils (%) (Auto) 53 42-75 % Lymphocytes (%) (Auto) 33 12-44 % Monocytes (%) (Auto) 10 0-12 % Eosinophils (%) (Auto) 4 0-10 % Basophils (%) (Auto) 0 0-10 % Neutrophils # (Auto) 3.5 1.8-7.8 X 10^3 Lymphocytes # (Auto) 2.2 1.0-4.0 X 10^3 Monocytes # (Auto) 0.6 0.0-1.0 X 10^3 Eosinophils # (Auto) 0.3 0.0-0.3 10^3/uL Basophils # (Auto) 0.0 0.0-0.1 10^3/uL Prothrombin Time 12.3 12.2-14.7 SEC INR Comment 0.9 0.8-1.4 Activated Partial Thromboplast Time 31 24-35 SEC D-Dimer < 0.27 0.00-0.49 UG/ML Sodium Level 137 135-145 MMOL/L Potassium Level 4.0 3.6-5.0 MMOL/L Chloride Level 104 98-107 MMOL/L Carbon Dioxide Level 26 21-32 MMOL/L Anion Gap 7 5-14 MMOL/L Blood Urea Nitrogen 14 7-18 MG/DL Creatinine 0.80 0.60-1.30 MG/DL Estimat Glomerular Filtration Rate > 60 BUN/Creatinine Ratio 18 Glucose Level 93 70-105 MG/DL Calcium Level 8.8 8.5-10.1 MG/DL Magnesium Level 2.2 1.8-2.4 MG/DL Total Bilirubin 0.4 0.1-1.0 MG/DL Aspartate Amino Transf (AST/SGOT) 19 5-34 U/L Alanine Aminotransferase (ALT/SGPT) 21 0-55 U/L Alkaline Phosphatase 54 40-136 U/L Myoglobin 28.8 30.6 10.0-92.0 NG/ML Troponin I < 0.30 < 0.30 <0.30 NG/ML B-Type Natriuretic Peptide 24.9 <100.0 PG/ML Total Protein 7.1 6.4-8.2 GM/DL Albumin 4.3 3.2-4.5 GM/DL My Orders Orders - GRACE AREVALO MD Aspirin Chewable Tablet (Baby Aspirin Ch (03/06/17 08:47) Rx-Nitroglycerin Sl Tabs (Rx-Nitrostat S (03/06/17 08:47) Cbc With Automated Diff (03/06/17 08:55) Magnesium (03/06/17 08:55) Chest 1 View, Ap/Pa Only (03/06/17 08:55) Ekg Tracing (03/06/17 08:55) Cardiac Profile 1 (03/06/17 08:55) Comprehensive Metabolic Panel (03/06/17 08:55) Myoglobin Serum (03/06/17 08:55) Protime With Inr (03/06/17 08:55) Partial Thromboplastin Time (03/06/17 08:55) O2 (03/06/17 08:55) Monitor-Rhythm Ecg Trace Only (03/06/17 08:55) Lipid Panel (03/07/17 06:00) Aspirin Chewable Tablet (Baby Aspirin Ch (03/06/17 09:00) Saline Lock/Iv-Start (03/06/17 08:55) BNP (03/06/17 08:55) Fibrin Degradation Products (03/06/17 08:55) Lisinopril Tablet (Zestril Tablet) (03/06/17 09:00) Troponin I (03/06/17 11:20) Myoglobin Serum (03/06/17 11:20) Ekg Tracing (03/06/17 11:20) Medications Given in ED Current Medications Medications Dose Ordered Sig/Gayatri Route Start Time Stop Time Status Last Admin Dose Admin Aspirin 243 mg ONCE ONCE PO 03/06/17 09:00 03/06/17 09:01 DC 03/06/17 08:53 243 MG Lisinopril 10 mg ONCE ONCE PO 03/06/17 09:00 03/06/17 09:01 DC 03/06/17 10:14 10 MG Nitroglycerin 0.4 mg STK-MED ONCE SL 03/06/17 08:47 03/06/17 08:53 DC 03/06/17 09:04 0.4 MG Vital Signs/I&O Vital Sign - Last 12Hours 03/06/17 03/06/17 03/06/17 08:42 08:42 08:42 Temp 97.9 Pulse 56 Resp 18 B/P (MAP) 132/102 Pulse Ox 99 99 O2 Delivery Nasal Cannula Nasal Cannula Nasal Cannula O2 Flow Rate 2.00 2.00 2.00 Blood Pressure Mean: 112 Progress Note : Progress Note Seen and evaluated. IV, labs, EKG and chest x-ray ordered. ASA 243 mg by mouth to complete 4 baby aspirin dosing. Nitroglycerin sublingual 1 using patient's own stock. Monitor patient. Patient pain free essentially throughout ER stay. Repeat troponin and myoglobin as well as EKG ordered. 1220 : Repeat EKG, troponin and myoglobin negative for acute findings. No significant pain currently. He has appointment with Dr. Guillermo on Monday and he will keep that appointment. He did have some concerns about his blood pressure as his systolic is near the 100 range and we will defer further evaluation to Dr. Guillermo on that on Monday. Your chart and Dr. Guillermo. Discharged home with return precautions. Patient and family verbalize understanding instructions and agreement with plan. ECG Initial ECG Impression Date: Mar 06, 2017 Initial ECG Impression Time: 08:46 Initial ECG Rate: 55 Initial ECG Rhythm: Normal Sinus Comment Sinus rhythm with normal axis. No evidence of ST elevation OK. Similar to previous although upright T-wave in the lateral leads now. Interpreted by me. EKG : EKG Time: 11:34 Rate: 50 Rhythm: Normal Sinus ECG Comparisson: Unchanged ECG Impression: Normal Comment Sinus rhythm with normal axis. No evidence of ST elevation OK. Similar to previous done earlier today. Interpreted by me. Departure Impression Impression: Primary Impression: Chest pain Qualified Codes: R07.9 - Chest pain, unspecified Disposition: HOME, SELF-CARE Condition: Improved Departure-Patient Inst. Decision time for Depature: 12:26 Referrals: ÁNGEL CUMMINGS MD (PCP/Family) Primary Care Physician Patient Instructions: Chest Pain (DC) Add. Discharge Instructions: All discharge instructions reviewed with patient and/or family. Voiced understanding. Continue home medications as directed. Keep appointment with Dr. Guillermo on Monday as scheduled. Return for worse pain, fever, vomiting, weakness, breathing problems, sweating, persistent chest pain despite nitroglycerin use or other concerns as needed. Copy Copies To 1: ADRYAN GUILLERMO MD FACP [facility] GRACE AREVALO MD Mar 06, 2017 09:41
--- NOTE | 2017-03-06 09:42 | Diagnostic Imaging Report ---
EXAMINATION: Portable upright radiograph of the chest. INDICATION: Chest pain. FINDINGS: The lungs are clear. The heart size is normal. No effusion or pneumothorax. The mediastinum and david appear unremarkable. IMPRESSION: Unremarkable exam. Dictated by: Dictated on workstation # [id number]
[2017-03-06 12:10] LABS: MYOGLOBIN SERUM 30.6 NG/ML (10.0-92.0); TROPONIN I < 0.30 NG/ML (<0.30)
[2017-03-06 12:31] VITALS: BP 121/105
== END 2017-03-06 12:31 | disposition home or self-care (01) ==
LOC: EDUNIT# 08:40 → ER 08:42
DX: R07.9 Chest pain, unspecified (principal); I25.10 Atherosclerotic heart disease of native coronary artery without angina pectoris; I25.2 Old myocardial infarction; Z95.5 Presence of coronary angioplasty implant and graft; Z98.52 Vasectomy status
CPT/HCPCS: 36415; 71010; 80053; 83735; 83874; 83880; 84484; 85025; 85379; 85610; 85730; 93005; 93041

== ENCOUNTER 2017-03-14 07:18 | Day surgery (SDC) | payer BC ==
[~2017-03-14] VITALS: Ht 175.3 cm; Wt 77.2 kg
[2017-03-14] VITALS (8 sets, daily range): BP systolic 95–140; BP diastolic 70–96
[~2017-03-14 07:18] MED LIST changes: -METO-270 PO; +METO-387 PO; +NS IV 1000 ML 1,000 ML ONE
[2017-03-14] MEDS ORDERED: HEParin (CATH LAB) 2,000 ML IV ONE (07:19)
[2017-03-14 07:52] LABS: MEAN PLATELET VOLUME 10.6 FL (7.4-10.4); RED BLOOD COUNT 4.87 10^6/uL (4.35-5.85); RED CELL DISTRIBUTION WIDTH 13.4 % (10.0-14.5); WHITE BLOOD COUNT 8.6 10^3/uL (4.3-11.0)
[2017-03-14] MEDS ORDERED: NS IV 1000 ML 1,000 ML IV SCH ×2 (08:00→09:46)
[2017-03-14 08:11] LABS: ANION GAP 8 MMOL/L (5-14); BLOOD UREA NITROGEN 19 MG/DL (7-18); BUN/CREATININE RATIO 19; CARBON DIOXIDE 29 MMOL/L (21-32); CHLORIDE 103 MMOL/L (98-107); CREATININE SERUM 0.98 MG/DL (0.60-1.30); POTASSIUM 3.9 MMOL/L (3.6-5.0); SODIUM 140 MMOL/L (135-145)
[2017-03-14 08:12] LABS: ALANINE AMINOTRANSFERASE 22 U/L (0-55); ALBUMIN 4.5 GM/DL (3.2-4.5); ASPARTATE AMINO TRANSFERASE 19 U/L (5-34); BILIRUBIN,TOTAL 0.7 MG/DL (0.1-1.0); CALCIUM 9.5 MG/DL (8.5-10.1); CHOLESTEROL 118 MG/DL (< 200); DIRECT LDL 65 MG/DL (1-129); GFR ESTIMATED > 60; GLUCOSE 98 MG/DL (70-105); TOTAL PROTEIN 7.7 GM/DL (6.4-8.2); TRIGLYCERIDES 88 MG/DL (<150); VLDL CHOLESTEROL 18 MG/DL (5-40)
[2017-03-14] MEDS ORDERED: fentaNYL INJECTION 100 MCG/2 ML AMP ONE (08:36)
[2017-03-14] MEDS ORDERED: diphenhydrAMINE 50 MG/ML INJ (BENADRYL) ONE (08:36)
[2017-03-14] MEDS ORDERED: MIDAZOLAM 5 MG/5 ML (VERSED) VIAL ONE (08:36)
[2017-03-14] MEDS ORDERED: ADENOSINE 3 MG/1 ML (ADENOSCAN) 30ML VIAL IV ONE (09:08)
[2017-03-14] MEDS ORDERED: HEParin 1000 UNIT/ML (10ML VIAL) FOR BOLUS ONE (09:08)
--- NOTE | 2017-03-14 09:46 | Cardiac Procedure Note-CS/ASA ---
Pre-Procedure Note Pre-Op Procedure Note H&P Reviewed The H&P was reviewed, patient examined and no changes noted. Date H&P Reviewed: Mar 14, 2017 Time H&P Reviewed: 08:45 Conscious Sedation Pre-Proced Time Reviewed: 08:45 ASA Class: 3 Airway Mallampati Classification: (peoria appropriate class) I. II. III, IV Lungs Heart ASA score ASA 1: a normal healthy patient ASA 2: a patient with a mild systemic disease (mid diabetes, controlled hypertension, obesity ASA 3: a patient with a severe systemic disease that limits activity (angina , COPD, prior Myocardial infarction) ASA 4: a patient with an incapacitating disease that is a constant threat to life (CHF, renal failure) ASA 5: a moribund patient not expected to survive 24 hrs. (ruptured aneurysm) ASA 6: a declared brain patient whose organs are being harvested. For emergent operations, add the letter E after the classification Grade 2 Sedation Plan: Analgesia, Amnesia, Plan communicated to team members, Discussed options with patient/fam, Discussed risks with patient/fam Note The patient is an appropriate candidate to undergo the planned procedure, sedation, and anesthesia. The patient immediately re-assessed prior to indication. ADRYAN RINCON MD FACP [facility] Mar 14, 2017 09:46
--- NOTE | 2017-03-14 09:48 | Discharge Inst-Post CATH ---
Discharge Inst-CATH Post Cardiac Cath D/C Inst Follow Up/Plan F/u with Dr Guillermo in 2-3 weeks CARDIAC CATH DISCHARGE INSTRUCTIONS *Hold Metformin for 48 hours post heart cath. ACTIVITY * Go Home directly and rest. * Limit activity of the leg (or wrist if it was used) for 7 days including aerobics, swimming, jogging, bicycling, etc. * Restrict stair-climbing for 7 days if possible, if not, climb up with your non -cath leg, then bring together on the same step. * Avoid lifting, pushing, pulling or excessive movement of the affected extremity for 7 days. * Customary sexual activity may be resumed after 2 days-use caution not to use a position that strains or causes pain to the affected extremity. * No driving for 24 hours. * NO SMOKING. * Avoid straining for bowel movements for 7 days. * Gentle walking on level ground is allowed. * Returning to work will depend on the type of procedure and the results. Your doctor will discuss this with you. CALL YOUR DOCTOR FOR ANY OF THE FOLLOWING: *If bleeding from the puncture site occurs- Apply gentle pressure to site with clean cloth and call your doctor or EMS. * If a knot or lump forms under the skin, increases in size, or causes pain. * If bruising appears to be worsening or moving further down your leg instead of disappearing. * Temperature above 101 F. CARE OF YOUR GROIN INCISION; * Bruising or purple discoloration of the skin near the puncture site is common. * You may shower only, no bathtub bathing for 5 days. Be careful to avoid slipping as your leg may feel stiff. * If a closure device was used on your femoral artery, please see the attached guide regarding care of the device and your leg. * REMOVE the dressing from your groin the next day after your procedure in the shower. CARE OF YOUR WRIST INCISION; * Bruising or purple discoloration of the skin near the puncture site is common. * You may shower. * DO NOT submerge wrist. * Remove dressing in 24 hours. ADRYAN GUILLERMO MD [facility] Mar 14, 2017 09:48
--- NOTE | 2017-03-14 09:49 | Discharge Inst-Cardiology ---
Discharge Inst-Cardiac Discharge Medications Continued Medications: Aspirin (Aspirin) 81 Mg Tab.chew 81 MG PO DAILY for 90 Days, #90 TAB 3 Refills Atorvastatin Calcium (Atorvastatin Calcium) 20 Mg Tablet 40 MG PO HS for 90 Days, #90 TAB 3 Refills Clopidogrel Bisulfate (Clopidogrel) 75 Mg Tablet 75 MG PO DAILY for 90 Days, #90 TAB 3 Refills Lisinopril (Lisinopril) 5 Mg Tablet 5 MG PO HS for 90 Days, #90 TAB 3 Refills Metoprolol Succinate (Metoprolol Succinate) 25 Mg Tab.er.24h 25 MG PO DAILY for 90 Days, #90 TAB 3 Refills Nitroglycerin (Nitrostat) 0.4 Mg Tab.subl 0.4 MG SL PRN PRN for CHEST PAIN, #30 TAB ADRYAN RINCON MD FACP [facility] Mar 14, 2017 09:49
[2017-03-14] MEDS ORDERED: PATIENT MAY USE OWN MEDS, ALL PO SCH (10:00)
--- NOTE | 2017-03-14 15:07 | CARDIAC CATHETERIZATION ---
DATE OF SERVICE: 03/14/2017 The patient is a 47-year-old gentleman who is known to have coronary artery disease and who underwent stenting of the mid left anterior descending artery on 11/04/2016 with Alpine 2.75 x 28 mm stent after he had presented with acute coronary syndrome. Since then, he has continued to have intermittent chest discomfort. His chest discomfort has become worse and exertional, suggestive of recurrent angina pectoris. Cardiac catheterization was carried out after having obtained an informed consent. PROCEDURE: He was brought to the cardiac catheterization laboratory in a fasting state. Right groin was prepared and draped in the usual sterile fashion. Lidocaine 1% was used for local anesthesia. Modified Seldinger technique was used to advance a 5-Yemeni sheath into the right femoral artery. A 5-Yemeni JL4 catheter was used for right coronary angiography. A 5-Yemeni JR4 catheter was used for right coronary angiography. A 5-Yemeni pigtail catheter was used for left heart catheterization and left ventricular angiography. FRACTIONAL FLOW RESERVE MEASUREMENT IN THE LEFT ANTERIOR DESCENDING ARTERY: Following completion of the diagnostic coronary and left ventricular angiography, we proceeded with fractional flow reserve measurement in the left anterior descending artery where the patient has approximately 30% stenosis proximal to the proximal edge of the stent and a 30% stenosis distal to the distal edge of the stent. We exchanged the sheath over a wire for a 6 Yemeni sheath. We gave 5000 units of intravenous heparin. We advanced a pressure wire across both lesions in the left anterior descending artery and the tip was placed in the distal vessel. We gave adenosine 140 mcg per kilogram per minute for 2 minutes. Fractional flow reserve was 0.85, indicating hemodynamic nonsignificance of these angiographically mild but tandem lesions. HEMODYNAMICS: Left ventricular end-diastolic pressure following coronary angiography was 14 mmHg. There was no significant pressure gradient on pullback across the aortic valve. Ascending aortic pressure was 137/92 with a mean of 89 mmHg. LEFT VENTRICULAR ANGIOGRAPHY: Left ventricular angiography was carried out in the right anterior oblique projection. Global left ventricular systolic function is normal. No distinct regional wall motion abnormalities are seen. Left ventricular ejection fraction is 55%. There does not appear to be significant mitral regurgitation. CORONARY ANGIOGRAPHY: Mild coronary calcification is present. Left main coronary artery does not exhibit significant disease. Left anterior descending artery has a widely patent stent in its mid portion which is known to be Alpine Xience 2.75 x 28 mm placed on 11/04/2016 for acute coronary syndrome. The vessel proximal and distal to the stent has approximately 30% stenoses. Fractional flow reserve across the combination of these stenoses is 0.85 indicating hemodynamic nonsignificance. The left circumflex artery is small and nondominant and does not exhibit significant disease. Right coronary artery is dominant and has mild plaques. CONCLUSIONS: 1. Coronary artery disease, mild. There is a widely patent stent in the mid left anterior descending artery known to be Alpine Xience 2.75 x 28 mm placed on 11/04/2016 for acute coronary syndrome. This is widely patent. 30% stenoses proximal and distal to the standard area are hemodynamically insignificant (based on fractional flow reserve measurement). 2. Normal global left ventricular systolic function with ejection fraction approximately 55%. 3. No regional wall motion abnormality. 4. No significant mitral regurgitation. DISCUSSION AND RECOMMENDATIONS: Based on results of the study, it appears appropriate to continue a conservative approach. Risk factor modification has been reviewed. Outpatient followup is advised. Job ID: [id number] DocumentID: [id number] Dictated Date: 03/14/2017 09:42:15 Foreign Food Cook Specialty Date: 03/14/2017 15:06:56 Dictated By: ADRYAN RINCON MD, MA, FACP, FACC,
== END 2017-03-14 13:25 | disposition home or self-care (01) ==
LOC: CATH 07:18 → SURG 09:56 → ENPENDDIS 13:15 → CATH 13:25
PROVIDERS: ATTEND Nurse Practitioner Family
DX: R07.89 Other chest pain (principal); I25.10 Atherosclerotic heart disease of native coronary artery without angina pectoris; I25.84 Coronary atherosclerosis due to calcified coronary lesion; I25.2 Old myocardial infarction; I10 Essential (primary) hypertension; E78.5 Hyperlipidemia, unspecified; Z79.899 Other long term (current) drug therapy; Z95.1 Presence of aortocoronary bypass graft; Z82.49 Family history of ischemic heart disease and other diseases of the circulatory system
CPT/HCPCS: 36415; 80053; 80061; 85027; 85610; 85730; 87081; 93458; 93571

== ENCOUNTER → 2018-06-12 | Outpatient (CLI) | payer BC ==
[~2018-06-12] MED LIST changes: +CATHETER FLUSH 10 ML SYR IV PRN; -NS IV 1000 ML 1,000 ML ONE
[2018-06-12 13:30] VITALS: BP 138/93
--- NOTE | 2018-06-12 20:34 | STRESS TEST ---
DATE OF SERVICE: 06/12/2018 RESTING AND POST EXERCISE TECHNETIUM-99M TETROFOSMIN SPECT CT IMAGING ORDERING PHYSICIAN: Grazyna Thomas APRN PRIMARY PHYSICIAN: Dr. Fernandez. CLINICAL DIAGNOSES: Chest discomfort, coronary artery disease. Baseline images were carried out after injection of 10.27 mCi of technetium-99m Tetrofosmin. Subsequently, exercise was carried out on a treadmill. Moses protocol was employed. Heart rate and blood pressure responses to exercise were normal. The patient received 27.7 mCi of technetium-99m Tetrofosmin at peak exercise and the exercise was continued for another minute. At peak exercise, there is approximately [address] segment depression. No significant arrhythmia was seen. Test was stopped on account of fatigue. The patient attained 93% of maximum predicted heart rate and 12.1 METS of workload. The stress injection of technetium-99m Tetrofosmin was made after the patient had attained 85% of maximum predicted heart rate. Review of images at rest and following stress does not indicate any significant perfusion defects consistent with myocardial ischemia or infarction. Gated images show normal global left ventricular systolic function and normal regional wall motion. Left ventricular ejection fraction is calculated to be 53%. Left ventricular end diastolic volume is 78 mL. TID is absent (0.94). CONCLUSIONS: 1. No evidence of any significant myocardial ischemia or infarction on this study. 2. Normal regional wall motion. 3. Normal global left ventricular systolic function with a calculated ejection fraction of 53%. Job ID: [id number] DocumentID: [id number] Dictated Date: 06/12/2018 18:06:08 Erp Business Analyst Date: 06/12/2018 20:33:10 Dictated By: ADRYAN RINCON MD, MA, FACP, FACC,
== END ==
LOC: CARD 11:18
PROVIDERS: ATTEND Nurse Practitioner Family
DX: I25.10 Atherosclerotic heart disease of native coronary artery without angina pectoris (principal); R07.9 Chest pain, unspecified; I77.89 Other specified disorders of arteries and arterioles; E78.5 Hyperlipidemia, unspecified
CPT/HCPCS: 78452; 93017

== ENCOUNTER → 2019-09-23 | Outpatient (CLI) | payer BC ==
[~2019-09-23] MED LIST changes: -CATHETER FLUSH 10 ML SYR IV PRN; -METO-387 PO; +MTP25TSR PO
== END ==
LOC: CARD 14:36
PROVIDERS: ATTEND Internal Medicine Cardiovascular Disease
DX: I25.10 Atherosclerotic heart disease of native coronary artery without angina pectoris (principal); R00.2 Palpitations; R07.9 Chest pain, unspecified; I10 Essential (primary) hypertension; E78.49 Other hyperlipidemia
CPT/HCPCS: 93306

== ENCOUNTER → 2019-10-01 | Outpatient (CLI) | payer BC ==
[~2019-10-01] VITALS: Ht 175 cm; Wt 81.0 kg
[~2019-10-01] MED LIST changes: +CATHETER FLUSH 10 ML SYR IV PRN
[2019-10-01 09:09] VITALS: BP 128/89
[2019-10-01 09:33] VITALS: BP 133/88
--- NOTE | 2019-10-02 11:58 | STRESS TEST ---
DATE OF SERVICE: 10/01/2019 RESTING AND POST EXERCISE TECHNETIUM-99M TETROFOSMIN SPECT CT IMAGING Baseline images were carried out after injection of 10.64 mCi of technetium-99m Tetrofosmin. Subsequently, exercise was carried out on a treadmill. After the patient had attained 85% of maximum predicted heart rate and had indicated that he would not be able to go for more than another minute, 32.5 mCi of technetium-99m Tetrofosmin were injected and the exercise was continued for another minute. There is considerable baseline artifact at peak exercise. In the immediate post-exercise phase, there is approximately [address] segment depression. No significant arrhythmia is seen. The patient tolerated the procedure well. He attained 95% of maximum predicted heart rate and 12.1 METS of workload. Review of images at rest and following stress does not indicate any significant perfusion defects consistent with myocardial ischemia or infarction. Gated images show normal global left ventricular systolic function with normal regional wall motion. Left ventricular ejection fraction is calculated to be 63%. Left ventricular end diastolic volume is 52 mL. TID is absent (0.93). CONCLUSIONS: 1. No evidence of any significant myocardial ischemia or infarction on this study. 2. Normal regional wall motion. 3. Normal global left ventricular systolic function with a calculated ejection fraction of 63%. Job ID: [id number] DocumentID: [id number] Dictated Date: 10/02/2019 09:24:50 Heel Room Supervisor Date: 10/02/2019 11:56:41 Dictated By: ADRYAN RINCON MD, MA, FACP, FACC,
== END ==
LOC: CARD 07:19
PROVIDERS: ATTEND Internal Medicine Cardiovascular Disease
DX: I25.10 Atherosclerotic heart disease of native coronary artery without angina pectoris (principal); R07.9 Chest pain, unspecified; R00.2 Palpitations; I10 Essential (primary) hypertension; E78.2 Mixed hyperlipidemia
CPT/HCPCS: 78452; 93017; 93225; 93226

== ENCOUNTER 2020-01-28 09:12 | Day surgery (SDC) | payer BC ==
[2020-01-28] VITALS (9 sets, daily range): BP systolic 114–146; BP diastolic 81–96
[~2020-01-28] VITALS: Ht 175 cm; Wt 82.0 kg
[~2020-01-28 09:12] MED LIST changes: -CATHETER FLUSH 10 ML SYR IV PRN
[2020-01-28] MEDS ORDERED: NS IV 1000 ML 1,000 ML IV SCH ×2 (09:21→13:28)
[2020-01-28] MEDS ORDERED: NS IV 1000 ML 1,000 ML ONE (09:22)
[2020-01-28] MEDS ORDERED: HEParin (CATH LAB) 2,000 ML IV ONE (09:22)
[2020-01-28] MEDS ORDERED: LIDOCAINE 1% INJ 20 ML 20 ML VIAL ONE (09:22)
[2020-01-28 09:44] LABS: HEMOGLOBIN 14.8 G/DL (13.3-17.7); MEAN PLATELET VOLUME 10.5 FL (7.4-10.4); RED CELL DISTRIBUTION WIDTH 13.2 % (10.0-14.5); WHITE BLOOD COUNT 7.5 10^3/uL (4.3-11.0)
[2020-01-28] MEDS ORDERED: LISI-552 PO (09:47)
[2020-01-28] MEDS ORDERED: PANT40SU PO (09:47)
[2020-01-28 10:10] LABS: ALANINE AMINOTRANSFERASE 29 U/L (0-55); ALBUMIN 4.7 GM/DL (3.2-4.5); ALKALINE PHOSPHATASE 53 U/L (40-136); BILIRUBIN,TOTAL 0.6 MG/DL (0.1-1.0); BUN/CREATININE RATIO 20; CALCIUM 9.6 MG/DL (8.5-10.1); CARBON DIOXIDE 26 MMOL/L (21-32); CHLORIDE 104 MMOL/L (98-107); CHOLESTEROL 133 MG/DL (< 200); CREATININE SERUM 0.92 MG/DL (0.60-1.30); GFR ESTIMATED > 60; GLUCOSE 92 MG/DL (70-105); HDL CHOLESTEROL 34 MG/DL (40-60); SODIUM 139 MMOL/L (135-145); TOTAL PROTEIN 7.8 GM/DL (6.4-8.2); TRIGLYCERIDES 124 MG/DL (<150); VLDL CHOLESTEROL 25 MG/DL (5-40)
[2020-01-28 10:16] LABS: PROTHROMBIN TIME PATIENT 13.1 SEC (12.2-14.7)
--- OUTSIDE RECORDS SUMMARY | 2020-01-28 10:26 | XMS REPORT ---
Author Author [employer] [facility] [employer] [facility] [place] [employer] [facility] Address [address] [address] Care Team Providers Care State Federal Relations Deputy Director Name Role Phone ÁNGEL CUMMINGS Unavailable ADRYAN GUILLERMO Unavailable Unavailable MCKENZIE GIFFORD FAC, ADRYAN FACP CCDS Unavailable Unavailkevin GUILLERMO MD FAC, ADRYAN FACP CCDS Unavailable Unavailkevin FARRIS MD, CAMILO Okeefe Unavailable Unavailable KALEIGH GIFFORD, CAMILO [place] Unavailable Unavailable MICKEY GIFFORD, GRACE Grant Unavailable Unavailable ADRYAN GUILLERMO Unavailable Unavailable MCKENZIE, ALI Unavailable Unavailable ANDERSON GIFFORD, PHILLY Michel Unavailable Unavailable BROKOB, JEFFREY Unavailable Unavailable BROKOB, JEFFREY Unavailable Unavailable BROKOB, JEFFREY Unavailable Unavailable CAROLYN, TOÑO Unavailable Unavailable CAROLYN, TOÑO Unavailable Unavailable CAROLYN, TOÑO Unavailable Unavailable DAMIÁN, DEISI Unavailable Unavailable DAMIÁN FUR DRUMMER, DEISI Unavailable Unavailable DAMIÁN FUR DRUMMER, DEISI Unavailable Unavailable ADRYAN GARCIA MA Unavailable Unavailable Unavailable Unavailable Unavailable Unavailable Unavailable Unavailable Unavailable Unavailable Unavailable Unavailable Allergies Normalized Allergy Reported Date of Reaction(s) Care Provider Facility Allergy Type classification allergen Allergy Onset DA (20 Unclassified No Known Drug 11-04-2016 - no information ADRYAN GUILLERMO , Not Available sources.) Allergies [facility] ([id number]) no information Unclassified NO KNOWN DRUG UNKNOWN, NO [facility] (10 sources.) ALLERGIES KNOWN DRUG [facility] ALLERGIES [facility] (94454) Medications No Information Problems Active Problems Problem Normalized Date Last Normalized Normalized Provider Fa cility Classification Problem(s) Recorded Problem Problem Sta tus Duration Other upper Acute upper Episodic Active TOÑO CAROLYN [facility] respiratory respiratory [facility] infections (8 infection, [place] sources.) unspecified [facility] ([address]995) Translations: [ ACUTE UPPER RESPIRATORY INFECTIONS OF OTHER MULTIPLE SITES, ACUTE PHARYNGITIS, UNSPECIFIED, ACUTE PHARYNGITIS] Coronary Atheroscleroti Chronic Active ADRYAN GUILLERMO , Not Available atherosclerosi c heart MD YUNG (97513) s and other disease of heart disease [place] (22 sources.) coronary artery without angina pectoris Translations: [ CORONARY ATHEROSCLEROSI S OF [place] CORONARY ARTERY, ISCHEMIC CARDIOMYOPATHY ] Coronary Atheroscleroti no information Active CAMILO No t Available atherosclerosi c heart MD KALEIGH (13541) s and other disease of heart disease [place] (20 sources.) coronary artery without angina pectoris Translations: [ PRESENCE OF CORONARY ANGIOPLASTY IMPLANT, OLD MYOCARDIAL INFARCTION, CORONARY ATHEROSCLEROSI S DUE TO CALCIFIE, PRESENCE OF AORTOCORONARY BYPASS GRAFT] Essential Essential Chronic Active ALI MCKENZIE , Not Avail able hypertension (primary) MD YUNG (23688) (14 sources.) hypertension Fever of Fever, Episodic Active [facility] unknown origin unspecified [facility] (4 sources.) Translations: [place] [ FEVER, [facility] (62112) UNSPECIFIED] Disorders of Other Chronic Active ALI MCKENZIE , Not Rebeka ilable lipid hyperlipidemia MD YUNG (00710) metabolism (20 Translations: sources.) [ OTHER AND UNSPECIFIED HYPERLIPIDEMIA , HYPERLIPIDEMIA , UNSPECIFIED, MIXED HYPERLIPIDEMIA ] Unclassified Other Chronic Active [facility] Via (2 sources.) hyperlipidemia [facility] (03707) Other Other Chronic Active SHAHZAD BAIMA Not Avail able circulatory specified (04273) disease (3 disorders of sources.) arteries and arterioles Cardiac Palpitations Episodic Active ALI [facility] Vi a dysrhythmias [facility] (4 sources.) [facility] (23809) Malaise and Weakness Episodic Active [facility] l fatigue (8 Translations: [facility] sources.) [ OTHER [place] MALAISE [facility] (07481) FATIGUE ] Past or Other Problems Problem Normalized Date Last Normalized Normalized Provider Fa cility Classification Problem(s) Recorded Problem Problem Sta tus Duration Residual Family history Episodic Completed ALI MCKENZIE , Not Available codes; of ischemic MD YUNG (69505) unclassified heart disease (7 sources.) and other diseases of the circulatory system Other Other long Episodic Completed SHAHZAD BAIMA Not Rebeka ilable aftercare (1 term (current) (12775) source.) drug therapy Contraceptive Vasectomy Episodic Completed GRACE Not Avai labwood and terrence AREVALO MD (04106) procreative management (3 sources.) Procedures Procedure Normalized Procedure Procedure Result Performer Facility Date DILATION OF 1 COR ART no information no name Not Avai lable (31791) WITH DRUG-ELUT INT FLUOROSCOPY OF LEFT no information no name Not Availa ble (77518) HEART USING LOW OSMO FLUOROSCOPY OF MULT no information no name Not Availa ble (17301) COR ART USING L OSM MEASURE OF CARDIAC no information no name Not Availab le (45900) SAMPL PRESSURE, L H Immunizations No Information Results Test Name Value Interpretation Reference Range Date Time Fa cility (Normalized) (Normalized) (Medline Reference) laboratory on 2020-01-28 Albumin 4.7 g/dL (H) 3.4 - 5.4 g/dL 01-28-2020 PENDING LOCATION [Mass/Vol] 05:32-0400 [facility] (35281) ALP [Catalytic 53 U/L (NEG) 44 - 147 U/L 01-28-2020 PEND ING LOCATION activity/Vol] 05:32-0400 [facility] (74754) ALT [Catalytic 29 U/L (NEG) 4 - 40 U/L 01-28-2020 PENDIN G LOCATION activity/Vol] 05:32-0400 [facility] (52125) Anion gap 9 mmol/L (NEG) 3 - 11 mmol/L 01-28-2020 PENDING LOCATION [Moles/Vol] 05:32-0400 [facility] (84724) aPTT Coag (PPP) 30 s (NEG) 25 - 35 s 01-28-2020 PENDIN G LOCATION [Time] 05:32-0400 [facility] (17017) AST [Catalytic 27 U/L (NEG) 10 - 34 U/L 01-28-2020 PENDI NG LOCATION activity/Vol] 05:32-0400 [facility] (64036) Bilirubin 0.6 mg/dL (NEG) 0.1 - 1.2 mg/dL 01-28-2020 PENDIN G LOCATION [Mass/Vol] 05:32-0400 [facility] (69407) Calcium 9.6 mg/dL (NEG) 8.5 - 10.2 mg/dL 01-28-2020 PENDI NG LOCATION [Mass/Vol] 05:32-0400 [facility] (23228) Chloride 104 mmol/L (NEG) 95 - 106 mmol/L 01-28-2020 PENDI NG LOCATION [Moles/Vol] 05:32-0400 [facility] (89005) Cholesterol 133 mg/dL (no code) 180 - 200 mg/dL 01-28-2020 PEND ING LOCATION [Mass/Vol] 05:32-0400 [facility] (07610) Cholesterol in 34 mg/dL (L) 01-28-2020 PENDING LOC ATION HDL [Mass/Vol] 05:32-0400 [facility] (38873) Cholesterol in 84 mg/dL (NEG) 0 - 100 mg/dL 01-28-2020 PEN DING LOCATION LDL [Mass/Vol] 05:32-0400 [facility] (07061) Cholesterol in 25 mg/dL (NEG) 01-28-2020 PENDING LOC ATION VLDL [Mass/Vol] 05:32-0400 [facility] (95568) CO2 [Moles/Vol] 26 mmol/L (NEG) 23 - 29 mmol/L 01-28-2020 P ENDING LOCATION 05:32-0400 [facility] (43310) Creatinine 0.92 mg/dL (NEG) 01-28-2020 PENDING LOCATI ON [Mass/Vol] 05:32-0400 [facility] (71219) Creatinine and > (no code) 01-28-2020 PENDING LOC ATION Glomerular 05:32-0400 [facility] (05766) filtration rate.predicted panel - Serum, Plasma or Blood Erythrocyte 13.2 % (NEG) 11.6 - 14.6 % 01-28-2020 PENDIN G LOCATION distribution 05:32-0400 [facility] (65884) width (RBC) [Ratio] Glucose 92 mg/dL (NEG) 60 - 125 mg/dL 01-28-2020 PENDING LOCATION [Mass/Vol] 05:32-0400 [facility] (78246) Hematocrit (Bld) 43 % (NEG) 36.1 - 50.3 % 01-28-2020 P ENDING LOCATION [Volume 05:32-0400 [facility] (96480) fraction] Hemoglobin (Bld) 14.8 g/dL (NEG) 12.1 - 17.2 g/dL 01-28-2020 PENDING LOCATION [Mass/Vol] 05:32-0400 [facility] (43412) INR Coag 1.0 (NEG) 01-28-2020 PENDING LOCATI ON (Platelet poor 05:32-0400 [facility] (69146) plasma or blood) [Relative time] MCH (RBC) 31 pg (NEG) 27 - 31 pg 01-28-2020 PENDING LOC ATION [Entitic mass] 05:32-0400 [facility] (34189) MCHC (RBC) 34 g/dL (NEG) 32 - 36 g/dL 01-28-2020 PENDING LOCATION [Mass/Vol] 05:32-0400 [facility] (93457) MCV (RBC) 91 (NEG) 01-28-2020 PENDING LOCATI ON [Entitic vol] 05:32-0400 [facility] (35230) Platelet mean 10.5 (H) 01-28-2020 PENDING LOCA TION volume (Bld) 05:32-0400 [facility] (18393) [Entitic vol] Platelets (Bld) 328 10*3/uL (NEG) 150 - 450 01-28-2020 PEND ING LOCATION [#/Vol] 10*3/uL 05:32-0400 [facility] (21299) Potassium 4.0 mmol/L (NEG) 3.7 - 5.2 mmol/L 01-28-2020 PEND ING LOCATION [Moles/Vol] 05:32-0400 [facility] (23190) Protein 7.8 g/dL (NEG) 6.4 - 8.3 g/dL 01-28-2020 PENDING LOCATION [Mass/Vol] 05:32-0400 [facility] (95486) PT Coag (PPP) 13.1 s (NEG) 9.4 - 12.5 s 01-28-2020 PENDI NG LOCATION [Time] 05:32-0400 [facility] (50706) RBC (Bld) 4.77 10*6/uL (NEG) 4.2 - 6.1 01-28-2020 PENDING L OCATION [#/Vol] 10*6/uL 05:32-0400 [facility] (06269) Sodium 139 mmol/L (NEG) 135 - 145 mmol/L 01-28-2020 PEND ING LOCATION [Moles/Vol] 05:32-0400 [facility] (95737) Triglyceride 124 mg/dL (NEG) 0 - 150 mg/dL 01-28-2020 PENDI NG LOCATION [Mass/Vol] 05:32-0400 [facility] (21313) Urea nitrogen 18 mg/dL (NEG) 7 - 20 mg/dL 01-28-2020 PENDI NG LOCATION [Mass/Vol] 05:32040 [facility] (36911) Urea 20 mg/mg (no code) 6 - 22 mg/mg 01-28-2020 PENDING L OCATION nitrogen/Creatin 05:32040 [facility] (55013) ine [Mass ratio] WBC (Bld) 7.5 10*3/uL (NEG) 3.5 - 10.5 01-28-2020 PENDING L OCATION [#/Vol] 10*3/uL 05:32040 [facility] (44930) laboratory on 2019-09-10 Anion gap 13 mmol/L (no code) 3 - 11 mmol/L 09-10-2019 Hospital [Moles/Vol] 07:04-0500 [facility] (75131) Calcium 9.5 mg/dL (no code) 8.5 - 10.2 mg/dL 09-10-2019 Hospi hay [Mass/Vol] 07:04-0500 [facility] (99898) Chloride 103 mmol/L (no code) 95 - 106 mmol/L 09-10-2019 Hospi hay [Moles/Vol] 07:04-0500 [facility] (59719) Creatinine 0.84 mg/dL (no code) 09-10-2019 Hospital [Mass/Vol] 07:04-0500 [facility] (09397) GFR/1.73 sq 96 (no code) 90 - 120 09-10-2019 Hospital M.predicted MDRD mL/min/{1.73_m2} mL/min/{1.73_m2} 07:040500 [facility] (S/P/Bld) [Vol [facility] rate/Area] (09437) Glucose 96 mg/dL (no code) 60 - 125 mg/dL 09-10-2019 Hospita l [Mass/Vol] 07:040500 [facility] (26530) HCO3 (P) 26 (no code) 09-10-2019 Hospital [Moles/Vol] 07:04-0500 [facility] (13890) Osmolality Calc 287 (no code) 09-10-2019 Hospital [Osmolality] 07:040500 [facility] (60796) Potassium 4.4 mmol/L (no code) 3.7 - 5.2 mmol/L 09-10-2019 Hosp ital [Moles/Vol] 07:040500 [facility] (19315) Sodium 138 mmol/L (no code) 135 - 145 mmol/L 09-10-2019 Hosp ital [Moles/Vol] 07:040500 [facility] (08421) Urea nitrogen 18 mg/dL (no code) 7 - 20 mg/dL 09-10-2019 Hospi hay [Mass/Vol] 07:040500 [facility] (25394) laboratory on 2019-02-19 F. tularensis Negative (no code) 02-19-2019 [facility] (000 00) IgG (S) [Titer] 09:57-0400 F. tularensis Negative (no code) 02-19-2019 [facility] (000 00) IgM (S) [Titer] 09:57-0400 laboratory on 2019-02-14 A. Negative (no code) 02-14-2019 [facility] (84544 ) phagocytophilum 15:25-0400 IgG IF (S) [Titer] A. Negative (no code) 02-14-2019 [facility] (85179 ) phagocytophilum 15:25-0400 IgM IF (S) [Titer] E. chaffeensis Negative (no code) 02-14-2019 [facility] (00 000) IgG IF (S) 15:25-0400 [Titer] E. chaffeensis Negative (no code) 02-14-2019 [facility] (00 000) IgM IF (S) 15:25-0400 [Titer] R. rickettsii 1:64 (H) 02-14-2019 [facility] (000 00) IgG IF (S) 17:38-0400 [Titer] R. rickettsii 0.61 (no code) 02-14-2019 [facility] (000 00) IgM Qn (S) 02:46-0400 laboratory on 2019-02-13 B. burgdorferi <0.91 (no code) 02-13-2019 [facility] (00 000) IgG+IgM Qn (S) 16:12-0400 B. burgdorferi <0.80 (no code) 02-13-2019 [facility] (00 000) IgM IA Qn (S) 15:20-0400 R. rickettsii Positive (A) 02-13-2019 [facility] (000 00) IgG IA Ql (S) 23:01-0400 thyroid on 2019-02-11 TSH Qn 0.73 (no code) 02-11-2019 Hospital 18:12-0400 [facility] (19310) other on 2019-02-11 Albumin BCG dye 4.6 (no code) 02-11-2019 Hospital [Mass/Vol] 18:12-0400 [facility] (93795) E. CHAFFEENSIS Negative (no code) 02-11-2019 Hospital (HME) IGG TITER 18:120400 [facility] (09840) E. CHAFFEENSIS Negative (no code) 02-11-2019 Hospital (HME) IGM TITER 18:120400 [facility] (94208) Erythrocyte 12.2 % (no code) 11.6 - 14.6 % 02-11-2019 Hospit al distribution 18:120400 [facility] width (RBC) [facility] [Ratio] (73737) FRANCISELLA Negative (no code) 02-11-2019 Hospital TULARENSIS IGG 18:12-0400 [facility] (03928) GFR/1.73 sq 103 (no code) 90 - 120 02-11-2019 Hospital M.predicted MDRD mL/min/{1.73_m2} mL/min/{1.73_m2} 18:120400 [facility] (S/P/Bld) [Vol [facility] rate/Area] (51926) Globulin (S) 2.4 g/dL (no code) 2 - 3.5 g/dL 02-11-2019 Hospit al [Mass/Vol] 18:12-0400 [facility] (16015) HCO3 (P) 23 (no code) 02-11-2019 Hospital [Moles/Vol] 18:120400 [facility] (25544) HGE IGG TITER Negative (no code) 02-11-2019 Hospital 18:120400 [facility] (59938) HGE IGM TITER Negative (no code) 02-11-2019 Hospital 18:120400 [facility] (83138) LYME DISEASE AB, <0.80 (no code) 02-11-2019 Hospital QUANT, IGM 18: [facility] (01422) LYME IGG/IGM AB <0.91 (no code) 02-11-2019 Hospital 18:0 [facility] (66080) MCHC (RBC) 33.3 g/dL (no code) 32 - 36 g/dL 02-11-2019 Hospital [Mass/Vol] 18:0 [facility] (48641) Osmolality Calc 285 (no code) 02-11-2019 Hospital [Osmolality] 18: [facility] (15063) Platelet mean 11.2 fL (H) 7.2 - 11.7 fL 02-11-2019 Hosp ital volume (Bld) 18:0 [facility] [Entitic vol] [facility] (78136) Rheumatoid [IU]/mL (no code) 0 - 15 [IU]/mL 02-11-2019 Hospit al factor Qn 18: [facility] (66899) RMSF, IGG, EIA Positive (A) 02-11-2019 Hospital 18: [facility] (07613) RMSF, IGG, IFA 1:64 (H) 02-11-2019 Hospital 18:0 [facility] (77456) BONNIE MTN 0.61 (no code) 02-11-2019 Hospital SPOTTED FEVER, 18:0 [facility] IGM [facility] (21953) Urate [Mass/Vol] 6.1 mg/dL (no code) 3.5 - 7.2 mg/dL 02-11-2019 Hospital 18:0 [facility] (55601) metabolic panel on 2019-02-11 ALP [Catalytic 57 U/L (no code) 44 - 147 U/L 02-11-2019 Hosp ital activity/Vol] 18:120400 [facility] (02543) ALT [Catalytic 23 U/L (no code) 4 - 40 U/L 02-11-2019 Hospit al activity/Vol] 18:12 [facility] (60114) Anion gap 15 mmol/L (H) 3 - 11 mmol/L 02-11-2019 Hospital [Moles/Vol] 18:12040 [facility] (49425) AST [Catalytic 20 U/L (no code) 10 - 34 U/L 02-11-2019 Hospi hay activity/Vol] 18: [facility] (35757) Bilirubin 0.6 mg/dL (no code) 0.1 - 1.2 mg/dL 02-11-2019 Hospit al [Mass/Vol] 18: [facility] () Calcium 9.6 mg/dL (no code) 8.5 - 10.2 mg/dL 02-11-2019 Hospi hay [Mass/Vol] 18:12 [facility] () Chloride 104 mmol/L (no code) 95 - 106 mmol/L 02-11-2019 Hospi hay [Moles/Vol] 18: [facility] (69650) Creatinine 0.79 mg/dL (no code) 02-11-2019 Hospital [Mass/Vol] 18: [facility] (28702) Glucose 83 mg/dL (no code) 60 - 125 mg/dL 02-11-2019 Hospita l [Mass/Vol] 18: [facility] (26477) Potassium 4.2 mmol/L (no code) 3.7 - 5.2 mmol/L 02-11-2019 Hosp ital [Moles/Vol] 18:12 [facility] (24270) Protein Negative (no code) 6.4 - 8.3 g/dL 02-11-2019 Hospita l [Mass/Vol] 18:12040 [facility] (19578) Protein 7.0 g/dL (no code) 6.4 - 8.3 g/dL 02-11-2019 Hospita l [Mass/Vol] 18: [facility] (49284) Sodium 138 mmol/L (no code) 135 - 145 mmol/L 02-11-2019 Hosp ital [Moles/Vol] 18:12 [facility] (51710) Urea nitrogen 15 mg/dL (no code) 7 - 20 mg/dL 02-11-2019 Hospi hay [Mass/Vol] 18:120400 [facility] (82297) imm/path on 2019-02-11 Streptolysin O 107.90 [IU]/mL (no code) 0 - 200 [IU]/mL 02-12-20 19 Hospital Ab Qn 18: [facility] (51062) hematology on 2019-02-11 Basophils (Bld) 0.0 10*3/uL (no code) 0 - 0.3 10*3/uL 02-11-2019 Hospital [#/Vol] 18:12040 [facility] (89331) Basophils/100 0.60 % (no code) 0.5 - 1 % 02-11-2019 Hospital WBC (Bld) 18: [facility] (66130) Eosinophils 0.8 10*3/uL (H) 0.05 - 0.5 02-11-2019 Hospita l (Bld) [#/Vol] 10*3/uL 18:12 [facility] (03097) Eosinophils/100 10.9 % (H) 1 - 4 % 02-11-2019 Hospit al WBC (Bld) 18: [facility] (79445) ESR (Bld) 5 mm/h (no code) 02-11-2019 Hospital [Velocity] 18: [facility] (77431) Hematocrit (Bld) 43.0 % (no code) 36.1 - 50.3 % 02-11-2019 H ospital [Volume 18: [facility] fraction] [facility] (52566) Hemoglobin (Bld) 14.3 g/dL (no code) 12.1 - 17.2 g/dL 02-11-2019 Hospital [Mass/Vol] 18: [facility] (42540) Lymphocytes 2.09 10*3/uL (no code) 0.9 - 2.9 02-11-2019 Hospita l (Bld) [#/Vol] 10*3/uL 18: [facility] (41023) Lymphocytes/100 28.9 % (no code) 20 - 40 % 02-11-2019 Hospit al WBC (Bld) 18: [facility] (23115) MCH (RBC) 30.8 pg (no code) 27 - 31 pg 02-11-2019 Hospital [Entitic mass] 18: [facility] (10185) MCV (RBC) 92.7 fL (no code) 80 - 100 fL 02-11-2019 Hospital [Entitic vol] 18: [facility] () Monocytes (Bld) 0.7 10*3/uL (no code) 0.3 - 0.9 02-11-2019 Hosp ital [#/Vol] 10*3/uL 18: [facility] () Monocytes/100 10.2 % (no code) 2 - 8 % 02-11-2019 Hospital WBC (Bld) 18: [facility] () Neutrophils 3.58 10*3/uL (no code) 1.7 - 7 10*3/uL 02-11-2019 H ospital (Bld) [#/Vol] 18: [facility] (79280) Neutrophils/100 49.4 % (no code) 40 - 60 % 02-11-2019 Hospit al WBC (Bld) 18: [facility] (94355) Platelets (Bld) 344 10*3/uL (no code) 150 - 450 02-11-2019 Hosp ital [#/Vol] 10*3/uL 18: [facility] (53666) RBC (Bld) 4.64 10*6/uL (no code) 4.2 - 6.1 02-11-2019 Hospital [#/Vol] 10*6/uL 18: [facility] (31161) WBC (Bld) 7.24 10*3/uL (no code) 3.5 - 10.5 02-11-2019 Hospital [#/Vol] 10*3/uL 18:12 [facility] (80629) other on 2018-12-06 Albumin BCG dye 4.6 (no code) 12-06-2018 Hospital [Mass/Vol] 10: [facility] (48339) Cholesterol in 35 mg/dL (no code) 12-06-2018 Hospital VLDL [Mass/Vol] 10: [facility] (60734) Cholesterol.tota 4.8 {ratio} (no code) 12-06-2018 Hospital l/Cholesterol in 10: [facility] HDL [Mass ratio] [facility] (10993) GFR/1.73 sq 90 (no code) 90 - 120 12-06-2018 Hospital M.predicted MDRD mL/min/{1.73_m2} mL/min/{1.73_m2} 10: [facility] (S/P/Bld) [Vol [facility] rate/Area] (31664) Globulin (S) 2.7 g/dL (no code) 2 - 3.5 g/dL 12-06-2018 Hospit al [Mass/Vol] 10: [facility] (12715) HCO3 (P) 23 (no code) 12-06-2018 Hospital [Moles/Vol] 10: [facility] (64443) Osmolality Calc 285 (no code) 12-06-2018 Hospital [Osmolality] 10: [facility] (81659) metabolic panel on 2018-12-06 ALP [Catalytic 54 U/L (no code) 44 - 147 U/L 12-06-2018 Hosp ital activity/Vol] 10: [facility] (81653) ALT [Catalytic 28 U/L (no code) 4 - 40 U/L 12-06-2018 Hospit al activity/Vol] 10: [facility] (86480) Anion gap 14 mmol/L (no code) 3 - 11 mmol/L 12-06-2018 Hospital [Moles/Vol] 10: [facility] (87091) AST [Catalytic 23 U/L (no code) 10 - 34 U/L 12-06-2018 Hospi hay activity/Vol] 10: [facility] () Bilirubin 0.3 mg/dL (no code) 0.1 - 1.2 mg/dL 12-06-2018 Hospit al [Mass/Vol] 10: [facility] (69433) Calcium 9.9 mg/dL (no code) 8.5 - 10.2 mg/dL 12-06-2018 Hospi hay [Mass/Vol] 10: [facility] () Chloride 104 mmol/L (no code) 95 - 106 mmol/L 12-06-2018 Hospi hay [Moles/Vol] 10: [facility] () Creatinine 0.89 mg/dL (no code) 12-06-2018 Hospital [Mass/Vol] 10: [facility] () Glucose 89 mg/dL (no code) 60 - 125 mg/dL 12-06-2018 Hospita l [Mass/Vol] 10: [facility] () Potassium 4.1 mmol/L (no code) 3.7 - 5.2 mmol/L 12-06-2018 Hosp ital [Moles/Vol] 10: [facility] (67947) Protein 7.3 g/dL (no code) 6.4 - 8.3 g/dL 12-06-2018 Hospita l [Mass/Vol] 10: [facility] () Sodium 137 mmol/L (no code) 135 - 145 mmol/L 12-06-2018 Hosp ital [Moles/Vol] 10: [facility] (27072) Urea nitrogen 19 mg/dL (no code) 7 - 20 mg/dL 12-06-2018 Hospi hay [Mass/Vol] 10: [facility] (24746) cardiac on 2018-12-06 Cholesterol 133 mg/dL (no code) 180 - 200 mg/dL 12-06-2018 Hosp ital [Mass/Vol] 10: [facility] (82776) Cholesterol in 28 mg/dL (L) 12-06-2018 Hospital HDL [Mass/Vol] 10: [facility] (78364) Cholesterol in 70 mg/dL (no code) 0 - 100 mg/dL 12-06-2018 Hos pital LDL [Mass/Vol] 10: [facility] (84876) Triglyceride 177 mg/dL (H) 0 - 150 mg/dL 12-06-2018 Hospi hay [Mass/Vol] 10: [facility] (56706) other on 2018-05-18 Cholesterol in 18 mg/dL (no code) 05-18-2018 Hospital VLDL mass conc 09: [facility] (02431) Cholesterol.tota 3.8 {ratio} (no code) 05-18-2018 Hospital l/Cholesterol in 09: [facility] HDL mass ratio [facility] (57726) cardiac on 2018-05-18 Cholesterol in 34 mg/dL (no code) 05-18-2018 Hospital HDL mass conc 09: [facility] (19184) Cholesterol in 78 mg/dL (no code) 0 - 100 mg/dL 05-18-2018 Hos pital LDL mass conc 09: [facility] (43293) Cholesterol mass 130 mg/dL (no code) 180 - 200 mg/dL 05-18-2018 Hospital conc 09: [facility] (28790) Triglyceride 92 mg/dL (no code) 0 - 150 mg/dL 05-18-2018 Hospi hay mass conc 09: [facility] (76406) Vital Signs The data below is from unstructured sources Vital Response Date/Time Temperature (Fahrenheit) 98.7 degree s F (97.6 - 99.5) 11/26/2016 12:30pm Temperature (Calculated Celsius) 37. 62428 degrees C (36.4 - 37.5) 11/26/2016 12:30pm Temperature Source Temporal 11/26/2016 12:30pm Pulse Rate (adult) 57 bpm (60 - 90) 11/26/2016 1:00pm Respiratory Rate 18 bpm (12 - 24) 11/26/2016 12:30pm O2 Sat by Pulse Oximetry 97 % (88 - 100) 11/26/2016 12:30pm Blood Pressure 97/65 mm Hg 11/26/2016 12:30pm Blood Pressure Mean 76 mm Hg 11/26/2016 12:30pm Pain Numeric Pain Scale 0-No Pain 11/26/2016 2:16pm Height (Feet) 5 feet 9:56pm Height (Inches) 9.00 inches 11/25/2016 9:56pm Height (Calculated Centimeters) 175. 534660 cm 11/25/2016 9:56pm Weight (Pounds) 172 pounds 11/26/2016 6:00am Weight (Ounces) 3.0 oz 0 11/25/2016 9:56pm Weight (Calculated Grams) 84267.888 gm 11/26/2016 6:00am Weight (Calculated Kilograms) 78.017 888 kilograms 11/26/2016 6:00am Calculated BMI 25.4 11/12 9:56pm Capillary Refill Capillary Refill NONE 0 11/25/2016 7:26pm Capillary Refill Less Than 3 Seconds 11/25/2016 7:26pm Vital Response Date/Time Temperature (Fahrenheit) 97.9 degree s F (97.6 - 99.5) 03/06/2017 8:42am Temperature (Calculated Celsius) 36. 44274 degrees C (36.4 - 37.5) 03/06/2017 8:42am Pulse Rate (adult) 56 bpm (60 - 90) 03/06/2017 8:42am Respiratory Rate 18 bpm (12 - 24) 03/06/2017 8:42am O2 Sat by Pulse Oximetry 99 % (88 - 100) 03/06/2017 8:42am Blood Pressure 132/102 mm Hg 03/06/2017 8:42am Blood Pressure Mean 112 mm Hg 03/06/2017 8:42am Pain Numeric Pain Scale 4 8:42am Height (Feet) 5 feet 8:42am Height (Inches) 9.00 inches 03/06/2017 8:42am Height (Calculated Centimeters) 175. 397259 cm 03/06/2017 8:42am Weight (Pounds) 170 pounds 03/06/2017 8:42am Weight (Calculated Kilograms) 77.110 704 kilograms 03/06/2017 8:42am Capillary Refill Capillary Refill Less Than 3 Seconds 03/06/2017 8:42am Height 5 ft 9 in 017 8:42am Weight 170 lb 03/06/2017 8:42am Body Mass Index 25.1 kg/m^2 03/06/2017 8:42am Vital Response Date/Time Temperature (Fahrenheit) 97.9 degree s F (97.6 - 99.5) 03/06/2017 8:42am Temperature (Calculated Celsius) 36. 92399 degrees C (36.4 - 37.5) 03/06/2017 8:42am Pulse Rate (adult) 56 bpm (60 - 90) 03/06/2017 8:42am Respiratory Rate 18 bpm (12 - 24) 03/06/2017 8:42am O2 Sat by Pulse Oximetry 99 % (88 - 100) 03/06/2017 8:42am Blood Pressure 132/102 mm Hg 03/06/2017 8:42am Blood Pressure Mean 112 mm Hg 03/06/2017 8:42am Pain Numeric Pain Scale 4 8:42am Height (Feet) 5 feet 8:42am Height (Inches) 9.00 inches 03/06/2017 8:42am Height (Calculated Centimeters) 175. 819065 cm 03/06/2017 8:42am Weight (Pounds) 170 pounds 03/06/2017 8:42am Weight (Calculated Kilograms) 77.110 704 kilograms 03/06/2017 8:42am Capillary Refill Capillary Refill Less Than 3 Seconds 03/06/2017 8:42am Height 5 ft 9 in 017 8:42am Weight 170 lb 03/06/2017 8:42am Body Mass Index 25.1 kg/m^2 03/06/2017 8:42am Interventions No Information Plan of Treatment The data below is from unstructured sources Discharge Date 11/26/16 2:16pm Disposition 01 HOME, SELF-CARE Instructions/Education Provided Ches t Pain (DC) Prescriptions See Medication Section Referrals ADRYAN GUILLERMO MD FACP FAC CC DS (Unspecified) Order Date: 11/28/2016 Entered Date: 11/26/2016 1:51pm Address: [facility] [address] [place], [place] [id number] Note: APPOINTMENT NOT YET MAD. PLEASE SCHEDULE AN APPOITMENT WITH DR. GUILLERMO THIS MONDAY. Discharge Date 03/06/17 12:31pm Disposition 01 HOME, SELF-CARE Condition at Discharge Improved Instructions/Education Provided Ches t Pain (DC) Prescriptions See Medication Section Referrals ÁNGEL CUMMINGS MD Order Date: Primary Care Physician Address: [facility] [address] [id number] Additional Instructions/Education Al l discharge instructions reviewed with patient and/or family. Voiced understanding. Continue home medications as directed. Keep appointment with Dr. Guillermo on Monday as scheduled. Return for worse pain, fever, vomiting, weakness, breathing problems, sweating, persistent chest pain despite nitroglycerin use or other concerns as needed. Discharge Date 03/06/17 12:31pm Disposition 01 HOME, SELF-CARE Condition at Discharge Improved Instructions/Education Provided Ches t Pain (DC) Prescriptions See Medication Section Referrals ÁNGEL CUMMINGS MD Order Date: Primary Care Physician Address: [facility] [address] [facility] [address] [place], [place] [id number] Additional Instructions/Education Al l discharge instructions reviewed with patient and/or family. Voiced understanding. Continue home medications as directed. Keep appointment with Dr. Guillermo on Monday as scheduled. Return for worse pain, fever, vomiting, weakness, breathing problems, sweating, persistent chest pain despite nitroglycerin use or other concerns as needed. Goals No Information Social History No Information Functional Status The data below is from unstructured sources Query Response Date Frederick rded Patient Orientation Person Place Time Situation November 26, 2016 8:10am Comprehension Ability Understands Co ncepts November 26, 2016 8:10am No functional status information available. Mental Status No Information Encounters Encounter Normalized Encounter Encounter Diagnosis Care Provi liza Organization Date Type 11-04-2016 Emergency department no information no name no organization name patient visit NEGATED Patient encounter no information no name no or ganization name 06-12-2018 05-18-2018 Patient encounter no information no name no or ganization name - 05-19-2018 01-28-2020 Patient encounter no information ADRYAN GUILLERMO MA FSCA [facility] procedure (no phone) [facility] (no phone) 10-01-2019 Patient encounter no information ALI MCKENZIE JEFFERSON FSCA I [facility] [address] procedure (no phone) [facility] (no phone) 09-23-2019 Patient encounter no information ALI MCKENZIE JEFFERSON FSCA I [facility] [address] procedure (no phone) [facility] (no phone) 09-10-2019 Patient encounter no information no name no or ganization name - procedure 09-10-2019 09-10-2019 Patient encounter no information no name no or ganization name - procedure 09-10-2019 08-26-2019 Patient encounter no information no name no or ganization name - procedure 08-26-2019 02-11-2019 Patient encounter no information no name no or ganization name - procedure 02-12-2019 02-11-2019 Patient encounter no information no name no or ganization name - procedure 02-12-2019 12-06-2018 Patient encounter no information no name no or ganization name - procedure 12-07-2018 07-23-2018 Patient encounter no information no name no or ganization name - procedure 07-24-2018 10-20-2017 Patient encounter no information no name no or ganization name - procedure 10-21-2017 03-14-2017 Patient encounter no information no name no or ganization name - procedure 03-14-2017 03-06-2017 Patient encounter no information no name no or ganization name procedure 11-29-2016 Patient encounter no information no name no or ganization name procedure 11-25-2016 Patient encounter no information no name no or ganization name - procedure 11-26-2016 11-04-2016 Patient encounter no information no name no or ganization name - procedure 11-06-2016 Medical Equipment No Information Payers Normalized Payer Value [facility] no information Advance Directives Directive Response Recor ded Date/Time Advance Directives No 9:59pm Organ Donor Yes 11/25/16 9:59pm Resuscitation Status Full Code 11/25/16 9:59pm Directive Response Recor ded Date/Time Advance Directives No 8:42am Organ Donor Yes 03/06/17 8:42am Resuscitation Status Full Code 03/06/17 8:42am Discharge Instructions No hospital discharge instruction information available.No hospital discharge instruction information available. Additional Source Comments This clinical document has been generated using [employer] software that has been certified by the Office of the National Coordinator for Health Information Technology (ONC 15.99.04.3023.Diam.31.00.0.018374) and the National Committee for [employer] (NCQA, as an eMeasure certified technology). FOR RECORDS PERTAINING TO PATIENTS WHO ARE OR HAVE BEEN ENROLLED IN A CHEMICAL D EPENDENCY/SUBSTANCE ABUSE PROGRAM, SOME INFORMATION MAY BE OMITTED. This clinica l summary was aggregated from multiple sources. Caution should be exercised in using it in the provision of clinical care. This summary normalizes information from multiple sources, and as a consequence, information in this document may ma terially change the coding, format and clinical context of patient data. In salina tion, data may be omitted in some cases. CLINICAL DECISIONS SHOULD BE BASED ON T HE PRIMARY CLINICAL RECORDS. [employer] provides no warranty or guara ntee of the accuracy or completeness of information in this document.The followi ng information is based on time limited clinical information
--- OUTSIDE RECORDS SUMMARY | 2020-01-28 10:28 | XMS REPORT | Continuity of Care Document ---
Demographics Preferred Language Unknown Marital Status Unknown Buddhist Affiliation Unknown Race Unknown Ethnic Group Unknown Author Organization Unknown Address Unknown Phone Unavailable Allergies Active Description Code Type Severity Reaction Onset Reported/Identified Relationship to Patient Clinical Status Yes NO KNOWN DRUG ALLERGIES UNKNOWN NO KNOWN DRUG ALLERG Yes NO KNOWN DRUG ALLERGIES UNKNOWN UNKNOWN Yes No Known Drug Allergies [id number] Drug Allergy Unknown N/A 11/04/2016 Medications There is no data. Problems Date Dx Coded Attending Type Code Diagnosis Diagnosed By 11/06/2016 ADA GUILLERMO MD, FACC FACP CCDS Ot E78.5 HYPERLIPIDEMIA, UNSPECIFIED 11/06/2016 EAGLE GIFFORD FACC ALI FACP CCDS Ot I10 ESSENTIAL (PRIMARY) HYPERTENSION 11/06/2016 ADA GUILLERMO MD, FACC FACP CCDS Ot I21.4 NON-ST ELEVATION (NSTEMI) MYOCARDIAL INF 11/06/2016 ADA GUILLERMO MD, FACC FACP CCDS Ot I25.10 ATHSCL HEART DISEASE OF [place] CORONARY 11/06/2016 ADA GUILLERMO MD, FACC FACP CCDS Ot I25.5 ISCHEMIC CARDIOMYOPATHY 11/06/2016 ADA GUILLERMO MD, FACC FACP CCDS Ot Z82.49 FAMILY HX OF ISCHEM HEART DIS AND OTH DI 11/26/2016 CAMILO FARRIS MD Ot I21.4 NON-ST ELEVATION (NSTEMI) MYOCARDIAL INF 11/26/2016 CAMILO FARRIS MD Ot I25.10 ATHSCL HEART DISEASE OF [place] CORONARY 11/26/2016 CAMILO FARRIS MD Ot R07.9 CHEST PAIN, UNSPECIFIED 11/26/2016 CAMILO FARRIS MD Ot Z95.5 PRESENCE OF CORONARY ANGIOPLASTY IMPLANT 11/30/2016 ADA GUILLERMO MD, FACC FACP CCDS Ot E78.4 OTHER HYPERLIPIDEMIA 11/30/2016 EAGLE GIFFORD FACC, ALI FACP CCDS Ot I10 ESSENTIAL (PRIMARY) HYPERTENSION 11/30/2016 ADA GUILLERMO MD, FACC FACP CCDS Ot I25.10 ATHSCL HEART DISEASE OF [place] CORONARY 11/30/2016 EAGLE MD FACC, ALI FACP CCDS Ot I25.5 ISCHEMIC CARDIOMYOPATHY 12/29/2016 EAGLE GIFFORD [facility], ALI FACP CCDS Ot E78.4 OTHER HYPERLIPIDEMIA 12/29/2016 EAGLE GIFFORD FACC, ALI FACP CCDS Ot I10 ESSENTIAL (PRIMARY) HYPERTENSION 12/29/2016 EAGLE GIFFORD FACC, ALI FACP CCDS Ot I25.10 ATHSCL HEART DISEASE OF [place] CORONARY 12/29/2016 EAGLE GIFFORD FACC, ALI FACP CCDS Ot I25.5 ISCHEMIC CARDIOMYOPATHY 03/06/2017 GRACE AREVALO MD Ot I25.10 ATHSCL HEART DISEASE OF [place] CORONARY 03/06/2017 GRACE AREVALO MD Ot I25.2 OLD MYOCARDIAL INFARCTION 03/06/2017 GRACE AREVALO MD Ot R07.9 CHEST PAIN, UNSPECIFIED 03/06/2017 GRACE AREVALO MD Ot Z95.5 PRESENCE OF CORONARY ANGIOPLASTY IMPLANT 03/06/2017 GRACE AREVALO MD Ot Z98.52 VASECTOMY STATUS 03/10/2017 EAGLE REID, ADA FACP CCDS Ot E78.4 OTHER HYPERLIPIDEMIA 03/10/2017 EAGLE REID, ADA FACP CCDS Ot I10 ESSENTIAL (PRIMARY) HYPERTENSION 03/10/2017 EAGLE GIFFORD FACC, ALI FACP CCDS Ot I25.10 ATHSCL HEART DISEASE OF [place] CORONARY 03/10/2017 EAGLE REID, ALI FACP CCDS Ot I25.5 ISCHEMIC CARDIOMYOPATHY 03/14/2017 GRAZYNA THOMAS [employer]STRATEGY DEVELOPER Ot E78.5 HYPERLIPIDEMIA, UNSPECIFIED 03/14/2017 GRAZYNA THOMAS L MICROSTRATEGY DEVELOPER Ot I 10 ESSENTIAL (PRIMARY) HYPERTENSION 03/14/2017 GRAZYNA THOMAS L MICROSTRATEGY DEVELOPER Ot I25.10 ATHSCL HEART DISEASE OF [place] CORONARY 03/14/2017 GRAZYNA THOMAS MICROSTRATEGY DEVELOPER Ot I25.2 OLD MYOCARDIAL INFARCTION 03/14/2017 GRAZYNA THOMAS MICROSTRATEGY DEVELOPER Ot I25.84 CORONARY ATHEROSCLEROSIS DUE TO CALCIFIE 03/14/2017 GRAZYNA THOMAS MICROSTRATEGY DEVELOPER Ot R07.89 OTHER CHEST PAIN 03/14/2017 GRAZYNA THOMAS MICROSTRATEGY DEVELOPER Ot Z79.899 OTHER ASSISTED (CURRENT) DRUG THERAPY 03/14/2017 GRAZYNA THOMAS MICROSTRATEGY DEVELOPER Ot Z82.49 FAMILY HX OF ISCHEM HEART DIS AND OTH DI 03/14/2017 GRAZYNA THOMAS Ot Z95.1 PRESENCE OF AORTOCORONARY BYPASS GRAFT 04/06/2017 GRACE AREVALO MD Ot I25.10 ATHSCL HEART DISEASE OF [place] CORONARY 04/06/2017 GRACE AREVALO MD Ot I25.2 OLD MYOCARDIAL INFARCTION 04/06/2017 GRACE AREVALO MD Ot R07.9 CHEST PAIN, UNSPECIFIED 04/06/2017 GRACE AREVALO MD Ot Z95.5 PRESENCE OF CORONARY ANGIOPLASTY IMPLANT 04/06/2017 GRACE AREVALO MD Ot Z98.52 VASECTOMY STATUS 10/20/2017 W 462 ACUTE PHARYNGITIS 10/20/2017 W 780.60 FEV ER, UNSPECIFIED 10/20/2017 W 780.79 OTH ER MALAISE AND FATIGUE 10/20/2017 W J02.9 ACUT E PHARYNGITIS, UNSPECIFIED 10/20/2017 W R50.9 FEVE R, UNSPECIFIED 10/20/2017 W R53.1 WEAKNESS 05/18/2018 Ada Guillermo W 272.4 OTHER AND UNSPECIFIED HYPERLIPIDEMIA 05/18/2018 Eagle Ali W 414.01 CORONARY ATHEROSCLEROSIS OF [place] CORONARY ARTERY 05/18/2018 Eagle Ali W E78.4 OTHER HYPERLIPIDEMIA 05/18/2018 Eagle Ali W I25.10 ATHEROSCLEROTIC HEART DISEASE OF [place] CORONARY ARTERY WITHOUT ANGINA PECTORIS 05/18/2018 Eagle Ali W 272.4 OTHER AND UNSPECIFIED HYPERLIPIDEMIA 05/18/2018 Eagle Ali W 414.01 CORONARY ATHEROSCLEROSIS OF [place] CORONARY ARTERY 05/18/2018 Eagle Ali W E78.4 OTHER HYPERLIPIDEMIA 05/18/2018 Eagle Ali W I25.10 ATHEROSCLEROTIC HEART DISEASE OF [place] CORONARY ARTERY WITHOUT ANGINA PECTORIS 05/18/2018 W 272.4 OTHE R AND UNSPECIFIED HYPERLIPIDEMIA 05/18/2018 W 414.01 COR ONARY ATHEROSCLEROSIS OF [place] CORONARY ARTERY 05/18/2018 W E78.4 OTHE R HYPERLIPIDEMIA 05/18/2018 W I25.10 ATH EROSCLEROTIC HEART DISEASE OF [place] CORONARY ARTERY WITHOUT ANGINA PECTORIS 06/13/2018 GRAZYNA THOMASP Ot E78.5 HYPERLIPIDEMIA, UNSPECIFIED 06/13/2018 BAIMA, GRAZYNA L MICROSTRATEGY DEVELOPER Ot I25.10 ATHSCL HEART DISEASE OF [place] CORONARY 06/13/2018 GRAZYNA THOMAS MICROSTRATEGY DEVELOPER Ot I77.89 OTHER SPECIFIED DISORDERS OF ARTERIES AN 06/13/2018 GRAZYNA THOMAS MICROSTRATEGY DEVELOPER Ot R07.9 CHEST PAIN, UNSPECIFIED 06/13/2018 GRAZYNA THOMAS MICROSTRATEGY DEVELOPER Ot E78.5 HYPERLIPIDEMIA, UNSPECIFIED 06/13/2018 BAIGRAZYNA JEFFERSON L MICROSTRATEGY DEVELOPER Ot I25.10 ATHSCL HEART DISEASE OF [place] CORONARY 06/13/2018 GRAZYNA THOMAS MICROSTRATEGY DEVELOPER Ot I77.89 OTHER SPECIFIED DISORDERS OF ARTERIES AN 06/13/2018 GRAZYNA THOMAS MICROSTRATEGY DEVELOPER Ot R07.9 CHEST PAIN, UNSPECIFIED 07/23/2018 W 465.8 ACUT E UPPER RESPIRATORY INFECTIONS OF OTHER MULTIPLE SITES 07/23/2018 W J06.9 ACUT E UPPER RESPIRATORY INFECTION, UNSPECIFIED 02/11/2019 W 780.79 OTH ER MALAISE AND FATIGUE 02/11/2019 W R53.1 WEAKNESS 09/24/2019 EAGLE GIFFORD FACC, ADA FACP CCDS Ot E78.49 OTHER HYPERLIPIDEMIA 09/24/2019 EAGLE GIFFORD FACC, ALI FACP CCDS Ot I10 ESSENTIAL (PRIMARY) HYPERTENSION 09/24/2019 EAGLE GIFFORD FACC, ALI FACP CCDS Ot I25.10 ATHSCL HEART DISEASE OF [place] CORONARY 09/24/2019 EAGLE GIFFORD FACC, ALI FACP CCDS Ot R00.2 PALPITATIONS 09/24/2019 EAGLE GIFFORD FACC, ALI FACP CCDS Ot R07.9 CHEST PAIN, UNSPECIFIED 10/02/2019 EAGLE GIFFORD FACC, ALI FACP CCDS Ot E78.2 MIXED HYPERLIPIDEMIA 10/02/2019 EAGLE GIFFORD FACC, ALI FACP CCDS Ot I10 ESSENTIAL (PRIMARY) HYPERTENSION 10/02/2019 EAGLE GIFFORD FACC, ALI FACP CCDS Ot I25.10 ATHSCL HEART DISEASE OF [place] CORONARY 10/02/2019 EAGLE GIFFORD FACC, ALI FACP CCDS Ot R00.2 PALPITATIONS 10/02/2019 EAGLE GIFFORD FACC, ALI FACP CCDS Ot R07.9 CHEST PAIN, UNSPECIFIED 10/07/2019 EAGLE GIFFORD FACC, ALI FACP CCDS Ot E78.2 MIXED HYPERLIPIDEMIA 10/07/2019 EAGLE MD [facility], ALI FACP CCDS Ot I10 ESSENTIAL (PRIMARY) HYPERTENSION 10/07/2019 EAGLE MD [facility], ALI FACP CCDS Ot I25.10 ATHSCL HEART DISEASE OF [place] CORONARY 10/07/2019 [facility], ALI FACP CCDS Ot R00.2 PALPITATIONS 10/07/2019 [facility], ALI FACP CCDS Ot R07.9 CHEST PAIN, UNSPECIFIED 10/10/2019 [facility]LE [facility], ALI FACP CCDS Ot E78.49 OTHER HYPERLIPIDEMIA 10/10/2019 [facility], ALI FACP CCDS Ot I10 ESSENTIAL (PRIMARY) HYPERTENSION 10/10/2019 [facility], ALI FACP CCDS Ot I25.10 ATHSCL HEART DISEASE OF [place] CORONARY 10/10/2019 [facility]LE [facility], ALI FACP CCDS Ot R00.2 PALPITATIONS 10/10/2019 [facility], ALI FACP CCDS Ot R07.9 CHEST PAIN, UNSPECIFIED Procedures Code Description Performed By Per armaan [place] [id number] DI LATION OF 1 COR ART WITH DRUG-ELUT INT 11/04/2016 [id number] ME ASURE OF CARDIAC SAMPL PRESSURE, L H 11/04/2016 [id number] FL UOROSCOPY OF MULT COR ART USING L OSM 11/04/2016 [id number] FL UOROSCOPY OF LEFT HEART USING LOW OSMO 11/04/2016 Results Test Result Range Lipase - 11/04/16 07:27 Lipase 19 U/L 8-78 Complete blood count (CBC) with automate d white blood cell (WBC) differential - 11/04/16 07:29 Blood leukocytes automated count (number/volume) 11.4 10*3/uL 4.3-11.0 Blood erythrocytes automated count (number/volume) 4.71 10*6/uL 4.35-5.85 Venous blood hemoglobin measurement (mass/volume) 14.3 g/dL 13.3-17.7 Blood hematocrit (volume fraction) 42 % 40-54 Automated erythrocyte mean corpuscular volume 89 [ foz_us] 80-99 Automated erythrocyte mean corpuscular h emoglobin (mass per erythrocyte) 30 pg 25-34 Automated erythrocyte mean corpuscular h emoglobin concentration measurement (mass/volume) 34 g/dL 32-36 Automated erythrocyte distribution width ratio 13. 2 % 10.0- 14.5 Automated blood platelet count (count/volume) 368 10*3/uL 130-400 Automated blood platelet mean volume measurement 10.5 [foz_us] 7.4-10.4 Automated blood neutrophils/100 leukocytes 61 % 42-75 Automated blood lymphocytes/100 leukocytes 24 % 12-44 Blood monocytes/100 leukocytes 11 % 0-12 Automated blood eosinophils/100 leukocytes 4 % 0-10 Automated blood basophils/100 leukocytes 0 % 0-10 Blood neutrophils automated count (number/volume) 7.0 10*3 1.8-7.8 Blood lymphocytes automated count (number/volume) 2.7 10*3 1.0-4.0 Blood monocytes automated count (number/volume) 1. 2 10*3 0.0-1.0 Automated eosinophil count 0.4 10*3/uL 0 .0-0.3 Automated blood basophil count (count/volume) 0.0 10*3/uL 0.0-0.1 PT panel in platelet poor plasma by coag ulation assay - 11/04/16 07:29 Prothrombin time (PT) in platelet poor plasma by coagu lation assay 12.2 s 12.2-14.7 INR in platelet poor plasma or blood by coagulation as say 0.9 0.8-1.4 Activated partial thromboplastin time (a PTT) in platelet poor plasma bycoagulation assay - 11/04/16 07:29 Activated partial thromboplastin time (a PTT) in platelet poor plasma bycoagulation assay 32 s 24-35 Comprehensive metabolic panel - 11/04/16 07:29 Serum or plasma sodium measurement (moles/volume) 137 mmol/L 135-145 Serum or plasma potassium measurement (moles/volume) 4.0 mmol/L 3.6-5.0 Serum or plasma chloride measurement (moles/volume) 101 mmol/L 98-107 Carbon dioxide 20 mmol/L 21-32 Serum or plasma anion gap determination (moles/volume) 16 mmol/L 5-14 Serum or plasma urea nitrogen measurement (mass/volume ) 14 mg/dL 7-18 Serum or plasma creatinine measurement (mass/volume) 0.84 mg/dL 0.60-1.30 Serum or plasma urea nitrogen/creatinine mass ratio 17 NRG Serum or plasma creatinine measurement w ith calculation of estimated glomerular filtration rate > NRG Serum or plasma glucose measurement (mass/volume) 101 mg/dL 70-105 Serum or plasma calcium measurement (mass/volume) 9.3 mg/dL 8.5-10.1 Serum or plasma total bilirubin measurement (mass/volu me) 0.3 mg/dL 0.1-1.0 Serum or plasma alkaline phosphatase maritza surement (enzymatic activity/volume) 71 U/L 40-136 Serum or plasma aspartate aminotransfera se measurement (enzymatic activity/volume) 55 U/L 5-34 Serum or plasma alanine aminotransferase measurement (enzymatic activity/volume) 24 U/L 0-55 Serum or plasma protein measurement (mass/volume) 7.9 g/dL 6.4-8.2 Serum or plasma albumin measurement (mass/volume) 4.6 g/dL 3.2-4.5 Magnesium - 11/04/16 07:29 Magnesium 2.4 mg/dL 1.8-2.4 Serum or plasma troponin i.cardiac measu rement (mass/volume) - 11/04/16 07:29 Serum or plasma troponin i.cardiac measurement (mass/v olume) 4.55 ng/mL <0.30 Automated blood complete blood count (he mogram) panel - 11/05/16 03:40 Blood leukocytes automated count (number/volume) 12.2 10*3/uL 4.3-11.0 Blood erythrocytes automated count (number/volume) 4.13 10*6/uL 4.35-5.85 Venous blood hemoglobin measurement (mass/volume) 12.7 g/dL 13.3-17.7 Blood hematocrit (volume fraction) 38 % 40-54 Automated erythrocyte mean corpuscular volume 91 [ foz_us] 80-99 Automated erythrocyte mean corpuscular h emoglobin (mass per erythrocyte) 31 pg 25-34 Automated erythrocyte mean corpuscular h emoglobin concentration measurement (mass/volume) 34 g/dL 32-36 Automated erythrocyte distribution width ratio 13. 3 % 10.0- 14.5 Automated blood platelet count (count/volume) 327 10*3/uL 130-400 Automated blood platelet mean volume measurement 10.8 [foz_us] 7.4-10.4 Comprehensive metabolic panel - 11/05/16 03:40 Serum or plasma sodium measurement (moles/volume) 137 mmol/L 135-145 Serum or plasma potassium measurement (moles/volume) 4.2 mmol/L 3.6-5.0 Serum or plasma chloride measurement (moles/volume) 103 mmol/L 98-107 Carbon dioxide 26 mmol/L 21-32 Serum or plasma anion gap determination (moles/volume) 8 mmol/L 5-14 Serum or plasma urea nitrogen measurement (mass/volume ) 11 mg/dL 7-18 Serum or plasma creatinine measurement (mass/volume) 0.84 mg/dL 0.60-1.30 Serum or plasma urea nitrogen/creatinine mass ratio 13 NRG Serum or plasma creatinine measurement w ith calculation of estimated glomerular filtration rate > NRG Serum or plasma glucose measurement (mass/volume) 97 mg/dL 70-105 Serum or plasma calcium measurement (mass/volume) 8.7 mg/dL 8.5-10.1 Serum or plasma total bilirubin measurement (mass/volu me) 1.0 mg/dL 0.1-1.0 Serum or plasma alkaline phosphatase maritza surement (enzymatic activity/volume) 65 U/L 40-136 Serum or plasma aspartate aminotransfera se measurement (enzymatic activity/volume) 46 U/L 5-34 Serum or plasma alanine aminotransferase measurement (enzymatic activity/volume) 19 U/L 0-55 Serum or plasma protein measurement (mass/volume) 6.1 g/dL 6.4-8.2 Serum or plasma albumin measurement (mass/volume) 3.7 g/dL 3.2-4.5 Lipid 1996 panel - 11/05/16 03:40 Serum or plasma triglyceride measurement (mass/volume) 152 mg/dL <150 Serum or plasma cholesterol measurement (mass/volume) 171 mg/dL < 200 Serum or plasma cholesterol in HDL measurement (mass/v olume) 30 mg/dL 40-60 Cholesterol in LDL [mass/volume] in serum or plasma by direct assay 120 mg/dL 1-129 Serum or plasma cholesterol in VLDL measurement (mass/ volume) 30 mg/dL 5-40 THYROID STIMULATING HORMONE - 11/05/16 0 3:40 THYROID STIMULATING HORMONE 0.31 u[iU]/mL 0.35-4.94 Complete blood count (CBC) with automate d white blood cell (WBC) differential - 11/06/16 04:00 Blood leukocytes automated count (number/volume) 9.6 10*3/uL 4.3-11.0 Blood erythrocytes automated count (number/volume) 4.20 10*6/uL 4.35-5.85 Venous blood hemoglobin measurement (mass/volume) 12.7 g/dL 13.3-17.7 Blood hematocrit (volume fraction) 38 % 40-54 Automated erythrocyte mean corpuscular volume 91 [ foz_us] 80-99 Automated erythrocyte mean corpuscular h emoglobin (mass per erythrocyte) 30 pg 25-34 Automated erythrocyte mean corpuscular h emoglobin concentration measurement (mass/volume) 33 g/dL 32-36 Automated erythrocyte distribution width ratio 13. 0 % 10.0- 14.5 Automated blood platelet count (count/volume) 333 10*3/uL 130-400 Automated blood platelet mean volume measurement 10.5 [foz_us] 7.4-10.4 Automated blood neutrophils/100 leukocytes 58 % 42-75 Automated blood lymphocytes/100 leukocytes 28 % 12-44 Blood monocytes/100 leukocytes 12 % 0-12 Automated blood eosinophils/100 leukocytes 3 % 0-10 Automated blood basophils/100 leukocytes 0 % 0-10 Blood neutrophils automated count (number/volume) 5.5 10*3 1.8-7.8 Blood lymphocytes automated count (number/volume) 2.7 10*3 1.0-4.0 Blood monocytes automated count (number/volume) 1. 1 10*3 0.0-1.0 Automated eosinophil count 0.3 10*3/uL 0 .0-0.3 Automated blood basophil count (count/volume) 0.0 10*3/uL 0.0-0.1 Comprehensive metabolic panel - 11/06/16 04:00 Serum or plasma sodium measurement (moles/volume) 138 mmol/L 135-145 Serum or plasma potassium measurement (moles/volume) 4.1 mmol/L 3.6-5.0 Serum or plasma chloride measurement (moles/volume) 104 mmol/L 98-107 Carbon dioxide 24 mmol/L 21-32 Serum or plasma anion gap determination (moles/volume) 10 mmol/L 5-14 Serum or plasma urea nitrogen measurement (mass/volume ) 12 mg/dL 7-18 Serum or plasma creatinine measurement (mass/volume) 0.81 mg/dL 0.60-1.30 Serum or plasma urea nitrogen/creatinine mass ratio 15 NRG Serum or plasma creatinine measurement w ith calculation of estimated glomerular filtration rate > NRG Serum or plasma glucose measurement (mass/volume) 93 mg/dL 70-105 Serum or plasma calcium measurement (mass/volume) 8.8 mg/dL 8.5-10.1 Serum or plasma total bilirubin measurement (mass/volu me) 0.8 mg/dL 0.1-1.0 Serum or plasma alkaline phosphatase maritza surement (enzymatic activity/volume) 58 U/L 40-136 Serum or plasma aspartate aminotransfera se measurement (enzymatic activity/volume) 27 U/L 5-34 Serum or plasma alanine aminotransferase measurement (enzymatic activity/volume) 16 U/L 0-55 Serum or plasma protein measurement (mass/volume) 6.5 g/dL 6.4-8.2 Serum or plasma albumin measurement (mass/volume) 3.8 g/dL 3.2-4.5 Magnesium - 11/06/16 04:00 Magnesium 2.2 mg/dL 1.8-2.4 Complete blood count (CBC) with automate d white blood cell (WBC) differential - 11/25/16 19:24 Blood leukocytes automated count (number/volume) 9.4 10*3/uL 4.3-11.0 Blood erythrocytes automated count (number/volume) 4.43 10*6/uL 4.35-5.85 Venous blood hemoglobin measurement (mass/volume) 13.6 g/dL 13.3-17.7 Blood hematocrit (volume fraction) 40 % 40-54 Automated erythrocyte mean corpuscular volume 90 [ foz_us] 80-99 Automated erythrocyte mean corpuscular h emoglobin (mass per erythrocyte) 31 pg 25-34 Automated erythrocyte mean corpuscular h emoglobin concentration measurement (mass/volume) 34 g/dL 32-36 Automated erythrocyte distribution width ratio 12. 5 % 10.0- 14.5 Automated blood platelet count (count/volume) 401 10*3/uL 130-400 Automated blood platelet mean volume measurement 10.6 [foz_us] 7.4-10.4 Automated blood neutrophils/100 leukocytes 59 % 42-75 Automated blood lymphocytes/100 leukocytes 30 % 12-44 Blood monocytes/100 leukocytes 7 % 0-12 Automated blood eosinophils/100 leukocytes 4 % 0-10 Automated blood basophils/100 leukocytes 0 % 0-10 Blood neutrophils automated count (number/volume) 5.6 10*3 1.8-7.8 Blood lymphocytes automated count (number/volume) 2.8 10*3 1.0-4.0 Blood monocytes automated count (number/volume) 0. 7 10*3 0.0-1.0 Automated eosinophil count 0.4 10*3/uL 0 .0-0.3 Automated blood basophil count (count/volume) 0.0 10*3/uL 0.0-0.1 PT panel in platelet poor plasma by coag ulation assay - 11/25/16 19:24 Prothrombin time (PT) in platelet poor plasma by coagu lation assay 13.4 s 12.2-14.7 INR in platelet poor plasma or blood by coagulation as say 1.1 0.8-1.4 Activated partial thromboplastin time (a PTT) in platelet poor plasma bycoagulation assay - 11/25/16 19:24 Activated partial thromboplastin time (a PTT) in platelet poor plasma bycoagulation assay 32 s 24-35 Comprehensive metabolic panel - 11/25/16 19:24 Serum or plasma sodium measurement (moles/volume) 138 mmol/L 135-145 Serum or plasma potassium measurement (moles/volume) 3.9 mmol/L 3.6-5.0 Serum or plasma chloride measurement (moles/volume) 105 mmol/L 98-107 Carbon dioxide 20 mmol/L 21-32 Serum or plasma anion gap determination (moles/volume) 13 mmol/L 5-14 Serum or plasma urea nitrogen measurement (mass/volume ) 17 mg/dL 7-18 Serum or plasma creatinine measurement (mass/volume) 0.84 mg/dL 0.60-1.30 Serum or plasma urea nitrogen/creatinine mass ratio 20 NRG Serum or plasma creatinine measurement w ith calculation of estimated glomerular filtration rate > NRG Serum or plasma glucose measurement (mass/volume) 77 mg/dL 70-105 Serum or plasma calcium measurement (mass/volume) 9.1 mg/dL 8.5-10.1 Serum or plasma total bilirubin measurement (mass/volu me) 0.8 mg/dL 0.1-1.0 Serum or plasma alkaline phosphatase maritza surement (enzymatic activity/volume) 64 U/L 40-136 Serum or plasma aspartate aminotransfera se measurement (enzymatic activity/volume) 22 U/L 5-34 Serum or plasma alanine aminotransferase measurement (enzymatic activity/volume) 22 U/L 0-55 Serum or plasma protein measurement (mass/volume) 7.3 g/dL 6.4-8.2 Serum or plasma albumin measurement (mass/volume) 4.5 g/dL 3.2-4.5 Magnesium - 11/25/16 19:24 Magnesium 2.1 mg/dL 1.8-2.4 Serum or plasma troponin i.cardiac measu rement (mass/volume) - 11/25/16 19:24 Serum or plasma troponin i.cardiac measurement (mass/v olume) < ng/mL <0.30 Myoglobin, serum - 11/25/16 19:24 Myoglobin, serum 26.8 ng/mL 10.0-92.0 Serum or plasma troponin i.cardiac measu rement (mass/volume) - 11/26/16 01:02 Serum or plasma troponin i.cardiac measurement (mass/v olume) < ng/mL <0.30 Blood CBC with ordered manual differenti al panel - 11/26/16 03:51 Blood leukocytes automated count (number/volume) 5.9 10*3/uL 4.3-11.0 Blood erythrocytes automated count (number/volume) 4.31 10*6/uL 4.35-5.85 Venous blood hemoglobin measurement (mass/volume) 13.1 g/dL 13.3-17.7 Blood hematocrit (volume fraction) 39 % 40-54 Automated erythrocyte mean corpuscular volume 91 [ foz_us] 80-99 Automated erythrocyte mean corpuscular h emoglobin (mass per erythrocyte) 30 pg 25-34 Automated erythrocyte mean corpuscular h emoglobin concentration measurement (mass/volume) 34 g/dL 32-36 Automated erythrocyte distribution width ratio 12. 6 % 10.0- 14.5 Automated blood platelet count (count/volume) 380 10*3/uL 130-400 Automated blood platelet mean volume measurement 10.8 [foz_us] 7.4-10.4 Automated blood neutrophils/100 leukocytes 45 % 42-75 Automated blood lymphocytes/100 leukocytes 38 % 12-44 Blood monocytes/100 leukocytes 5 % NRG Automated blood eosinophils/100 leukocytes 6 % 0-10 Automated blood basophils/100 leukocytes 1 % 0-10 Blood neutrophils automated count (number/volume) 2.6 10*3 1.8-7.8 Blood lymphocytes automated count (number/volume) 2.2 10*3 1.0-4.0 Blood monocytes automated count (number/volume) 0. 6 10*3 0.0-1.0 Automated eosinophil count 0.3 10*3/uL 0 .0-0.3 Automated blood basophil count (count/volume) 0.0 10*3/uL 0.0-0.1 Manual blood segmented neutrophils/100 leukocytes 53 % NRG Blood band neutrophils/100 leukocytes 0 % NRG Manual blood lymphocytes/100 leukocytes 28 % NRG Manual eosinophils/100 leukocytes in nose 5 % NRG Manual blood basophils/100 leukocytes 2 % NRG Blood lymphocytes variant/100 leukocytes 7 % NRG Blood erythrocyte morphology finding identification [facility] Blood platelet clump detection by light microscopy [facility] Comprehensive metabolic panel - 11/26/16 03:51 Serum or plasma sodium measurement (moles/volume) 139 mmol/L 135-145 Serum or plasma potassium measurement (moles/volume) 3.6 mmol/L 3.6-5.0 Serum or plasma chloride measurement (moles/volume) 107 mmol/L 98-107 Carbon dioxide 22 mmol/L 21-32 Serum or plasma anion gap determination (moles/volume) 10 mmol/L 5-14 Serum or plasma urea nitrogen measurement (mass/volume ) 16 mg/dL 7-18 Serum or plasma creatinine measurement (mass/volume) 0.77 mg/dL 0.60-1.30 Serum or plasma urea nitrogen/creatinine mass ratio 21 NRG Serum or plasma creatinine measurement w ith calculation of estimated glomerular filtration rate > NRG Serum or plasma glucose measurement (mass/volume) 81 mg/dL 70-105 Serum or plasma calcium measurement (mass/volume) 8.3 mg/dL 8.5-10.1 Serum or plasma total bilirubin measurement (mass/volu me) 0.6 mg/dL 0.1-1.0 Serum or plasma alkaline phosphatase maritza surement (enzymatic activity/volume) 56 U/L 40-136 Serum or plasma aspartate aminotransfera se measurement (enzymatic activity/volume) 19 U/L 5-34 Serum or plasma alanine aminotransferase measurement (enzymatic activity/volume) 18 U/L 0-55 Serum or plasma protein measurement (mass/volume) 6.1 g/dL 6.4-8.2 Serum or plasma albumin measurement (mass/volume) 3.8 g/dL 3.2-4.5 Myoglobin, serum - 11/26/16 03:51 Myoglobin, serum 22.0 ng/mL 10.0-92.0 Lipid 1996 panel - 11/26/16 03:51 Serum or plasma triglyceride measurement (mass/volume) 92 mg/dL <150 Serum or plasma cholesterol measurement (mass/volume) 89 mg/dL < 200 Serum or plasma cholesterol in HDL measurement (mass/v olume) 26 mg/dL 40-60 Cholesterol in LDL [mass/volume] in serum or plasma by direct assay 47 mg/dL 1-129 Serum or plasma cholesterol in VLDL measurement (mass/ volume) 18 mg/dL 5-40 Comprehensive metabolic panel - 11/29/16 07:46 Serum or plasma sodium measurement (moles/volume) 139 mmol/L 135-145 Serum or plasma potassium measurement (moles/volume) 3.9 mmol/L 3.6-5.0 Serum or plasma chloride measurement (moles/volume) 105 mmol/L 98-107 Carbon dioxide 24 mmol/L 21-32 Serum or plasma anion gap determination (moles/volume) 10 mmol/L 5-14 Serum or plasma urea nitrogen measurement (mass/volume ) 13 mg/dL 7-18 Serum or plasma creatinine measurement (mass/volume) 0.90 mg/dL 0.60-1.30 Serum or plasma urea nitrogen/creatinine mass ratio 14 NRG Serum or plasma creatinine measurement w ith calculation of estimated glomerular filtration rate > NRG Serum or plasma glucose measurement (mass/volume) 98 mg/dL 70-105 Serum or plasma calcium measurement (mass/volume) 9.0 mg/dL 8.5-10.1 Serum or plasma total bilirubin measurement (mass/volu me) 0.6 mg/dL 0.1-1.0 Serum or plasma alkaline phosphatase maritza surement (enzymatic activity/volume) 60 U/L 40-136 Serum or plasma aspartate aminotransfera se measurement (enzymatic activity/volume) 49 U/L 5-34 Serum or plasma alanine aminotransferase measurement (enzymatic activity/volume) 48 U/L 0-55 Serum or plasma protein measurement (mass/volume) 6.9 g/dL 6.4-8.2 Serum or plasma albumin measurement (mass/volume) 4.3 g/dL 3.2-4.5 Lipid 1996 panel - 11/29/16 07:46 Serum or plasma triglyceride measurement (mass/volume) 100 mg/dL <150 Serum or plasma cholesterol measurement (mass/volume) 100 mg/dL < 200 Serum or plasma cholesterol in HDL measurement (mass/v olume) 28 mg/dL 40-60 Cholesterol in LDL [mass/volume] in serum or plasma by direct assay 53 mg/dL 1-129 Serum or plasma cholesterol in VLDL measurement (mass/ volume) 20 mg/dL 5-40 Complete blood count (CBC) with automate d white blood cell (WBC) differential - 03/06/17 08:55 Blood leukocytes automated count (number/volume) 6.6 10*3/uL 4.3-11.0 Blood erythrocytes automated count (number/volume) 4.69 10*6/uL 4.35-5.85 Venous blood hemoglobin measurement (mass/volume) 13.4 g/dL 13.3-17.7 Blood hematocrit (volume fraction) 41 % 40-54 Automated erythrocyte mean corpuscular volume 88 [ foz_us] 80-99 Automated erythrocyte mean corpuscular h emoglobin (mass per erythrocyte) 29 pg 25-34 Automated erythrocyte mean corpuscular h emoglobin concentration measurement (mass/volume) 32 g/dL 32-36 Automated erythrocyte distribution width ratio 13. 0 % 10.0- 14.5 Automated blood platelet count (count/volume) 299 10*3/uL 130-400 Automated blood platelet mean volume measurement 10.6 [foz_us] 7.4-10.4 Automated blood neutrophils/100 leukocytes 53 % 42-75 Automated blood lymphocytes/100 leukocytes 33 % 12-44 Blood monocytes/100 leukocytes 10 % 0-12 Automated blood eosinophils/100 leukocytes 4 % 0-10 Automated blood basophils/100 leukocytes 0 % 0-10 Blood neutrophils automated count (number/volume) 3.5 10*3 1.8-7.8 Blood lymphocytes automated count (number/volume) 2.2 10*3 1.0-4.0 Blood monocytes automated count (number/volume) 0. 6 10*3 0.0-1.0 Automated eosinophil count 0.3 10*3/uL 0 .0-0.3 Automated blood basophil count (count/volume) 0.0 10*3/uL 0.0-0.1 PT panel in platelet poor plasma by coag ulation assay - 03/06/17 08:55 Prothrombin time (PT) in platelet poor plasma by coagu lation assay 12.3 s 12.2-14.7 INR in platelet poor plasma or blood by coagulation as say 0.9 0.8-1.4 Activated partial thromboplastin time (a PTT) in platelet poor plasma bycoagulation assay - 03/06/17 08:55 Activated partial thromboplastin time (a PTT) in platelet poor plasma bycoagulation assay 31 s 24-35 Fibrin D-dimer FEU measurement in platel et poor plasma (mass/volume) - 03/06/17 08:55 Fibrin D-dimer FEU measurement in platelet poor plasma (mass/volume) < ug/mL 0.00-0.49 Comprehensive metabolic panel - 03/06/17 08:55 Serum or plasma sodium measurement (moles/volume) 137 mmol/L 135-145 Serum or plasma potassium measurement (moles/volume) 4.0 mmol/L 3.6-5.0 Serum or plasma chloride measurement (moles/volume) 104 mmol/L 98-107 Carbon dioxide 26 mmol/L 21-32 Serum or plasma anion gap determination (moles/volume) 7 mmol/L 5-14 Serum or plasma urea nitrogen measurement (mass/volume ) 14 mg/dL 7-18 Serum or plasma creatinine measurement (mass/volume) 0.80 mg/dL 0.60-1.30 Serum or plasma urea nitrogen/creatinine mass ratio 18 NRG Serum or plasma creatinine measurement w ith calculation of estimated glomerular filtration rate > NRG Serum or plasma glucose measurement (mass/volume) 93 mg/dL 70-105 Serum or plasma calcium measurement (mass/volume) 8.8 mg/dL 8.5-10.1 Serum or plasma total bilirubin measurement (mass/volu me) 0.4 mg/dL 0.1-1.0 Serum or plasma alkaline phosphatase maritza surement (enzymatic activity/volume) 54 U/L 40-136 Serum or plasma aspartate aminotransfera se measurement (enzymatic activity/volume) 19 U/L 5-34 Serum or plasma alanine aminotransferase measurement (enzymatic activity/volume) 21 U/L 0-55 Serum or plasma protein measurement (mass/volume) 7.1 g/dL 6.4-8.2 Serum or plasma albumin measurement (mass/volume) 4.3 g/dL 3.2-4.5 Magnesium - 03/06/17 08:55 Magnesium 2.2 mg/dL 1.8-2.4 Serum or plasma lithium measurement (mol es/volume) - 03/06/17 08:55 BNP level 24.9 pg/mL <100.0 Serum or plasma troponin i.cardiac measu rement (mass/volume) - 03/06/17 08:55 Serum or plasma troponin i.cardiac measurement (mass/v olume) < ng/mL <0.30 Myoglobin, serum - 03/06/17 08:55 Myoglobin, serum 28.8 ng/mL 10.0-92.0 Serum or plasma troponin i.cardiac measu rement (mass/volume) - 03/06/17 11:37 Serum or plasma troponin i.cardiac measurement (mass/v olume) < ng/mL <0.30 Myoglobin, serum - 03/06/17 11:37 Myoglobin, serum 30.6 ng/mL 10.0-92.0 Automated blood complete blood count (he mogram) panel - 03/14/17 07:34 Blood leukocytes automated count (number/volume) 8.6 10*3/uL 4.3-11.0 Blood erythrocytes automated count (number/volume) 4.87 10*6/uL 4.35-5.85 Venous blood hemoglobin measurement (mass/volume) 14.7 g/dL 13.3-17.7 Blood hematocrit (volume fraction) 43 % 40-54 Automated erythrocyte mean corpuscular volume 89 [ foz_us] 80-99 Automated erythrocyte mean corpuscular h emoglobin (mass per erythrocyte) 30 pg 25-34 Automated erythrocyte mean corpuscular h emoglobin concentration measurement (mass/volume) 34 g/dL 32-36 Automated erythrocyte distribution width ratio 13. 4 % 10.0- 14.5 Automated blood platelet count (count/volume) 326 10*3/uL 130-400 Automated blood platelet mean volume measurement 10.6 [foz_us] 7.4-10.4 Comprehensive metabolic panel - 03/14/17 07:34 Serum or plasma sodium measurement (moles/volume) 140 mmol/L 135-145 Serum or plasma potassium measurement (moles/volume) 3.9 mmol/L 3.6-5.0 Serum or plasma chloride measurement (moles/volume) 103 mmol/L 98-107 Carbon dioxide 29 mmol/L 21-32 Serum or plasma anion gap determination (moles/volume) 8 mmol/L 5-14 Serum or plasma urea nitrogen measurement (mass/volume ) 19 mg/dL 7-18 Serum or plasma creatinine measurement (mass/volume) 0.98 mg/dL 0.60-1.30 Serum or plasma urea nitrogen/creatinine mass ratio 19 NRG Serum or plasma creatinine measurement w ith calculation of estimated glomerular filtration rate > NRG Serum or plasma glucose measurement (mass/volume) 98 mg/dL 70-105 Serum or plasma calcium measurement (mass/volume) 9.5 mg/dL 8.5-10.1 Serum or plasma total bilirubin measurement (mass/volu me) 0.7 mg/dL 0.1-1.0 Serum or plasma alkaline phosphatase maritza surement (enzymatic activity/volume) 57 U/L 40-136 Serum or plasma aspartate aminotransfera se measurement (enzymatic activity/volume) 19 U/L 5-34 Serum or plasma alanine aminotransferase measurement (enzymatic activity/volume) 22 U/L 0-55 Serum or plasma protein measurement (mass/volume) 7.7 g/dL 6.4-8.2 Serum or plasma albumin measurement (mass/volume) 4.5 g/dL 3.2-4.5 Lipid 1996 panel - 03/14/17 07:34 Serum or plasma triglyceride measurement (mass/volume) 88 mg/dL <150 Serum or plasma cholesterol measurement (mass/volume) 118 mg/dL < 200 Serum or plasma cholesterol in HDL measurement (mass/v olume) 37 mg/dL 40-60 Cholesterol in LDL [mass/volume] in serum or plasma by direct assay 65 mg/dL 1-129 Serum or plasma cholesterol in VLDL measurement (mass/ volume) 18 mg/dL 5-40 PT panel in platelet poor plasma by coag ulation assay - 03/14/17 07:34 Prothrombin time (PT) in platelet poor plasma by coagu lation assay 13.0 s 12.2-14.7 INR in platelet poor plasma or blood by coagulation as say 1.0 0.8-1.4 Activated partial thromboplastin time (a PTT) in platelet poor plasma bycoagulation assay - 03/14/17 07:34 Activated partial thromboplastin time (a PTT) in platelet poor plasma bycoagulation assay 29 s 24-35 Methicillin resistant Staphylococcus aur eus (MRSA) screening culture - 03/14/17 07:34 Methicillin resistant Staphylococcus aureus (MRSA) scr eening culture NEG NRG Lipid Panel - 11/23/17 08:30 C/HDL 4.9 3.7-6.7 Cholesterol 118 mg/dL 100-240 HDL 24 mg/dL 30-85 LDL-Calculated 16 mg/dL 0-100 Trig 389 mg/dL 35-160 VLDL 78 mg/dL 0-42 Lipid Panel - 05/18/18 08:20 C/HDL 3.8 3.7-6.7 Cholesterol 130 mg/dL 100-240 HDL 34 mg/dL 30-85 LDL-Calculated 78 mg/dL 0-100 Trig 92 mg/dL 35-160 VLDL 18 mg/dL 0-42 Lipid Panel - 12/06/18 09:30 C/HDL 4.8 3.7-6.7 Cholesterol 133 mg/dL 100-240 HDL 28 mg/dL 30-85 LDL-Calculated 70 mg/dL 0-100 Trig 177 mg/dL 35-160 VLDL 35 mg/dL 0-42 Lyme Ab/Western Blot Reflex - 02/11/19 1 7:12 Lyme IgG/IgM Ab <0.91 ISR 0.00-0.90 Lyme Disease Ab, Quant, IgM <0.80 index 0.00-0.79 Fede Wan Spotted Fev, IgG, Qn - 9 17:12 RMSF, IgG, EIA Positive Negative RMSF, IgG, IFA - 02/11/19 17:12 RMSF, IgG, IFA 1:64 Neg <1:64 Fede Wan Spotted Fever, IgM - 02/11/19 17:12 Fede Mtn Spotted Fever, IgM 0.61 index 0.00-0.89 Thyroid Stimulating Hormone - 02/11/19 1 7:12 TSH 0.73 mIU/mL 0.32-5.00 Ehrlichia Ab Panel - 02/11/19 17:12 E. CHAFFEENSIS (HME) IGG TITER NEGATIVE NEG:<1:64 E. CHAFFEENSIS (HME) IGM TITER NEGATIVE NEG:<1:20 HGE IGG TITER NEGATIVE NEG:<1:64 HGE IGM TITER NEGATIVE NEG:<1:20 Fede Mtn Spotted Fev,IgG - 02/11/19 17: 12 RMSF, IGG, EIA POSITIVE NEGATIVE RMSF, IGG, IFA 1:64 NEG <1:64 Francisella tularensis Antibody IFA - 17:12 FRANCISELLA TULARENSIS IGG NEGATIVE NEG ATIVE FRANCISELLA TULARENSIS IGM NEGATIVE NEG ATIVE Francisella tularensis Abs - 02/11/19 17 :12 Francisella tularensis IgG Negative Neg ative Francisella tularensis IgM Negative Neg ative Ehrlichia Ab Panel - 02/11/19 17:12 E. chaffeensis (HME) IgG Titer Negative Neg:<1:64 E. chaffeensis (HME) IgM Titer Negative Neg:<1:20 HGE IgG Titer Negative Neg:<1:64 HGE IgM Titer Negative Neg:<1:20 BMP - 09/10/19 12:04 Anion Gap 13 6-14 BUN 18 mg/dL 5-25 Calcium 9.5 mg/dL 8.3-10.4 Chloride 103 mmol/L 95-114 CO2 26 mEq/L 22-33 Creat 0.84 mg/dL 0.50-1.50 eGFR 96 mL/min/1.73m2 >59 Glucose 96 mg/dL 70-110 Osmo 287 280-295 Potassium 4.4 mmol/L 3.5-5.3 Sodium 138 mmol/L 134-148 [facility]ated [facility] - 01/28/20 09:32 Blood leukocytes automated count (number/volume) 7.5 10*3/uL 4.3-11.0 Blood erythrocytes automated count (number/volume) 4.77 10*6/uL 4.35-5.85 Venous blood hemoglobin measurement (mass/volume) 14.8 g/dL 13.3-17.7 Blood hematocrit (volume fraction) 43 % 40-54 Automated erythrocyte mean corpuscular volume 91 [ foz_us] 80-99 Automated erythrocyte mean corpuscular h emoglobin (mass per erythrocyte) 31 pg 25-34 Automated erythrocyte mean corpuscular h emoglobin concentration measurement (mass/volume) 34 g/dL 32-36 Automated erythrocyte distribution width ratio 13. 2 % 10.0- 14.5 Automated blood platelet count (count/volume) 328 10*3/uL 130-400 Automated blood platelet mean volume measurement 10.5 [foz_us] 7.4-10.4 Comprehensive metabolic panel - 01/28/20 09:32 Serum or plasma sodium measurement (moles/volume) 139 mmol/L 135-145 Serum or plasma potassium measurement (moles/volume) 4.0 mmol/L 3.6-5.0 Serum or plasma chloride measurement (moles/volume) 104 mmol/L 98-107 Carbon dioxide 26 mmol/L 21-32 Serum or plasma anion gap determination (moles/volume) 9 mmol/L 5-14 Serum or plasma urea nitrogen measurement (mass/volume ) 18 mg/dL 7-18 Serum or plasma creatinine measurement (mass/volume) 0.92 mg/dL 0.60-1.30 Serum or plasma urea nitrogen/creatinine mass ratio 20 NRG Serum or plasma creatinine measurement w ith calculation of estimated glomerular filtration rate > NRG Serum or plasma glucose measurement (mass/volume) 92 mg/dL 70-105 Serum or plasma calcium measurement (mass/volume) 9.6 mg/dL 8.5-10.1 Serum or plasma total bilirubin measurement (mass/volu me) 0.6 mg/dL 0.1-1.0 Serum or plasma alkaline phosphatase maritza surement (enzymatic activity/volume) 53 U/L 40-136 Serum or plasma aspartate aminotransfera se measurement (enzymatic activity/volume) 27 U/L 5-34 Serum or plasma alanine aminotransferase measurement (enzymatic activity/volume) 29 U/L 0-55 Serum or plasma protein measurement (mass/volume) 7.8 g/dL 6.4-8.2 Serum or plasma albumin measurement (mass/volume) 4.7 g/dL 3.2-4.5 Lipid 1996 panel - 01/28/20 09:32 Serum or plasma triglyceride measurement (mass/volume) 124 mg/dL <150 Serum or plasma cholesterol measurement (mass/volume) 133 mg/dL < 200 Serum or plasma cholesterol in HDL measurement (mass/v olume) 34 mg/dL 40-60 Cholesterol in LDL [mass/volume] in serum or plasma by direct assay 84 mg/dL 1-129 Serum or plasma cholesterol in VLDL measurement (mass/ volume) 25 mg/dL 5-40 PT panel in platelet poor plasma by coag ulation assay - 01/28/20 09:32 Prothrombin time (PT) in platelet poor plasma by coagu lation assay 13.1 s 12.2-14.7 INR in platelet poor plasma or blood by coagulation as say 1.0 0.8-1.4 Activated partial thromboplastin time (a PTT) in platelet poor plasma bycoagulation assay - 01/28/20 09:32 Activated partial thromboplastin time (a PTT) in platelet poor plasma bycoagulation assay 30 s 24-35 Encounters ACCT No. Visit Date/Time Discharge Status Pt. Type Provider Facility Loc./Unit Complaint [id number] 02/14/2019 17:06:00 Document Registration [id number] 10/01/2019 07:19:00 020 23:59:59 CLS Outpatient EAGLE GIFFORD FACC, ADA HART CC DS [facility] CARD PALPITATION S,CHEST DISCOMFORT,CAD,HTN [id number] 09/23/2019 14:36:00 020 23:59:59 CLS Outpatient EAGLE GIFFORD FACC, ADA HART CC DS [facility] CARD PALPITATION S,CHEST DISCOMFORT,CAD,HTN [id number] 06/12/2018 11:18:00 018 23:59:59 CLS Outpatient GRAZYNA THOMAS [facility] CARD CHEST DISCOMFOR T [id number] 03/14/2017 07:18:00 017 13:25:00 DIS Outpatient GRAZYNA THOMAS [facility] CATH CHEST PAIN,CAD, CAROTID ARTERIAL DISEASE [id number] 03/06/2017 08:42:00 017 12:31:00 DIS Outpatient GRACE AREVALO MD [facility] ER CHEST TIGHTNESS [id number] 11/29/2016 07:34:00 017 23:59:59 CLS Outpatient EAGLE GIFFORD FACC, ADA HART CC DS [facility] CARD CHEST DISCO MFORT [id number] 11/25/2016 21:01:00 017 14:16:00 DIS Inpatient CAMILO FARRIS MD [facility] ICU CHEST PAIN [id number] 11/04/2016 08:20:00 017 14:45:00 DIS Inpatient EAGLE GIFFORD FACC, ADA HART CCD S [facility] ICU NON STEMI [id number] 01/28/2020 09:44:00 Document Registration [id number] 09/10/2019 12:02:00 09/10/2019 23:59 :00 DIS Outpatient Dory Jodi [id number] 09/10/2019 08:08:00 09/10/2019 23:59 :00 DIS Outpatient Ada Guillermo [id number] 08/26/2019 10:15:00 08/26/2019 23:59 :00 DIS Outpatient Yasmine Holbrook [id number] 02/11/2019 17:10:00 02/11/2019 23:59: 00 DIS Outpatient Michelle Nino [id number] 12/06/2018 13:19:00 12/06/2018 23:59: 00 DIS Outpatient Ada Guillermo [id number] 05/18/2018 08:49:00 05/18/2018 23:59: 00 DIS Outpatient Ada Guillermo [id number] 11/23/2017 11:51:00 11/23/2017 23:59: 00 DIS Outpatient Grazyna Thomas [id number] 02/11/2019 14:15:00 Document Registration [id number] 07/23/2018 14:13:00 Document Registration [id number] 05/18/2018 08:13:00 Document Registration [id number] 10/20/2017 09:32:00 Document Registration [id number] 05/18/2018 08:49:00 Document Registration [id number] 02/19/2019 09:13:00 Document Registration [id number] 02/14/2019 15:06:00 Document Registration
[2020-01-28] MEDS ORDERED: fentaNYL INJECTION 100 MCG/2 ML AMP ONE (12:36)
[2020-01-28] MEDS ORDERED: MIDAZOLAM 5 MG/5 ML (VERSED) VIAL ONE (12:36)
--- NOTE | 2020-01-28 12:55 | Cardiac Procedure Note-CS/ASA ---
Pre-Procedure Note Pre-Op Procedure Note H&P Reviewed The H&P was reviewed, patient examined and no changes noted. Date H&P Reviewed: Jan 28, 2020 Time H&P Reviewed: 12:55 Conscious Sedation Pre-Proced Time 12:55 ASA Score 3 For ASA 3 and 4: Consider anesthesia and medical clearance. Also, for patients with a history of failed moderate sedation consider anesthesia. Airway Lungs Heart ASA score ASA 1: a normal healthy patient ASA 2: a patient with a mild systemic disease (mid diabetes, controlled hypertension, obesity ASA 3: a patient with a severe systemic disease that limits activity (angina, COPD, prior Myocardial infarction) ASA 4: a patient with an incapacitating disease that is a constant threat to life (CHF, renal failure) ASA 5: a moribund patient not expected to survive 24 hrs. (ruptured aneurysm) ASA 6: a declared brain- patient whose organs are being harvested. For emergent operations, add the letter E after the classification Mallampati Classification Grade 2 Sedation Plan Analgesia, Amnesia, Plan communicated to team members, Discussed options with patient/fam, Discussed risks with patient/fam The patient is an appropriate candidate to undergo the planned procedure, sedation, and anesthesia. The patient immediately re-assessed prior to indication. ADRYAN RINCON MD FACP FAC CCDS Jan 28, 2020 12:55
[2020-01-28] MEDS ORDERED: PATIENT MAY USE OWN MEDS, ALL PO SCH (13:30)
--- NOTE | 2020-01-28 13:31 | Discharge Inst-Post CATH ---
Discharge Inst-CATH/EP Post Cardiac Cath/EP D/C Inst Follow Up/Plan F/u with Dr Guillermo in 2 weeks ACTIVITY * Go Home directly and rest. * Limit activity of the leg (or wrist if it was used) for 7 days including aerobics, swimming, jogging, bicycling, etc. * Restrict stair-climbing for 7 days if possible, if not, climb up with your no n-cath leg, then bring together on the same step. * Avoid lifting, pushing, pulling or excessive movement of the affected ext remity for 7 days. * Customary sexual activity may be resumed after 2 days-use caution not to use a position that strains or causes pain to the affected extremity. * No driving for 24 hours. * NO SMOKING. * Avoid straining for bowel movements for 7 days. * Gentle walking on level ground is allowed. * Returning to work will depend on the type of procedure and the results. Your doctor will discuss this with you. CALL YOUR DOCTOR FOR ANY OF THE FOLLOWING: *If bleeding from the puncture site occurs- Apply gentle pressure to site with clean cloth and call your doctor or EMS. * If a knot or lump forms under the skin, increases in size, or causes pain. * If bruising appears to be worsening or moving further down your leg instead of disappearing. * Temperature above 101 F. CARE OF YOUR GROIN INCISION; * Bruising or purple discoloration of the skin near the puncture site is common. * You may shower only, no bathtub bathing for 5 days. Be careful to avoid slipping as your leg may feel stiff. * If a closure device was used on your femoral artery, please see the attached guide regarding care of the device and your leg. * Leave dressing on FOR 24 hours. CARE OF YOUR WRIST INCISION; * Bruising or purple discoloration of the skin near the puncture site is common. * You may shower. * DO NOT submerge wrist. * Leave dressing on FOR 24 hours. ADRYAN GUILLERMO MD FACP FAC CCDS Jan 28, 2020 13:31
--- NOTE | 2020-01-28 13:32 | Discharge Inst-Cardiology ---
Discharge Inst-Cardiac Discharge Medications Continued Medications: Aspirin (Aspirin) 81 Mg Tab.chew 81 MG PO DAILY for 90 Days, #90 TAB 3 Refills Atorvastatin Calcium (Atorvastatin Calcium) 20 Mg Tablet 40 MG PO HS for 90 Days, #90 TAB 3 Refills Clopidogrel Bisulfate (Clopidogrel) 75 Mg Tablet 75 MG PO DAILY for 90 Days, #90 TAB 3 Refills Lisinopril (Lisinopril) 20 Mg Tablet 20 MG PO DAILY, TAB Metoprolol Succinate (Metoprolol Succinate) 25 Mg Tab.er.24h 25 MG PO DAILY for 90 Days, #90 TAB 3 Refills Nitroglycerin (Nitrostat) 0.4 Mg Tab.subl 0.4 MG SL PRN PRN for CHEST PAIN, #30 TAB Pantoprazole Sodium (Protonix) 40 Mg 40 MG PO DAILY, TAB ADRYAN RINCON MD FACP FAC CCDS Jan 28, 2020 13:32
--- NOTE | 2020-01-28 13:46 | CARDIAC CATHETERIZATION ---
DATE OF SERVICE: 01/28/2020 CARDIAC CATHETERIZATION REPORT INDICATIONS: The patient is a 49-year-old man, who is known to have coronary artery disease and who had stenting of the mid left anterior descending artery in 2017. Lately, he has had recurrence of symptoms that are reminiscent of previous angina. Cardiac catheterization was carried out after having obtained an informed consent. DESCRIPTION OF PROCEDURE: He was brought to the cardiac catheterization laboratory in a fasting state. Right groin was prepared and draped in the usual sterile fashion. Lidocaine 1% was used for local anesthesia. Modified Seldinger technique was used to advance a 5-Iranian sheath in the right femoral artery, 5-Iranian JL4 catheter for left coronary angiography, 5-Iranian JR4 catheter for right coronary angiography, 5-Iranian pigtail catheter was used for left heart catheterization and left ventricular angiography. The diagnostic catheter was removed. Angiography of the right femoral artery was carried out through the sheath. Mynx was used to achieve hemostasis following Terumo sheath removal. He tolerated the procedure well. HEMODYNAMICS: Left ventricular end-diastolic pressure following coronary angiography was 8 mmHg. There was no significant pressure gradient on pullback across the aortic valve. Ascending aortic pressure was 124/76 with a mean of 96 mmHg. CORONARY ANGIOGRAPHY: Left main coronary artery had mild plaque. Left anterior descending artery had a patent stent in its mid portion. There is mild plaque in the left anterior descending. Left circumflex artery did not exhibit significant disease. Right coronary artery appeared to be mild plaque. LEFT VENTRICULAR ANGIOGRAPHY: Left ventricular angiography was carried out in the right anterior oblique projection. Global left ventricular systolic function was normal. No regional wall motion abnormalities were seen. Left ventricular ejection fraction is approximately 60%. CONCLUSIONS: 1. Angiographically mild coronary artery disease. There is a widely patent stent in the mid left anterior descending artery known to be Alpine Xience 2.75 x 28 placed in 2017. 2. Normal global left ventricular systolic function with an ejection fraction approximately 60%. 3. Normal left ventricular end-diastolic pressure. DISCUSSION AND RECOMMENDATIONS: Based on results of the study, it appears appropriate to continue a conservative approach. Risk factor modification have been reviewed. Current regimen is being continued. Outpatient followup is advised. Job ID: [id number] DocumentID: [id number] Dictated Date: 01/28/2020 13:27:45 Dot Etcher Apprentice Date: 01/28/2020 13:45:19 Dictated By: ADRYAN RINCON MD, MA, FACP, FACC, [facility]
== END 2020-01-28 17:00 | disposition home or self-care (01) ==
LOC: CATH 09:12 → SDC 13:44 → CATH 17:00
PROVIDERS: ATTEND Internal Medicine Cardiovascular Disease
DX: I25.10 Atherosclerotic heart disease of native coronary artery without angina pectoris (principal); I10 Essential (primary) hypertension; K21.9 Gastro-esophageal reflux disease without esophagitis; I77.9 Disorder of arteries and arterioles, unspecified; E78.49 Other hyperlipidemia; R63.4 Abnormal weight loss; Z79.82 Long term (current) use of aspirin; Z79.899 Other long term (current) drug therapy; Z79.02 Long term (current) use of antithrombotics/antiplatelets; Z98.52 Vasectomy status
CPT/HCPCS: 80053; 80061; 85027; 85610; 85730; 87081; 93458; C1760; C1894; 36415

== ENCOUNTER → 2022-09-02 | Outpatient (CLI) | payer BC, OTHER ==
[~2022-09-02] MED LIST changes: -LISI-556 PO; +LISI20TA26 PO; +LISI5TAB20 PO; +PANT40SU PO; +REGADENOSON 0.4 MG/5 ML SYR (LEXISCAN) IV ONE
[2022-09-02] MEDS: CATHETER FLUSH 10 ML SYR IVP PRN (07:41)
[2022-09-02 08:51] VITALS: BP 161/94
== END ==
LOC: CARD 07:22
PROVIDERS: ATTEND Internal Medicine Cardiovascular Disease
DX: I25.10 Atherosclerotic heart disease of native coronary artery without angina pectoris (principal)
CPT/HCPCS: 78452; 93017